=== PATIENT | female | born 1950 | race Caucasian/White ===

== ENCOUNTER → 2022-09-18 09:25 | Outpatient (BNVA) | payer MEDICARE, SELFPAY | PROVIDERS: PCP Family Medicine; Visit Provider Student in an Organized Health Care Education/Training Program | DX: M17.0 Bilateral primary osteoarthritis of knee (principal); M45.9 Ankylosing spondylitis of unspecified sites in spine; M70.61 Trochanteric bursitis, right hip; M70.62 Trochanteric bursitis, left hip; Z79.899 Other long term (current) drug therapy | CPT/HCPCS: 20610; 99202 ==

== ENCOUNTER 2022-09-18 10:48 | Outpatient (REF) | payer MEDICARE, SELFPAY ==
[2022-09-18 13:35] LABS: MANUAL DIFF FLAG NO
[2022-09-18 13:44] LABS: Basophils Absolute Auto 0.1 X10*3/uL (0.0-0.2); Basophils Percent Auto 1.7 % (0-2); Eosinophils Absolute Auto 0.1 X10*3/uL (0.0-0.4); Hematocrit 37.9 % (37.0-47.0); Hemoglobin 12.6 g/dl (12.0-16.0); Lymphocytes Absolute Auto 1.8 X10*3/uL (1.2-4.9); Lymphocytes Percent Auto 49.6 % (20-40); Mean Corpuscular HGB Conc 33.2 g/dl (31.0-35.0); Mean Corpuscular Hemoglobin 31.5 pg (27.0-33.0); Mean Corpuscular Volume 94.8 fL (80.0-98.0); Mean Platelet Volume 11.5 fL (9.4-12.3); Monocytes Absolute Auto 0.3 X10*3/uL (0.1-1.2); Monocytes Percent Auto 8.2 % (2-11); Neutrophils Absolute Auto 1.4 x10*3/uL (2.0-8.3); Neutrophils Percent Auto 38.5 % (45-73); Platelet Count 246 X10*3/uL (160-400); Red Cell Distribution Width 13.4 % (11.0-16.0); White Blood Count 3.6 X10*3/uL (4.8-10.8)
[2022-09-18 14:25] LABS: Erythrocyte Sedimentation Rate 5 MM/HR (0-20)
[2022-09-18 14:44] LABS: Alanine Aminotransferase 17 U/L (0-31); Albumin Level 4.3 g/dL (3.5-5.0); Alkaline Phosphatase 74 U/L (39-117); Anion Gap 11 (12-20); Aspartate Amino Transferase 19 U/L (5-31); Bilirubin Total 0.7 mg/dL (0.0-1.0); Blood Urea Nitrogen 16 mg/dL (9-16); C Reactive Protein < 0.10 mg/dL (< or = 0.50); Calcium 9.5 mg/dL (8.4-10.2); Carbon Dioxide 30 mmol/L (22-29); Chloride 105 mmol/L (96-108); Estimated Glomerular Filt Rate > 60; Glucose Random 94 mg/dL (60-115); Potassium 3.8 mmol/L (3.3-5.1); Sodium 142 mmol/L (135-145); Total Protein 6.8 g/dL (6.5-8.0)
[2022-09-19 10:20] LABS: HBS Num1 48.93 mIU/mL (0-7.99); HBc Num1 0.06 S/CO (0.00-0.79); HBsAGNum1 0.43 S/CO (0.00-0.99); Hepatitis A Antibody IgM 0.14 Index (0-0.79); Hepatitis B Core Antibody Nonreactive (Nonreactive); Hepatitis B Surface Antigen Negative (Negative); ~HepC Num1 0.09 S/CO (0.00-0.79); ~Hepatitis A Antibody IgM Nonreactive (Nonreactive); ~Hepatitis B Surface Antibody REACTIVE (Nonreactive); ~Hepatitis C Antibody Nonreactive (Nonreactive)
[2022-09-20 15:49] LABS: TS Negative Control Passed; TS Panel A 5; TS Panel B 12; TS Positive Control Passed; TSpotTB Positive (Negative)
== END 2022-09-18 10:49 | disposition home or self-care (01) ==
LOC: HO.10HDL 10:48
PROVIDERS: Visit Provider Student in an Organized Health Care Education/Training Program
DX: Z11.1 Encounter for screening for respiratory tuberculosis (principal); M45.9 Ankylosing spondylitis of unspecified sites in spine; M17.0 Bilateral primary osteoarthritis of knee; M70.61 Trochanteric bursitis, right hip; M70.62 Trochanteric bursitis, left hip; Z79.899 Other long term (current) drug therapy; Z11.59 Encounter for screening for other viral diseases; Z72.89 Other problems related to lifestyle
CPT/HCPCS: 20610; 36415; 80053; 85025; 85652; 86140; 86481; 86704; 86706; 86709; 86803; 87340; 99202

== ENCOUNTER 2022-10-10 11:27 | Outpatient (REF) | payer MEDICARE, SELFPAY ==
--- NOTE | ~2022-10-10 | XR_ITS ---
EXAMINATION: XR KNEE, RIGHT XR KNEE, LEFT XR KNEE AP STANDING CLINICAL INFORMATION: Bilateral primary osteoarthritis. COMPARISON: None TECHNIQUE: Four views of the right knee. Four views of the left knee. AP bilateral standing view of the knees was obtained. FINDINGS: RIGHT KNEE: There is marked asymmetric narrowing of the lateral joint space compartment. The medial and patellofemoral compartments are well-maintained. There is tricompartment peripheral osteophyte formation. No fracture or dislocation is seen. There is a small joint effusion. There is no foreign body. LEFT KNEE: Bony mineralization is normal. There is symmetric mild narrowing of the lateral and medial joint space compartments. The patellofemoral compartment shows mild narrowing and articular surface irregularity. No fracture, dislocation or joint effusion is seen. There is no foreign body. XR/XR knee standing BI IMPRESSION: 1. There is tricompartment osteoarthritic change of the right knee, most pronounced of the lateral joint space compartment, where it is severe. 2. There is a small right knee joint effusion. 3. There is mild tricompartment osteoarthritic change of the left knee.
--- NOTE | ~2022-10-10 | XR_ITS ---
EXAMINATION: XR KNEE, RIGHT XR KNEE, LEFT XR KNEE AP STANDING CLINICAL INFORMATION: Bilateral primary osteoarthritis. COMPARISON: None TECHNIQUE: Four views of the right knee. Four views of the left knee. AP bilateral standing view of the knees was obtained. FINDINGS: RIGHT KNEE: There is marked asymmetric narrowing of the lateral joint space compartment. The medial and patellofemoral compartments are well-maintained. There is tricompartment peripheral osteophyte formation. No fracture or dislocation is seen. There is a small joint effusion. There is no foreign body. LEFT KNEE: Bony mineralization is normal. There is symmetric mild narrowing of the lateral and medial joint space compartments. The patellofemoral compartment shows mild narrowing and articular surface irregularity. No fracture, dislocation or joint effusion is seen. There is no foreign body. XR/XR knee RT 3V IMPRESSION: 1. There is tricompartment osteoarthritic change of the right knee, most pronounced of the lateral joint space compartment, where it is severe. 2. There is a small right knee joint effusion. 3. There is mild tricompartment osteoarthritic change of the left knee.
--- NOTE | ~2022-10-10 | XR_ITS ---
EXAMINATION: XR KNEE, RIGHT XR KNEE, LEFT XR KNEE AP STANDING CLINICAL INFORMATION: Bilateral primary osteoarthritis. COMPARISON: None TECHNIQUE: Four views of the right knee. Four views of the left knee. AP bilateral standing view of the knees was obtained. FINDINGS: RIGHT KNEE: There is marked asymmetric narrowing of the lateral joint space compartment. The medial and patellofemoral compartments are well-maintained. There is tricompartment peripheral osteophyte formation. No fracture or dislocation is seen. There is a small joint effusion. There is no foreign body. LEFT KNEE: Bony mineralization is normal. There is symmetric mild narrowing of the lateral and medial joint space compartments. The patellofemoral compartment shows mild narrowing and articular surface irregularity. No fracture, dislocation or joint effusion is seen. There is no foreign body. XR/XR knee LT 3V IMPRESSION: 1. There is tricompartment osteoarthritic change of the right knee, most pronounced of the lateral joint space compartment, where it is severe. 2. There is a small right knee joint effusion. 3. There is mild tricompartment osteoarthritic change of the left knee.
== END 2022-10-10 11:28 | disposition home or self-care (01) ==
LOC: HO.XRAY 11:27
PROVIDERS: PCP Family Medicine; Visit Provider Student in an Organized Health Care Education/Training Program
DX: M17.0 Bilateral primary osteoarthritis of knee (principal)
CPT/HCPCS: 73562; 73564; 73565

== ENCOUNTER → 2022-12-10 10:11 | Outpatient (BNVA) | payer MEDICARE, SELFPAY | PROVIDERS: PCP Family Medicine; Visit Provider Student in an Organized Health Care Education/Training Program | DX: M45.9 Ankylosing spondylitis of unspecified sites in spine (principal); M17.11 Unilateral primary osteoarthritis, right knee; M70.62 Trochanteric bursitis, left hip; M70.61 Trochanteric bursitis, right hip; M19.042 Primary osteoarthritis, left hand; M19.041 Primary osteoarthritis, right hand; Z22.7 Latent tuberculosis; Z79.631 Long term (current) use of antimetabolite agent; Z79.899 Other long term (current) drug therapy | CPT/HCPCS: 20610; 99212 ==

== ENCOUNTER 2023-03-13 08:56 | Outpatient (REF) | payer MEDICARE, SELFPAY ==
[2023-03-13 11:04] LABS: MANUAL DIFF FLAG NO
[2023-03-13 11:43] LABS: Basophils Absolute Auto 0.1 X10*3/uL (0.0-0.2); Basophils Percent Auto 1.3 % (0-2); Eosinophils Absolute Auto 0.2 X10*3/uL (0.0-0.4); Eosinophils Percent Auto 3.6 % (0-4); Hematocrit 38.1 % (37.0-47.0); Hemoglobin 12.4 g/dl (12.0-16.0); Imm Gran Abs Auto 0.01 X10*3/uL (0.00-0.03); Imm Gran Pct Auto 0.2 % (0.0-0.4); Lymphocytes Absolute Auto 2.3 X10*3/uL (1.2-4.9); Lymphocytes Percent Auto 43.6 % (20-40); Mean Corpuscular HGB Conc 32.5 g/dl (31.0-35.0); Mean Corpuscular Volume 95.3 fL (80.0-98.0); Mean Platelet Volume 11.3 fL (9.4-12.3); Monocytes Absolute Auto 0.5 X10*3/uL (0.1-1.2); Monocytes Percent Auto 10.1 % (2-11); Neutrophils Absolute Auto 2.2 x10*3/uL (2.0-8.3); Neutrophils Percent Auto 41.2 % (45-73); Platelet Count 275 X10*3/uL (160-400); Red Cell Distribution Width 13.5 % (11.0-16.0); White Blood Count 5.2 X10*3/uL (4.8-10.8)
[2023-03-13 11:54] LABS: Alanine Aminotransferase 17 U/L (0-31); Albumin Level 4.1 g/dL (3.5-5.0); Alkaline Phosphatase 80 U/L (39-117); Anion Gap 10 (12-20); Aspartate Amino Transferase 20 U/L (5-31); Bilirubin Total 0.8 mg/dL (0.0-1.0); Blood Urea Nitrogen 15 mg/dL (9-16); C Reactive Protein 0.12 mg/dL (< or = 0.50); Calcium 9.6 mg/dL (8.4-10.2); Carbon Dioxide 31 mmol/L (22-29); Chloride 105 mmol/L (96-108); Estimated Glomerular Filt Rate > 60; Glucose Random 67 mg/dL (60-115); Potassium 3.9 mmol/L (3.3-5.1); Sodium 142 mmol/L (135-145); Total Protein 7.1 g/dL (6.5-8.0)
[2023-03-13 12:24] LABS: Erythrocyte Sedimentation Rate 8 MM/HR (0-20)
== END 2023-03-13 08:57 | disposition home or self-care (01) ==
LOC: HO.10HDL 08:56
PROVIDERS: Visit Provider Student in an Organized Health Care Education/Training Program
DX: Z79.899 Other long term (current) drug therapy (principal)
CPT/HCPCS: 36415; 80053; 85025; 85652; 86140

== ENCOUNTER 2023-03-18 08:53 | Outpatient (AMB) | payer MEDICARE, SELFPAY ==
[2023-03-18 09:01] VITALS: BP 114/62; PULSE 68; O2SAT 99; BMI 21.8
--- NOTE | 2023-03-18 09:01 | MHC.OFFVIS ---
Intake Vital Signs 03/18/23 09:01 Height 5 ft 7 in Weight 139 lb 1.787 oz BMI 21.8 BP 114/62 Blood Pressure Location Rt brachial Position Sitting Pulse 68 Pulse Source Pulse Oximeter Pulse Oximetry (%) 99 Intake Visit Reasons: Intake Note: Pt seen today fir follow up. C/o right knee pain. 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 Required: No Accompanied by: Self / Same As Patient Allergies codeine Allergy (Intermediate, Verified 03/18/23 09:04) NAUSEA/VOMITING isoniazid Allergy (Intermediate, Verified 03/18/23 09:04) LFT ABNORMALITY Medication List - Last Reconciled 03/18/23 by Shirley New MD ascorbate calcium (vitamin C) 500 mg PO DAILY calcium citrate-vitamin D2 250 mg-2.5 mcg (100 unit) (Jourdan-Citrate) tabs PO BID cholecalciferol (vitamin D3) 125 mcg PO DAILY etanercept (Enbrel SureClick) 50 mg subcut QWEEK folic acid 0.8 mg PO DAILY magnesium 500 mg PO DAILY methotrexate sodium 12.5 mg (5 x 2.5 mg) PO QWEEK omega 1-com-qrp-fish oil 1,000 mg (120 mg-180 mg) (Fish Oil) 1 cap PO BID vitamins A,C,A-msuo-zzplsf 2,148 mcg-113 mg-45 mg-17.4mg (PreserVision AREDS) 2 tabs PO BID HPI HPI Comments History of Present Illness Details 72-year-old female returns for evaluation of HLA B27 positive ankylosing spondylitis. Doing well overall. The right knee intra-articular steroid injection done last visit provided significant relief for about 6 weeks. Patient stated that she is quite active. No other complaint compliant with methotrexate 12.5 mg weekly and Enbrel weekly Initial history: This is a 72-year-old female presents for evaluation of HLA B27 positive spondylitis as a new patient. 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 The condition started in 2006 and was initially diagnosed as PMR, symptoms appropriately responded to prednisone however once prednisone was tapered patient developed peripheral arthritis. In 2009 she was diagnosed as HLA B27 positive spondylitis. She was started on Enbrel with good response however she developed recurrent right knee effusion and methotrexate was added. She has been on Enbrel and methotrexate since 2010 with relatively good control of her symptoms. No history suggestive of uveitis or inflammatory bowel disease. Patient's main complaint today is right knee pain. Patient has had chronic right knee pain. She has had about 7 intra-articular cortisone injections in the past which provided some relief. Last injection was in June which gave her relief for 6-8 weeks. She has been going to physical therapy for her knee for 3 months during the fall without improvement. She has difficulty walking. She also was diagnosed with bilateral hip trochanteric bursitis and received steroid injections in the past which do provide some relief. [facility] Medical History Allergic rhinitis Ankylosing spondylitis Constipation DJD (degenerative joint disease) GERD (gastroesophageal reflux disease) IBS (irritable bowel syndrome) On usp drug therapy Sleep disorder Urge incontinence Surgical History No history of previous surgery Family History Mother Diabetes CVA (cerebral vascular accident) Arthritis Father Dementia Rheumatoid arthritis Maternal Grandmother Colon cancer Paternal Grandfather Heart disease Paternal Grandmother No problems noted. 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 Systems [facility] [place] Reports arthralgias Physical Exam Vital Signs: Last Vital Signs Pulse 68 03/18/23 09:01 BP 114/62 03/18/23 09:01 Pulse Ox 99 03/18/23 09:01 BMI result Body Mass Index 21.8 Const General: cooperative, healthy appearing, comfortable and no acute distress Nutritional Appearance: average body habitus Orientation/consciousness: patient oriented x3 Limitations: no limitations HEENT Head: Yes normocephalic and Yes atraumatic Mouth: moist mucous membranes Resp Effort & Inspection: normal respiratory effort and able to speak in complete sentences Auscultation: clear to auscultation bilaterally Cardio Rate: regular rate Rhythm: regular rhythm Heart sounds: S1 normal heart sound present and S2 normal heart sound present GI Inspection: No distended Palpation (GI): Soft to palpation and nontender Skin General skin exam: no rashes or lesions noted Neuro General: patient oriented x3 Extrem Other: Osteoarthritic changes of both hands with Heberden's and Priya's nodes with no active synovitis. Normal nailfold capillaroscopy Bilateral knee crepitus worse on the right Right knee pain with full extension and flexion Office Procedures Joint Injection/Drain Joint Injection/Drain Primary Site: right knee Prep: site was prepped using sterile technique and ethochloride spray was applied Injected: 40 mg of, Kenalog and other (2 mL of 1% lidocaine) Approach Used: medial parapatellar Procedure: The patient tolerated the procedure well Coding Details: With the patient's consent the right knee was prepped with ChloraPrep and alcohol. The skin was anesthetized with 2 cc of 1% lidocaine. The knee was then injected with 40 mg of triamcinolone and 2 cc of I % lidocaine. The patient tolerated the procedure with no immediate adverse effects. 29209 - Large joint Procedure code (CPT) selection complete Assessment & Plan Assessment & Plan (1) Ankylosing spondylitis: Comment: HLA B27 positive, diagnosed 2009 Enbrel started 2009 Methotrexate added 2010 Code(s): M45.9 - Ankylosing spondylitis of unspecified sites in spine Qualifiers: Ankylosing spondylitis location: unspecified site of spine Qualified Code(s): M45.9 - Ankylosing spondylitis of unspecified sites in spine Plan: This is a 72-year-old female who presents for evaluation of HLA B27 positive ankylosing spondylitis. She was initially diagnosed with PMR in 2006 and symptoms appropriately responded to steroids however she developed peripheral arthritis, she was then diagnosed as HLA B B27 positive ankylosing spondylitis and started on Enbrel, soon after methotrexate was added due to recurrent right knee effusion. Symptoms are stable. The majority of her complaints today are due to knee osteoarthritis Continue Enbrel once weekly and methotrexate 12.5 mg weekly plus folic acid Patient is on the patient assistance program from [employer] (2) Bilateral primary osteoarthritis of knee: Code(s): M17.0 - Bilateral primary osteoarthritis of knee Plan: Seems to be the most problematic symptom today. Right knee is worse. Reviewed right knee x-rays which showed severe OA changes in the lateral compartment. Most recent cortisone injection lasted about 6 weeks. Patient received numerous cortisone injections in the past. Initially they lasted more than 3 months, most recent injection only lasted 6 weeks. Cortisone injection seems to be less efficacious. Patient is interested in gel injections. With patient's consent right knee was injected with Kenalog today. Patient is not interested in right knee replacement at this time. 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 She has not had any major side effects. Safety labs every 4-6 months (4) Latent tuberculosis by blood test: Code(s): Z22.7 - Latent tuberculosis Plan: Completed INH treatment back in 2009 Plan I spent 30 minutes reviewing patient's chart, evaluating patient, ordering diagnostic workup, counseling patient and documenting in the chart Orders: Orders AMB Joint Injection/Aspiration Today M17.11 - Unilateral primary osteoarthritis, right knee Medications: Refilled methotrexate sodium 12.5 mg (5 x 2.5 mg) PO QWEEK 60 tabs 1RF Coding Level of Care Code Est Pt Level 4 (58617) Diagnoses Ankylosing spondylitis M45.9 Ankylosing spondylitis location: unspecified site of spine Bilateral primary osteoarthritis of knee M17.0 On usp drug therapy Z79.899 Latent tuberculosis by blood test Z22.7 CPT Codes Coding - 95342 Large joint: 84098 - Large joint ([id number])
== END 2023-03-18 09:34 | disposition home or self-care (01) ==
PROVIDERS: PCP Family Medicine; Visit Provider Student in an Organized Health Care Education/Training Program
DX: M45.9 Ankylosing spondylitis of unspecified sites in spine (principal); M17.0 Bilateral primary osteoarthritis of knee; Z79.899 Other long term (current) drug therapy; Z22.7 Latent tuberculosis
CPT/HCPCS: 20610; 99214

== ENCOUNTER → 2023-03-18 08:53 | Outpatient (BNVA) | payer MEDICARE, SELFPAY | PROVIDERS: PCP Family Medicine; Visit Provider Student in an Organized Health Care Education/Training Program | DX: M45.9 Ankylosing spondylitis of unspecified sites in spine (principal); M17.11 Unilateral primary osteoarthritis, right knee; Z22.7 Latent tuberculosis; Z79.52 Long term (current) use of systemic steroids; Z79.631 Long term (current) use of antimetabolite agent | CPT/HCPCS: 20610; 99212 ==

== ENCOUNTER 2023-06-12 15:43 | Outpatient (AMB) | payer MEDICARE, SELFPAY ==
--- NOTE | 2023-06-12 15:54 | MHC.OFFVIS ---
Intake Vital Signs 06/12/23 15:56 Height 5 ft 7 in Weight 126 lb 1.671 oz BMI 19.7 BP 116/64 Blood Pressure Location Rt brachial Position Sitting Pulse 78 Pulse Source Pulse Oximeter Pulse Oximetry (%) 96 Intake Visit Reasons: /Euflexxa inj Intake Note: Pt seen today for follow up and euflexxa injection #1 Director Of Residential Services Required: No Accompanied by: Self / Same As Patient Allergies codeine Allergy (Intermediate, Verified 03/18/23 09:04) NAUSEA/VOMITING isoniazid Allergy (Intermediate, Verified 03/18/23 09:04) LFT ABNORMALITY Medication List - Last Reconciled 06/12/23 by Shirley New MD ascorbate calcium (vitamin C) 500 mg PO DAILY calcium citrate-vitamin D2 250 mg-2.5 mcg (100 unit) (Jourdan-Citrate) tabs PO BID cholecalciferol (vitamin D3) 125 mcg PO DAILY etanercept (Enbrel SureClick) 50 mg subcut QWEEK folic acid 0.8 mg PO DAILY magnesium 500 mg PO DAILY methotrexate sodium 12.5 mg (5 x 2.5 mg) PO QWEEK omega 8-cdx-mvo-fish oil 1,000 mg (120 mg-180 mg) (Fish Oil) 1 cap PO BID sodium hyaluronate (viscosup) (Euflexxa) 20 mg (2 mL) intra-articular QWEEK 3 doses vitamins A,C,U-knjb-hauexm 2,148 mcg-113 mg-45 mg-17.4mg (PreserVision AREDS) 2 tabs PO BID HPI HPI Comments History of Present Illness Details 72-year-old female with HLA B27 positive ankylosing spondylitis returns for follow-up. She is here for her 1st Euflexxa injection for her right knee. Initial history: This is a 72-year-old female presents for evaluation of HLA B27 positive spondylitis as a new patient. 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 The condition started in 2006 and was initially diagnosed as PMR, symptoms appropriately responded to prednisone however once prednisone was tapered patient developed peripheral arthritis. In 2009 she was diagnosed as HLA B27 positive spondylitis. She was started on Enbrel with good response however she developed recurrent right knee effusion and methotrexate was added. She has been on Enbrel and methotrexate since 2010 with relatively good control of her symptoms. No history suggestive of uveitis or inflammatory bowel disease. Patient's main complaint today is right knee pain. Patient has had chronic right knee pain. She has had about 7 intra-articular cortisone injections in the past which provided some relief. Last injection was in June which gave her relief for 6-8 weeks. She has been going to physical therapy for her knee for 3 months during the fall without improvement. She has difficulty walking. She also was diagnosed with bilateral hip trochanteric bursitis and received steroid injections in the past which do provide some relief. 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 Systems [facility] [place] Reports arthralgias Physical Exam Vital Signs: Last Vital Signs Pulse 78 06/12/23 15:56 BP 116/64 06/12/23 15:56 Pulse Ox 96 06/12/23 15:56 BMI result Body Mass Index 19.7 Const General: cooperative, healthy appearing, comfortable and no acute distress Nutritional Appearance: average body habitus Orientation/consciousness: patient oriented x3 Limitations: no limitations HEENT Head: Yes normocephalic and Yes atraumatic Resp Effort & Inspection: normal respiratory effort and able to speak in complete sentences Neuro General: patient oriented x3 Extrem Other: Bilateral knee crepitus worse on the right Right knee pain with full extension and flexion Office Procedures Joint Injection/Drain Joint Injection/Drain Primary Site: right knee Prep: site was prepped using sterile technique and ethochloride spray was applied Approach Used: medial parapatellar Procedure: The patient tolerated the procedure well Coding Details: With the patient's consent the right knee was prepped with ChloraPrep and alcohol. The skin was anesthetized with 2 cc of 1% lidocaine. The knee was then injected with 20 mg of Euflexxa. The patient tolerated the procedure with no immediate adverse effects. - Large joint Procedure code (CPT) selection complete Assessment & Plan Assessment & Plan (1) Bilateral primary osteoarthritis of knee: Code(s): M17.0 - Bilateral primary osteoarthritis of knee Plan: Seems to be the most persistent problem. Right knee is worse. Reviewed right knee x-rays which showed severe OA changes in the lateral compartment. Most recent cortisone injection lasted about 6 weeks. Patient received numerous cortisone injections in the past. Initially they lasted more than 3 months, most recent injection only lasted 6 weeks. Cortisone injection seems to be less efficacious. We had discussed gel injections and patient agreed to proceed. With patient's consent the right knee was injected with 20 mg of Euflexxa today. Follow-up next week for 2nd dose Orders: Orders Complete Blood Count Auto Diff 1 Week M45.9 - Ankylosing spondylitis of unspecified sites in spine C Reactive Protein 1 Week M45.9 - Ankylosing spondylitis of unspecified sites in spine Erythrocyte Sedimentation Rate 1 Week M45.9 - Ankylosing spondylitis of unspecified sites in spine AMB Joint Injection/Aspiration Today M17.11 - Unilateral primary osteoarthritis, right knee Comprehensive Met. Panel 1 Week M45.9 - Ankylosing spondylitis of unspecified sites in spine Coding Level of Care Code Est Pt Level 3 (91934) Diagnoses Bilateral primary osteoarthritis of knee M17.0 CPT Codes Coding - Large joint: 65317 - Large joint ([id number])
[2023-06-12 15:56] VITALS: BP 116/64; PULSE 78; O2SAT 96; BMI 19.7
== END 2023-06-12 16:17 | disposition home or self-care (01) ==
PROVIDERS: PCP Family Medicine; Visit Provider Student in an Organized Health Care Education/Training Program
DX: M17.0 Bilateral primary osteoarthritis of knee (principal)
CPT/HCPCS: 20610; 99213

== ENCOUNTER → 2023-06-12 15:43 | Outpatient (BNVA) | payer MEDICARE, SELFPAY | PROVIDERS: PCP Family Medicine; Visit Provider Student in an Organized Health Care Education/Training Program | DX: M17.0 Bilateral primary osteoarthritis of knee (principal); M45.9 Ankylosing spondylitis of unspecified sites in spine | CPT/HCPCS: 20610; 99212; J7323 ==

== ENCOUNTER 2023-06-19 15:40 | Outpatient (AMB) | payer MEDICARE, SELFPAY ==
--- NOTE | 2023-06-19 15:39 | A.OFFVIS_ITS ---
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 Accompanied by: Self / Same As Patient Allergies codeine Allergy (Intermediate, Verified 03/18/23 09:04) NAUSEA/VOMITING isoniazid Allergy (Intermediate, Verified 03/18/23 09:04) LFT ABNORMALITY Medication List - Last Reconciled 06/19/23 by Shirley Nwe MD ascorbate calcium (vitamin C) 500 mg PO DAILY calcium citrate-vitamin D2 250 mg-2.5 mcg (100 unit) (Jourdan-Citrate) tabs PO BID cholecalciferol (vitamin D3) 125 mcg PO DAILY etanercept (Enbrel SureClick) 50 mg subcut QWEEK folic acid 0.8 mg PO DAILY magnesium 500 mg PO DAILY methotrexate sodium 12.5 mg (5 x 2.5 mg) PO QWEEK omega 6-aoz-ydu-fish oil 1,000 mg (120 mg-180 mg) (Fish Oil) 1 cap PO BID sodium hyaluronate (viscosup) (Euflexxa) 20 mg (2 mL) intra-articular QWEEK 3 doses vitamins A,C,O-zehr-grshvi 2,148 mcg-113 mg-45 mg-17.4mg (PreserVision AREDS) 2 tabs PO BID HPI HPI Comments History of Present Illness Details 72-year-old female with HLA B27 positive ankylosing spondylitis returns for follow-up. She is here for her 2nd Euflexxa injection for her right knee. States that her right knee was doing well over the last week, was quite active. She noticed while walking that her right knee is angled outside and clicks. She states that she has an ahdw-qka-bpemkau knee brace that helps. She denies any knee buckling or giving out. Initial history: This is a 72-year-old female presents for evaluation of HLA B27 positive spondylitis as a new patient. Her previous case management assistant left the practice. The condition started in 2006 and was initially diagnosed as PMR, symptoms appropriately responded to prednisone however once prednisone was tapered patient developed peripheral arthritis. In 2009 she was diagnosed as HLA B27 positive spondylitis. She was started on Enbrel with good response however she developed recurrent right knee effusion and methotrexate was added. She has been on Enbrel and methotrexate since 2010 with relatively good control of her symptoms. No history suggestive of uveitis or inflammatory bowel disease. Patient's main complaint today is right knee pain. Patient has had chronic right knee pain. She has had about 7 intra-articular cortisone injections in the past which provided some relief. Last injection was in June which gave her relief for 6-8 weeks. She has been going to physical therapy for her knee for 3 months during the fall without improvement. She has difficulty walking. She also was diagnosed with bilateral hip trochanteric bursitis and received steroid injections in the past which do provide some relief. 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 Systems [facility] [place] Reports arthralgias Physical Exam Vital Signs: Last Vital Signs Temp 97.3 F 06/19/23 15:41 Pulse 64 06/19/23 15:41 BP 108/62 06/19/23 15:41 Pulse Ox 97 06/19/23 15:41 BMI result Body Mass Index 19.7 Const General: cooperative, healthy appearing, comfortable and no acute distress Nutritional Appearance: average body habitus Orientation/consciousness: patient oriented x3 Limitations: no limitations HEENT Head: Yes normocephalic and Yes atraumatic Resp Effort & Inspection: normal respiratory effort and able to speak in complete sentences Neuro General: patient oriented x3 Extrem Other: Right knee valgus, more prominent with walking Equivocal Aaron's test on the right Bilateral knee crepitus worse on the right Right knee pain with full extension and flexion Office Procedures Joint Injection/Drain Joint Injection/Drain Primary Site: right knee Prep: site was prepped using sterile technique and ethochloride spray was applied Approach Used: medial parapatellar Procedure: The patient tolerated the procedure well Coding Details: With the patient's consent the right knee was prepped with ChloraPrep and alcohol. The skin was anesthetized with 2 cc of 1% lidocaine. The knee was then injected with 20 mg of Euflexxa. The patient tolerated the procedure with no immediate adverse effects. 13189 - Large joint Procedure code (CPT) selection complete Assessment & Plan Assessment & Plan (1) Bilateral primary osteoarthritis of knee: Code(s): M17.0 - Bilateral primary osteoarthritis of knee Plan: Seems to be the most persistent problem. Right knee is worse. Reviewed right knee x-rays which showed severe OA changes in the lateral compartment. Most recent cortisone injection lasted about 6 weeks. Patient received numerous cortisone injections in the past. Initially they lasted more than 3 months, most recent injection only lasted 6 weeks. Cortisone injection seems to be less efficacious. We had discussed gel injections and patient agreed to proceed. Today patient received her 2nd Euflexxa injection, follow-up next week for 3rd dose Orders: Orders AMB Joint Injection/Aspiration Today M17.11 - Unilateral primary osteoarthritis, right knee Coding Level of Care Code Est Pt Level 3 (62940) Diagnoses Bilateral primary osteoarthritis of knee M17.0 CPT Codes Coding - 67454 Large joint: 94467 - Large joint ([id number])
[2023-06-19 15:41] VITALS: BP 108/62; PULSE 64; TEMP 36.3; O2SAT 97; BMI 19.7
== END 2023-06-19 16:09 | disposition home or self-care (01) ==
PROVIDERS: PCP Family Medicine; Visit Provider Student in an Organized Health Care Education/Training Program
DX: M17.0 Bilateral primary osteoarthritis of knee (principal)
CPT/HCPCS: 20610; 99213

== ENCOUNTER → 2023-06-19 15:40 | Outpatient (BNVA) | payer MEDICARE, SELFPAY | PROVIDERS: PCP Family Medicine; Visit Provider Student in an Organized Health Care Education/Training Program | DX: M17.0 Bilateral primary osteoarthritis of knee (principal) | CPT/HCPCS: 20610; 99212 ==

== ENCOUNTER 2023-06-26 15:21 | Outpatient (AMB) | payer MEDICARE, SELFPAY ==
--- NOTE | 2023-06-26 15:33 | MHC.OFFVIS ---
Intake Vital Signs 06/26/23 15:35 Height 5 ft 7 in Weight 125 lb 0.034 oz BMI 19.6 BP 138/66 Blood Pressure Location Rt brachial Position Sitting Pulse 70 Pulse Source Pulse Oximeter Temp 97.5 F Temp Source Skin Pulse Oximetry (%) 98 Intake Visit Reasons: /euflexxa inj Intake Note: Pt presents today for follow up and euflexxa injection #3. 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 Required: Yes Accompanied by: Self / Same As Patient Allergies codeine Allergy (Intermediate, Verified 06/26/23 15:39) NAUSEA/VOMITING isoniazid Allergy (Intermediate, Verified 06/26/23 15:39) LFT ABNORMALITY Medication List - Last Reconciled 06/26/23 by Shirley New MD ascorbate calcium (vitamin C) 500 mg PO DAILY calcium citrate-vitamin D2 250 mg-2.5 mcg (100 unit) (Jourdan-Citrate) tabs PO BID cholecalciferol (vitamin D3) 125 mcg PO DAILY etanercept (Enbrel SureClick) 50 mg subcut Q8D folic acid 0.8 mg PO DAILY magnesium 500 mg PO DAILY methotrexate sodium 12.5 mg (5 x 2.5 mg) PO QWEEK omega 3-crs-zqw-fish oil 1,000 mg (120 mg-180 mg) (Fish Oil) 1 cap PO BID sodium hyaluronate (viscosup) (Euflexxa) 20 mg (2 mL) intra-articular QWEEK 3 doses vitamins A,C,F-gvfx-kfimpq 2,148 mcg-113 mg-45 mg-17.4mg (PreserVision AREDS) 2 tabs PO BID HPI HPI Comments History of Present Illness Details 72-year-old female with HLA B27 positive ankylosing spondylitis returns for follow-up. She is here for her 3rd Euflexxa injection for her right knee. States that her right knee was doing well over the last 2 weeks, was quite active. She has some stiffness Of her fingers. She has been doing plenty of walking, strength training and stretching exercises. Initial history: This is a 72-year-old female presents for evaluation of HLA B27 positive spondylitis as a new patient. Her previous occupational therapist left the practice. The condition started in 2006 and was initially diagnosed as PMR, symptoms appropriately responded to prednisone however once prednisone was tapered patient developed peripheral arthritis. In 2009 she was diagnosed as HLA B27 positive spondylitis. She was started on Enbrel with good response however she developed recurrent right knee effusion and methotrexate was added. She has been on Enbrel and methotrexate since 2010 with relatively good control of her symptoms. No history suggestive of uveitis or inflammatory bowel disease. Patient's main complaint today is right knee pain. Patient has had chronic right knee pain. She has had about 7 intra-articular cortisone injections in the past which provided some relief. Last injection was in June which gave her relief for 6-8 weeks. She has been going to physical therapy for her knee for 3 months during the fall without improvement. She has difficulty walking. She also was diagnosed with bilateral hip trochanteric bursitis and received steroid injections in the past which do provide some relief. 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 Systems [facility] [place] Reports arthralgias Physical Exam Vital Signs: Last Vital Signs Temp 97.5 F 06/26/23 15:35 Pulse 70 06/26/23 15:35 BP 138/66 06/26/23 15:35 Pulse Ox 98 06/26/23 15:35 BMI result Body Mass Index 19.6 Const General: cooperative, healthy appearing, comfortable and no acute distress Nutritional Appearance: average body habitus Orientation/consciousness: patient oriented x3 Limitations: no limitations HEENT Head: Yes normocephalic and Yes atraumatic Resp Effort & Inspection: normal respiratory effort and able to speak in complete sentences Neuro General: patient oriented x3 Extrem Other: Osteoarthritic changes of both hands with prominent Priya's and Heberden's nodes Minimally stiff shoulders with full abduction Negative rotator cuff provocative maneuvers bilaterally Right knee valgus, more prominent with walking Equivocal Aaron's test on the right Bilateral knee crepitus worse on the right Office Procedures Joint Injection/Drain Joint Injection/Drain Primary Site: right knee Approach Used: medial parapatellar Procedure: The patient tolerated the procedure well Coding Details: With the patient's consent the right knee was prepped with ChloraPrep and alcohol. The skin was anesthetized with 2 cc of 1% lidocaine. The knee was then injected with 20 mg of Euflexxa. The patient tolerated the procedure with no immediate adverse effects. 97903 - Large joint Procedure code (CPT) selection complete Assessment & Plan Assessment & Plan (1) Ankylosing spondylitis: Comment: HLA B27 positive, diagnosed 2009 Enbrel started 2009 Methotrexate added 2010 Code(s): M45.9 - Ankylosing spondylitis of unspecified sites in spine Qualifiers: Ankylosing spondylitis location: unspecified site of spine Qualified Code(s): M45.9 - Ankylosing spondylitis of unspecified sites in spine Plan: This is a 72-year-old female who presents for evaluation of HLA B27 positive ankylosing spondylitis. She was initially diagnosed with PMR in 2006 and symptoms appropriately responded to steroids however she developed peripheral arthritis, she was then diagnosed as HLA B B27 positive ankylosing spondylitis and started on Enbrel, soon after methotrexate was added due to recurrent right knee effusion. Patient is in remission on methotrexate 12.5 mg weekly and Enbrel 50 mg every 8 days. Reduce methotrexate to 10 mg weekly, continue with Enbrel 50 mg every 8 days Advised patient to get blood work soon and before next visit in 3 months (2) Bilateral primary osteoarthritis of knee: Code(s): M17.0 - Bilateral primary osteoarthritis of knee Plan: Especially the right knee. Steroid injections became much less helpful. She completed Euflexxa injection series today. 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 She has not had any major side effects. Safety labs every 3-4 months (4) Latent tuberculosis by blood test: Code(s): Z22.7 - Latent tuberculosis Plan: Completed INH treatment back in 2009 (5) Immunization counseling: Code(s): Z71.85 - Encounter for immunization safety counseling Plan: Patient is up-to-date on her vaccinations. She received the new COVID booster (how she received a total of 4 COVID vaccination), received flu vaccine for this season, RSV and varicella zoster vaccine Plan I spent 35 minutes reviewing patient's chart, evaluating patient, ordering diagnostic workup, counseling patient and documenting in the chart Orders: Orders Complete Blood Count Auto Diff 3 Months Z79.899 - Other senior living (current) drug therapy C Reactive Protein 3 Months Z79.899 - Other senior living (current) drug therapy AMB Joint Injection/Aspiration Today M17.11 - Unilateral primary osteoarthritis, right knee Comprehensive Met. 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
[2023-06-26 15:35] VITALS: BP 138/66; PULSE 70; TEMP 36.4; O2SAT 98; BMI 19.6
== END 2023-06-26 16:08 | disposition home or self-care (01) ==
PROVIDERS: PCP Family Medicine; Visit Provider Student in an Organized Health Care Education/Training Program
DX: M45.9 Ankylosing spondylitis of unspecified sites in spine (principal); M17.0 Bilateral primary osteoarthritis of knee; Z79.899 Other long term (current) drug therapy; Z22.7 Latent tuberculosis; Z71.85 Encounter for immunization safety counseling
CPT/HCPCS: 20610; 99214

== ENCOUNTER → 2023-06-26 15:21 | Outpatient (BNVA) | payer MEDICARE, SELFPAY | PROVIDERS: PCP Family Medicine; Visit Provider Student in an Organized Health Care Education/Training Program | DX: M17.0 Bilateral primary osteoarthritis of knee (principal); M45.9 Ankylosing spondylitis of unspecified sites in spine; Z71.85 Encounter for immunization safety counseling; Z22.7 Latent tuberculosis; Z79.899 Other long term (current) drug therapy | CPT/HCPCS: 20610; 99212 ==

== ENCOUNTER 2023-06-30 12:26 | Outpatient (REF) | payer MEDICARE, SELFPAY ==
[2023-06-30 13:41] LABS: MANUAL DIFF FLAG NO
[2023-06-30 13:45] LABS: Basophils Percent Auto 0.7 % (0-2); Eosinophils Absolute Auto 0.1 X10*3/uL (0.0-0.4); Eosinophils Percent Auto 2.2 % (0-4); Hematocrit 36.8 % (37.0-47.0); Hemoglobin 12.1 g/dl (12.0-16.0); Lymphocytes Percent Auto 48.7 % (20-40); Mean Corpuscular HGB Conc 32.9 g/dl (31.0-35.0); Mean Corpuscular Hemoglobin 30.5 pg (27.0-33.0); Mean Corpuscular Volume 92.7 fL (80.0-98.0); Mean Platelet Volume 11.1 fL (9.4-12.3); Monocytes Absolute Auto 0.3 X10*3/uL (0.1-1.2); Monocytes Percent Auto 7.3 % (2-11); Neutrophils Absolute Auto 1.7 x10*3/uL (2.0-8.3); Neutrophils Percent Auto 41.1 % (45-73); Platelet Count 236 X10*3/uL (160-400); Red Blood Count 3.97 X10*6/uL (4.20-5.50); Red Cell Distribution Width 13.8 % (11.0-16.0); White Blood Count 4.1 X10*3/uL (4.8-10.8)
[2023-06-30 13:55] LABS: Alanine Aminotransferase 19 U/L (0-31); Albumin Level 4.2 g/dL (3.5-5.0); Alkaline Phosphatase 59 U/L (39-117); Anion Gap 14 (12-20); Aspartate Amino Transferase 21 U/L (5-31); Bilirubin Total 0.8 mg/dL (0.0-1.0); Blood Urea Nitrogen 14 mg/dL (9-16); C Reactive Protein < 0.10 mg/dL (< or = 0.50); Calcium 9.4 mg/dL (8.4-10.2); Carbon Dioxide 28 mmol/L (22-29); Chloride 104 mmol/L (96-108); Estimated Glomerular Filt Rate > 60; Glucose Random 89 mg/dL (60-115); Potassium 3.9 mmol/L (3.3-5.1); Sodium 142 mmol/L (135-145); Total Protein 6.8 g/dL (6.5-8.0)
[2023-06-30 14:23] LABS: Erythrocyte Sedimentation Rate 2 MM/HR (0-20)
== END 2023-06-30 12:27 | disposition home or self-care (01) ==
LOC: HO.10HDL 12:26
PROVIDERS: Visit Provider Student in an Organized Health Care Education/Training Program
DX: M45.9 Ankylosing spondylitis of unspecified sites in spine (principal)
CPT/HCPCS: 36415; 80053; 85025; 85652; 86140

== ENCOUNTER 2023-07-10 14:18 | Outpatient (REF) | payer MEDICARE, SELFPAY ==
--- NOTE | ~2023-07-10 | MM_ITS ---
EXAMINATION: BONE DENSITOMETRY CLINICAL INDICATION: Osteopenia. COMPARISON: This is the patient's baseline examination. TECHNIQUE: Using a [employer] DXA System (software version: 13.1) manufactured by [employer], dual-energy x-ray absorptiometry was performed of the lumbar spine and left hip. The images are of good technical quality. Summary results are attached. FINDINGS: LEFT FEMUR, NECK: BMD 0.723 g/cm2, Z-score -0.3, T-score -2.3, osteopenia. LEFT FEMUR, TOTAL: BMD 0.808 g/cm2, Z-score 0.2, T-score -1.6, osteopenia. AP SPINE L1-L4: BMD 1.107 g/cm2, Z-score 1.4, T-score -0.6, normal. IDENTIFIED RISK FACTORS: Menopause, height loss, rheumatoid arthritis. HISTORY OF FRACTURE: None listed. MEDICATIONS: Calcium, vitamin D. MM/XR DEXA axial skeleton IMPRESSION: 1. DIAGNOSIS: Osteopenia based on the lowest T-score value of -2.3 in the femoral neck applying World Health Organization criteria. 2. 10-YEAR FRACTURE RISK PREDICTION, FRAX: Major osteoporotic fracture (clinical spine, forearm, hip or shoulder) 15.4%. Hip fracture 4.5%. 3. Treatment Recommendations: NOF guidelines recommend consideration for treatment in postmenopausal women and men age 50 and older presenting with the following: -A hip or vertebral (clinical or morphometric) fracture. -T-score less than or equal to -2.5 at the femoral neck or spine after appropriate evaluation to exclude secondary causes. -Low bone mass at the hip or spine and a 10-year fracture probability by FRAX of greater than or equal to 3% for hip fracture or greater than or equal to 20% for major osteoporotic fracture based on the [place] adapted WHO algorithm. 4. Other Recommendations: All treatment decisions require clinical judgment and consideration of individual patient factors, including patient preferences, comorbidities, previous drug use, risk factors not captured in the FRAX model (e.g. frailty, falls, vitamin D deficiency, increased bone turnover, interval significant decline in bone density) and possible under or overestimation of fracture risk by FRAX. Additional medical evaluation for secondary cause of low bone mineral density may be appropriate. FUTURE SCAN RECOMMENDATION: People with diagnosed cases of osteoporosis or at high risk for fracture should have regular bone mineral density tests. For patients eligible for Medicare, routine testing is allowed once every 2 years. The testing frequency can be increased to one year for patients who have rapidly progressing disease, those who are receiving or discontinuing medical therapy to restore bone mass, or have additional risk factors.
== END 2023-07-10 14:19 | disposition home or self-care (01) ==
LOC: HO.MAMMO 14:18
PROVIDERS: Absent Provider Student in an Organized Health Care Education/Training Program; PCP Family Medicine; Visit Provider Nurse Practitioner Family
DX: Z13.820 Encounter for screening for osteoporosis (principal); M85.80 Other specified disorders of bone density and structure, unspecified site; Z78.0 Asymptomatic menopausal state
CPT/HCPCS: 77080

== ENCOUNTER 2023-09-25 12:40 | Outpatient (REF) | payer MEDICARE, SELFPAY ==
[2023-09-25 13:52] LABS: MANUAL DIFF FLAG NO
[2023-09-25 13:56] LABS: Basophils Absolute Auto 0.1 X10*3/uL (0.0-0.2); Basophils Percent Auto 1.6 % (0-2); Eosinophils Absolute Auto 0.1 X10*3/uL (0.0-0.4); Eosinophils Percent Auto 2.4 % (0-4); Hematocrit 37.8 % (37.0-47.0); Hemoglobin 12.3 g/dl (12.0-16.0); Imm Gran Abs Auto 0.01 X10*3/uL (0.00-0.03); Imm Gran Pct Auto 0.3 % (0.0-0.4); Lymphocytes Absolute Auto 1.8 X10*3/uL (1.2-4.9); Lymphocytes Percent Auto 46.8 % (20-40); Mean Corpuscular HGB Conc 32.5 g/dl (31.0-35.0); Mean Corpuscular Hemoglobin 31.4 pg (27.0-33.0); Mean Corpuscular Volume 96.4 fL (80.0-98.0); Mean Platelet Volume 11.4 fL (9.4-12.3); Monocytes Absolute Auto 0.3 X10*3/uL (0.1-1.2); Monocytes Percent Auto 8.9 % (2-11); Neutrophils Absolute Auto 1.5 x10*3/uL (2.0-8.3); Platelet Count 249 X10*3/uL (160-400); Red Blood Count 3.92 X10*6/uL (4.20-5.50); Red Cell Distribution Width 13.7 % (11.0-16.0); White Blood Count 3.8 X10*3/uL (4.8-10.8)
[2023-09-25 14:16] LABS: Alanine Aminotransferase 17 U/L (0-31); Albumin Level 4.2 g/dL (3.5-5.0); Alkaline Phosphatase 64 U/L (39-117); Anion Gap 11 (12-20); Aspartate Amino Transferase 20 U/L (5-31); Bilirubin Total 0.7 mg/dL (0.0-1.0); Blood Urea Nitrogen 14 mg/dL (9-16); C Reactive Protein < 0.04 mg/dL (< or = 0.50); Calcium 9.4 mg/dL (8.4-10.2); Carbon Dioxide 30 mmol/L (22-29); Chloride 104 mmol/L (96-108); Estimated Glomerular Filt Rate > 60; Glucose Random 105 mg/dL (60-115); Potassium 3.7 mmol/L (3.3-5.1); Sodium 141 mmol/L (135-145); Total Protein 6.8 g/dL (6.5-8.0)
[2023-09-25 14:44] LABS: Erythrocyte Sedimentation Rate 3 MM/HR (0-20)
== END 2023-09-25 12:41 | disposition home or self-care (01) ==
LOC: HO.10HDL 12:40
PROVIDERS: PCP Family Medicine; Visit Provider Student in an Organized Health Care Education/Training Program
DX: Z79.899 Other long term (current) drug therapy (principal)
CPT/HCPCS: 36415; 80053; 85025; 85652; 86140

== ENCOUNTER 2023-09-30 09:52 | Outpatient (AMB) | payer MEDICARE, SELFPAY ==
[2023-09-30 09:58] VITALS: BP 122/64; TEMP 35.9; BMI 18.0
--- NOTE | 2023-09-30 09:58 | MHC.OFFVIS ---
Intake Vital Signs 09/30/23 09:58 Height 5 ft 7 in Weight 114 lb 13.773 oz BMI 18.0 BP 122/64 Blood Pressure Location Rt brachial Position Sitting Temp 96.7 F L Temp Source Skin Intake Visit Reasons: Intake Note: Patient last seen 06/26/23 presents today for follow up and test results. States her knee pain has improved after Euflexxa series. Reports feeling extremely depressed, not eating or sleeping well. Senior Attorney Required: No Accompanied by: Self / Same As Patient Allergies codeine Allergy (Intermediate, Verified 09/30/23 10:02) NAUSEA/VOMITING isoniazid Allergy (Intermediate, Verified 09/30/23 10:02) LFT ABNORMALITY Medication List - Last Reconciled 09/30/23 by Shirley New MD alendronate 70 mg PO QWEEK ascorbate calcium (vitamin C) 500 mg PO DAILY calcium citrate-vitamin D2 250 mg-2.5 mcg (100 unit) (Jourdan-Citrate) tabs PO BID cholecalciferol (vitamin D3) 125 mcg PO DAILY etanercept (Enbrel SureClick) 50 mg subcut QWEEK folic acid 0.8 mg PO DAILY magnesium 500 mg PO DAILY methotrexate sodium 10 mg PO QWEEK omega 4-iuj-oid-fish oil 1,000 mg (120 mg-180 mg) (Fish Oil) 1 cap PO BID sodium hyaluronate (viscosup) (Euflexxa) 20 mg (2 mL) intra-articular QWEEK 3 doses vitamins A,C,F-vqlf-loninl 2,148 mcg-113 mg-45 mg-17.4mg (PreserVision AREDS) 2 tabs PO BID HPI HPI Comments History of Present Illness Details 73-year-old female with HLA B27 positive ankylosing spondylitis returns for follow-up. She states that the right knee Euflexxa series was quite helpful. She feels improved mobility and reduced stiffness and pain. Her joints are otherwise doing well. Lowering methotrexate to 4 tabs weekly did not make a difference. She remains on Enbrel 50 mg every 8 days. Today patient is depressed. She just found out a few months ago that her has been cheating on her for the last 25 years. She has a personal therapist and she is going through marriage counseling and she is not doing well overall. She is devastated. She has not eating and has lost at least 10 lb. Initial history: This is a 72-year-old female presents for evaluation of HLA B27 positive spondylitis as a new patient. 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 The condition started in 2006 and was initially diagnosed as PMR, symptoms appropriately responded to prednisone however once prednisone was tapered patient developed peripheral arthritis. In 2009 she was diagnosed as HLA B27 positive spondylitis. She was started on Enbrel with good response however she developed recurrent right knee effusion and methotrexate was added. She has been on Enbrel and methotrexate since 2010 with relatively good control of her symptoms. No history suggestive of uveitis or inflammatory bowel disease. Patient's main complaint today is right knee pain. Patient has had chronic right knee pain. She has had about 7 intra-articular cortisone injections in the past which provided some relief. Last injection was in June which gave her relief for 6-8 weeks. She has been going to physical therapy for her knee for 3 months during the fall without improvement. She has difficulty walking. She also was diagnosed with bilateral hip trochanteric bursitis and received steroid injections in the past which do provide some relief. 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 Systems Psych Reports depression Physical Exam Vital Signs: Last Vital Signs Temp 96.7 F L 09/30/23 09:58 BP 122/64 09/30/23 09:58 BMI result Body Mass Index 18.0 Const General: cooperative, healthy appearing, comfortable and no acute distress Nutritional Appearance: average body habitus Orientation/consciousness: patient oriented x3 Limitations: no limitations HEENT Head: Yes normocephalic and Yes atraumatic Resp Effort & Inspection: normal respiratory effort and able to speak in complete sentences Cardio Rate: regular rate Rhythm: regular rhythm Neuro General: patient oriented x3 Extrem Other: Osteoarthritic changes of both hands with prominent Priya's and Heberden's nodes Minimally stiff shoulders with full abduction Negative rotator cuff provocative maneuvers bilaterally Right knee valgus, more prominent with walking Equivocal Aaron's test on the right Bilateral knee crepitus worse on the right, right knee pain with full flexion No active synovitis Assessment & Plan Assessment & Plan (1) Ankylosing spondylitis: Comment: HLA B27 positive, diagnosed 2009 Enbrel started 2009 Methotrexate added 2010 Code(s): M45.9 - Ankylosing spondylitis of unspecified sites in spine Qualifiers: Ankylosing spondylitis location: unspecified site of spine Qualified Code(s): M45.9 - Ankylosing spondylitis of unspecified sites in spine Plan: This is a 73-year-old female who presents for evaluation of HLA B27 positive ankylosing spondylitis. She was initially diagnosed with PMR in 2006 and symptoms appropriately responded to steroids however she developed peripheral arthritis, she was then diagnosed as HLA B B27 positive ankylosing spondylitis and started on Enbrel, soon after methotrexate was added due to recurrent right knee effusion. Patient is in remission on methotrexate 10 mg weekly and Enbrel 50 mg every 8 days. Continue with methotrexate to 10 mg weekly, continue with Enbrel 50 mg every 8 days Safety labs in 3-4 months (2) Bilateral primary osteoarthritis of knee: Code(s): M17.0 - Bilateral primary osteoarthritis of knee Plan: Especially the right knee. Steroid injections became much less helpful. She completed Euflexxa series 06/23. Was quite helpful according to patient. Patient has a hiking trip in early November and she is worried about her right knee acting up. Patient will be coming back to clinic in about 6 weeks for right knee cortisone injection (3) On nursing home drug therapy: Code(s): Z79.899 - Other nursing home (current) drug therapy Plan: Patient is on methotrexate and Enbrel since 2010. She has not had any major side effects. Safety labs every 3-4 months (4) Latent tuberculosis by blood test: Code(s): Z22.7 - Latent tuberculosis Plan: Completed INH treatment back in 2009 (5) Stress and adjustment reaction: Code(s): F43.29 - Adjustment disorder with other symptoms Plan: Recently discovered 's infidelity. Patient is quite stressed, depressed, has lost appetite and lost 10 lb of weight. Has a grief counselor and is going to marriage counseling. Follow-up with PCP (6) Osteopenia with high risk of fracture: Code(s): M85.80 - Other specified disorders of bone density and structure, unspecified site Plan: DEXA 07/2023 showed osteopenia with high FRAX score. Patient needs antiresorptive therapy. Discussed nature of osteoporosis and different management strategies. Discussed risks and benefits of alendronate. Patient agreed to proceed. Start alendronate 70 mg once weekly Discussed avoiding falls, discussed vitamin D and calcium supplementation. Discussed weight-bearing exercise Check vitamin-D level today. Plan I spent 45 minutes reviewing patient's chart, evaluating patient, ordering diagnostic workup, counseling patient and documenting in the chart Orders: Orders Vitamin D 25-OH (D2 and D3) Today Z13.21 - Encounter for screening for nutritional disorder Complete Blood Count Auto Diff 4 Months Z79.899 - Other nursing home (current) drug therapy Erythrocyte Sedimentation Rate 4 Months Z79.899 - Other nursing home (current) drug therapy Comprehensive Met. Panel 4 Months Z79.899 - Other nursing home (current) drug therapy C Reactive Protein 4 Months Z79.899 - Other remote computer terminal operator (current) drug therapy Medications: New alendronate Take 1 tab once weekly, 1st thing in the morning, on an empty stomach, with a large glass of water (at least 6 oz) and stay upright for 30 minutes 70 mg PO QWEEK 12 tabs 1RF Changed From methotrexate sodium 12.5 mg (5 x 2.5 mg) PO QWEEK 60 tabs 1RF To methotrexate sodium 10 mg PO QWEEK Coding Level of Care Code Est Pt Level 5 (85587) Diagnoses Ankylosing spondylitis, unspecified site of spine M45.9 Ankylosing spondylitis location: unspecified site of spine Bilateral primary osteoarthritis of knee M17.0 On nursing home drug therapy Z79.899 Latent tuberculosis by blood test Z22.7 Stress and adjustment reaction F43.29 Osteopenia with high risk of fracture M85.80
== END 2023-09-30 10:31 | disposition home or self-care (01) ==
PROVIDERS: PCP Family Medicine; Visit Provider Student in an Organized Health Care Education/Training Program
DX: M45.9 Ankylosing spondylitis of unspecified sites in spine (principal); M17.0 Bilateral primary osteoarthritis of knee; Z79.899 Other long term (current) drug therapy; Z22.7 Latent tuberculosis; F43.29 Adjustment disorder with other symptoms; M85.80 Other specified disorders of bone density and structure, unspecified site
CPT/HCPCS: 99215

== ENCOUNTER 2023-09-30 09:52 | Outpatient (REF) | payer MEDICARE, SELFPAY ==
[2023-10-04 13:24] LABS: Vitamin D 25-OH, D2 <4 ng/mL; Vitamin D 25-OH, D3 50 ng/mL; Vitamin D 25-OH, Total 50 ng/mL (30-100)
== END 2023-09-30 09:53 | disposition home or self-care (01) ==
LOC: HO.LAB 09:52
PROVIDERS: PCP Family Medicine; Visit Provider Student in an Organized Health Care Education/Training Program
DX: M45.9 Ankylosing spondylitis of unspecified sites in spine (principal); M17.0 Bilateral primary osteoarthritis of knee; M85.80 Other specified disorders of bone density and structure, unspecified site; Z13.21 Encounter for screening for nutritional disorder; Z22.7 Latent tuberculosis; Z79.899 Other long term (current) drug therapy
CPT/HCPCS: 36415; 82306; 99212

== ENCOUNTER 2023-11-20 13:54 | Outpatient (AMB) | payer MEDICARE, SELFPAY ==
--- NOTE | 2023-11-20 13:59 | A.OFFVIS_ITS ---
Intake Vital Signs 11/20/23 14:00 Height 5 ft 7 in Weight 113 lb 5.082 oz BMI 17.7 BP 118/62 Blood Pressure Location Rt brachial Position Sitting Pulse 75 Pulse Source Pulse Oximeter Pulse Oximetry (%) 97 Oxygen Delivery Method Room Air Intake Visit Reasons: /CONFIRMED Intake Note: Patient last seen 09/30/23 presents today for follow up and test results. R knee pain, requesting cortisone injection. Dual Rate Dealer Required: No Accompanied by: Self / Same As Patient Allergies codeine Allergy (Intermediate, Verified 11/20/23 14:14) NAUSEA/VOMITING isoniazid Allergy (Intermediate, Verified 11/20/23 14:14) LFT ABNORMALITY Medication List - Last Reconciled 11/20/23 by Shirley New MD alendronate 70 mg PO QWEEK ascorbate calcium (vitamin C) 500 mg PO DAILY cholecalciferol (vitamin D3) 25 mcg PO BID etanercept (Enbrel SureClick) 50 mg subcut QWEEK folic acid 0.8 mg PO DAILY magnesium 500 mg PO DAILY methotrexate sodium 10 mg (4 x 2.5 mg) PO QWEEK omega 2-pbh-ihj-fish oil 1,000 mg (120 mg-180 mg) (Fish Oil) 1 cap PO BID sodium hyaluronate (viscosup) (Euflexxa) 20 mg (2 mL) intra-articular QWEEK 3 doses vitamins A,C,I-yeku-evdcwb 2,148 mcg-113 mg-45 mg-17.4mg (PreserVision AREDS) 2 tabs PO BID HPI HPI Comments History of Present Illness Details 73-year-old female with HLA B27 positive ankylosing spondylitis presents for right knee cortisone injection. She is going on a hiking trip to [place] in 2 weeks. She states that her right knee has been hurting recently. She has been working with couples therapy and individual therapy and feels that she is slowly improving. Initial history: This is a 72-year-old female presents for evaluation of HLA B27 positive spondylitis as a new patient. 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 The condition started in 2006 and was initially diagnosed as PMR, symptoms appropriately responded to prednisone however once prednisone was tapered patient developed peripheral arthritis. In 2009 she was diagnosed as HLA B27 positive spondylitis. She was started on Enbrel with good response however she developed recurrent right knee effusion and methotrexate was added. She has been on Enbrel and methotrexate since 2010 with relatively good control of her symptoms. No history suggestive of uveitis or inflammatory bowel disease. Patient's main complaint today is right knee pain. Patient has had chronic right knee pain. She has had about 7 intra-articular cortisone injections in the past which provided some relief. Last injection was in June which gave her relief for 6-8 weeks. She has been going to physical therapy for her knee for 3 months during the fall without improvement. She has difficulty walking. She also was diagnosed with bilateral hip trochanteric bursitis and received steroid injections in the past which do provide some relief. 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 [place] [facility] [place]ralgias Physical Exam Vital Signs: Last Vital Signs Pulse 75 11/20/23 14:00 BP 118/62 11/20/23 14:00 Pulse Ox 97 11/20/23 14:00 Oxygen Delivery Method Room Air 11/20/23 14:00 BMI result Body Mass Index 17.7 Const General: cooperative, healthy appearing, comfortable and no acute distress Nutritional Appearance: average body habitus Orientation/consciousness: patient oriented x3 Limitations: no limitations HEENT Head: Yes normocephalic and Yes atraumatic Resp Effort & Inspection: normal respiratory effort and able to speak in complete sentences Neuro General: patient oriented x3 Extrem Other: Osteoarthritic changes of both hands with prominent Priya's and Heberden's nodes Right knee valgus, more prominent with walking Bilateral knee crepitus worse on the right, right knee pain with full flexion No active synovitis Office Procedures Joint Injection/Drain Joint Injection/Drain Primary Site: right knee Prep: site was prepped using sterile technique and ethochloride spray was applied Injected: 40 mg of, Kenalog and other (2 mL of 1% lidocaine) Approach Used: medial parapatellar Procedure: The patient tolerated the procedure well Coding Details: With the patient's consent the right knee was prepped with ChloraPrep and alcohol. The skin was anesthetized with 2 cc of 1% lidocaine. The knee was then injected with 40 mg of triamcinolone and 2 cc of I % lidocaine. The patient tolerated the procedure with no immediate adverse effects. 30798 - Large joint Procedure code (CPT) selection complete Assessment & Plan Assessment & Plan (1) Bilateral primary osteoarthritis of knee: Code(s): M17.0 - Bilateral primary osteoarthritis of knee Plan: 73-year-old female with ankylosing spondylitis presents for right knee cortisone injection. Especially the right knee. Steroid injections became much less helpful. She completed Euflexxa series 06/23. Was quite helpful according to patient. She is now starting to have more knee pain on the right. She is going on a hiking trip to [place] in 2 weeks. Requesting an injection. With patient's consent, right knee was injected with Kenalog today. Follow-up in 2 months Plan I spent 15 minutes reviewing patient's chart, evaluating patient, ordering diagnostic workup, counseling patient and documenting in the chart Orders: Orders AMB Joint Injection/Aspiration Today M17.11 - Unilateral primary osteoarthritis, right knee Medications: New methotrexate sodium 10 mg (4 x 2.5 mg) PO QWEEK 44 tabs 0RF Coding Level of Care Code Est Pt Level 3 (04856) Diagnoses Bilateral primary osteoarthritis of knee M17.0 CPT Codes Coding - 44691 Large joint: 54426 - Large joint ([id number])
[2023-11-20 14:00] VITALS: BP 118/62; PULSE 75; O2SAT 97; BMI 17.7
== END 2023-11-20 14:38 | disposition home or self-care (01) ==
PROVIDERS: PCP Family Medicine; Visit Provider Student in an Organized Health Care Education/Training Program
DX: M17.0 Bilateral primary osteoarthritis of knee (principal)
CPT/HCPCS: 20610; 99213

== ENCOUNTER → 2023-11-20 13:54 | Outpatient (BNVA) | payer MEDICARE, SELFPAY | PROVIDERS: PCP Family Medicine; Visit Provider Student in an Organized Health Care Education/Training Program | DX: M17.0 Bilateral primary osteoarthritis of knee (principal) | CPT/HCPCS: 20610; 99212 ==

== ENCOUNTER 2024-01-19 10:30 | Outpatient (REF) | payer MEDICARE, SELFPAY ==
[2024-01-19 11:12] LABS: MANUAL DIFF FLAG NO
[2024-01-19 11:19] LABS: Basophils Absolute Auto 0.1 X10*3/uL (0.0-0.2); Basophils Percent Auto 1.4 % (0-2); Eosinophils Absolute Auto 0.1 X10*3/uL (0.0-0.4); Eosinophils Percent Auto 2.2 % (0-4); Hematocrit 36.6 % (37.0-47.0); Hemoglobin 12.2 g/dl (12.0-16.0); Lymphocytes Absolute Auto 1.6 X10*3/uL (1.2-4.9); Lymphocytes Percent Auto 45.2 % (20-40); Mean Corpuscular HGB Conc 33.3 g/dl (31.0-35.0); Mean Corpuscular Hemoglobin 32.4 pg (27.0-33.0); Mean Corpuscular Volume 97.1 fL (80.0-98.0); Mean Platelet Volume 10.8 fL (9.4-12.3); Monocytes Absolute Auto 0.4 X10*3/uL (0.1-1.2); Monocytes Percent Auto 10.2 % (2-11); Neutrophils Absolute Auto 1.5 x10*3/uL (2.0-8.3); Platelet Count 239 X10*3/uL (160-400); Red Blood Count 3.77 X10*6/uL (4.20-5.50); Red Cell Distribution Width 13.9 % (11.0-16.0); White Blood Count 3.6 X10*3/uL (4.8-10.8)
[2024-01-19 11:37] LABS: Alanine Aminotransferase 15 U/L (0-31); Albumin Level 4.2 g/dL (3.5-5.0); Alkaline Phosphatase 56 U/L (39-117); Anion Gap 13 (12-20); Aspartate Amino Transferase 19 U/L (5-31); Bilirubin Total 0.5 mg/dL (0.0-1.0); Blood Urea Nitrogen 18 mg/dL (9-16); C Reactive Protein 0.33 mg/dL (< or = 0.50); Calcium 9.3 mg/dL (8.4-10.2); Carbon Dioxide 28 mmol/L (22-29); Chloride 104 mmol/L (96-108); Estimated Glomerular Filt Rate > 60; Glucose Random 81 mg/dL (60-115); Sodium 141 mmol/L (135-145); Total Protein 6.9 g/dL (6.5-8.0)
[2024-01-19 11:55] LABS: Erythrocyte Sedimentation Rate 5 MM/HR (0-20)
== END 2024-01-19 10:31 | disposition home or self-care (01) ==
LOC: HO.10HDL 10:30
PROVIDERS: Visit Provider Student in an Organized Health Care Education/Training Program
DX: Z79.899 Other long term (current) drug therapy (principal)
CPT/HCPCS: 36415; 80053; 85025; 85652; 86140

== ENCOUNTER 2024-01-22 14:54 | Outpatient (AMB) | payer MEDICARE, SELFPAY ==
--- NOTE | 2024-01-22 14:58 | MHC.OFFVIS ---
Vital Signs 01/22/24 15:05 Height 5 ft 7 in Weight 116 lb 6.465 oz BMI 18.2 BP 110/70 Blood Pressure Location Rt brachial Position Sitting Pulse 77 Pulse Oximetry (%) 97 Intake Visit Reasons: Intake Note: Patient last seen 11/20/23 presents today for follow up and test results. Allergies codeine Allergy (Intermediate, Verified 01/22/24 15:00) NAUSEA/VOMITING isoniazid Allergy (Intermediate, Verified 01/22/24 15:00) LFT ABNORMALITY Medication List - Last Reconciled 01/22/24 by Shirley New MD alendronate 70 mg PO QWEEK ascorbate calcium (vitamin C) 500 mg PO DAILY cholecalciferol (vitamin D3) 25 mcg PO BID etanercept (Enbrel SureClick) 50 mg subcut QWEEK folic acid 0.8 mg PO DAILY magnesium 500 mg PO DAILY methotrexate sodium 10 mg (4 x 2.5 mg) PO QWEEK omega 0-drn-bug-fish oil 1,000 mg (120 mg-180 mg) (Fish Oil) 1 cap PO BID sertraline 100 mg PO DAILY sodium hyaluronate (viscosup) (Euflexxa) 20 mg (2 mL) intra-articular QWEEK 3 doses vitamins A,C,L-xdyf-vrudta 2,148 mcg-113 mg-45 mg-17.4mg (PreserVision AREDS) 2 tabs PO BID HPI Comments Details: 73-year-old female with HLA B27 positive ankylosing spondylitis presents for follow-up. She is on methotrexate 4 tabs weekly, Enbrel 50 mg Q 8 days. She is doing quite well overall. She recently went on a trip to [place] and enjoyed it. She was able to hike and bike without any knee problems. Believes the knee injection done last visit was helpful. She was recently started on sertraline for [place] and believes it is quite helpful. She received another COVID booster recently. She has no complaints today. Initial history: This is a 72-year-old female presents for evaluation of HLA B27 positive spondylitis as a new patient. 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 The condition started in 2006 and was initially diagnosed as PMR, symptoms appropriately responded to prednisone however once prednisone was tapered patient developed peripheral arthritis. In 2009 she was diagnosed as HLA B27 positive spondylitis. She was started on Enbrel with good response however she developed recurrent right knee effusion and methotrexate was added. She has been on Enbrel and methotrexate since 2010 with relatively good control of her symptoms. No history suggestive of uveitis or inflammatory bowel disease. Patient's main complaint today is right knee pain. Patient has had chronic right knee pain. She has had about 7 intra-articular cortisone injections in the past which provided some relief. Last injection was in June which gave her relief for 6-8 weeks. She has been going to physical therapy for her knee for 3 months during the fall without improvement. She has difficulty walking. She also was diagnosed with bilateral hip trochanteric bursitis and received steroid injections in the past which do provide some relief. 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 Female Reproductive History Menstrual Total pregnancies: 3 Number of Living Children: 2 Ab induced: 1 Review of Systems Musc Details: Limited range of motion of right knee Denies arthralgias, Denies joint swelling and Reports limited range of motion Physical Exam Vital Signs: Last Vital Signs Pulse 77 01/22/24 15:05 BP 110/70 01/22/24 15:05 Pulse Ox 97 01/22/24 15:05 BMI result Body Mass Index 18.2 Const General: cooperative, healthy appearing, comfortable and no acute distress Nutritional Appearance: average body habitus Orientation/consciousness: patient oriented x3 Limitations: no limitations HEENT Head: Yes normocephalic and Yes atraumatic Resp Effort & Inspection: normal respiratory effort and able to speak in complete sentences Neuro General: patient oriented x3 Extrem Other: Osteoarthritic changes of both hands with prominent Priya's and Heberden's nodes Right knee valgus, more prominent with walking Bilateral knee crepitus worse on the right, right knee pain with full flexion Patient can not fully extend her right knee. No active synovitis Assessment & Plan Assessment & Plan (1) Ankylosing spondylitis: Comment: HLA B27 positive, diagnosed 2009 Enbrel started 2009 Methotrexate added 2010 Code(s): M45.9 - Ankylosing spondylitis of unspecified sites in spine Category: Medical Qualifiers: Ankylosing spondylitis location: unspecified site of spine Qualified Code(s): M45.9 - Ankylosing spondylitis of unspecified sites in spine Plan: This is a 73-year-old female who presents for follow-up of HLA B27 positive ankylosing spondylitis. She was initially diagnosed with PMR in 2006 and symptoms appropriately responded to steroids however she developed peripheral arthritis, she was then diagnosed as HLA B B27 positive ankylosing spondylitis and started on Enbrel, soon after methotrexate was added due to recurrent right knee effusion. Patient is in remission on methotrexate 10 mg weekly and Enbrel 50 mg every 8 days. Continue with methotrexate to 10 mg weekly, continue with Enbrel 50 mg every 8 days Safety labs in 4 months (2) Bilateral primary osteoarthritis of knee: Code(s): M17.0 - Bilateral primary osteoarthritis of knee Category: Medical Plan: Especially the right knee. Steroid injections became much less helpful. She completed Euflexxa series 06/23. Was quite helpful according to patient. She received a steroid injection 10/2023 in preparation for a hiking trip in [place]. Her knee is doing quite well currently. Euflexxa series can be repeated in the future p.r.n. 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 She has not had any major side effects. Safety labs every 3-4 months (4) Latent tuberculosis by blood test: Code(s): Z22.7 - Latent tuberculosis Category: Medical Plan: Completed INH treatment back in 2009 (5) Stress and adjustment reaction: Code(s): F43.29 - Adjustment disorder with other symptoms Category: Medical Plan: Improved with sertraline prescribed by PCP (6) Osteopenia with high risk of fracture: Code(s): M85.80 - Other specified disorders of bone density and structure, unspecified site Category: Medical Plan: DEXA 07/2023 showed osteopenia with high FRAX score. On alendronate 70 mg weekly. Well-tolerated. Also on calcium and vitamin-D. Vitamin-D level at target. Continue current dose of vitamin-D (7) Trochanteric bursitis of both hips: Code(s): M70.61 - Trochanteric bursitis, right hip; M70.62 - Trochanteric bursitis, left hip Category: Medical Plan: Not significantly symptomatic today. She has received steroid injections in the past with some relief. I provided patient with a printout of home exercises Plan I spent 45 minutes reviewing patient's chart, evaluating patient, ordering diagnostic workup, counseling patient and documenting in the chart Orders: Orders Erythrocyte Sedimentation Rate 4 Months M45.9 - Ankylosing spondylitis of unspecified sites in spine Complete Blood Count Auto Diff 4 Months M45.9 - Ankylosing spondylitis of unspecified sites in spine Comprehensive Met. Panel 4 Months M45.9 - Ankylosing spondylitis of unspecified sites in spine C Reactive Protein 4 Months M45.9 - Ankylosing spondylitis of unspecified sites in spine Coding Level of Care Code Est Pt Level 5 (02916) Complex EM visit Add On G2211 Diagnoses Ankylosing spondylitis, unspecified site of spine M45.9 Ankylosing spondylitis location: unspecified site of spine Bilateral primary osteoarthritis of knee M17.0 On nursing home drug therapy Z79.899 Latent tuberculosis by blood test Z22.7 Stress and adjustment reaction F43.29 Osteopenia with high risk of fracture M85.80 Trochanteric bursitis of both hips M70.61; M70.62
[2024-01-22 15:05] VITALS: BP 110/70; PULSE 77; O2SAT 97; BMI 18.2
== END 2024-01-22 15:36 | disposition home or self-care (01) ==
PROVIDERS: PCP Family Medicine; Visit Provider Student in an Organized Health Care Education/Training Program
DX: M45.9 Ankylosing spondylitis of unspecified sites in spine (principal); M17.0 Bilateral primary osteoarthritis of knee; Z79.899 Other long term (current) drug therapy; Z22.7 Latent tuberculosis; F43.29 Adjustment disorder with other symptoms; M85.80 Other specified disorders of bone density and structure, unspecified site; M70.61 Trochanteric bursitis, right hip; M70.62 Trochanteric bursitis, left hip
CPT/HCPCS: 99214; G2211

== ENCOUNTER → 2024-01-22 14:54 | Outpatient (BNVA) | payer MEDICARE, SELFPAY | PROVIDERS: PCP Family Medicine; Visit Provider Student in an Organized Health Care Education/Training Program | DX: M45.9 Ankylosing spondylitis of unspecified sites in spine (principal); M17.0 Bilateral primary osteoarthritis of knee; M70.62 Trochanteric bursitis, left hip; M70.61 Trochanteric bursitis, right hip; M85.80 Other specified disorders of bone density and structure, unspecified site; F43.29 Adjustment disorder with other symptoms; Z22.7 Latent tuberculosis; Z79.631 Long term (current) use of antimetabolite agent | CPT/HCPCS: 99212 ==

== ENCOUNTER 2024-05-17 10:16 | Outpatient (REF) | payer MEDICARE, SELFPAY ==
[2024-05-17 13:18] LABS: MANUAL DIFF FLAG NO
[2024-05-17 13:27] LABS: Basophils Absolute Auto 0.1 X10*3/uL (0.0-0.2); Basophils Percent Auto 1.5 % (0-2); Eosinophils Absolute Auto 0.1 X10*3/uL (0.0-0.4); Eosinophils Percent Auto 3.2 % (0-4); Hematocrit 37.9 % (37.0-47.0); Hemoglobin 12.6 g/dl (12.0-16.0); Lymphocytes Absolute Auto 1.7 X10*3/uL (1.2-4.9); Lymphocytes Percent Auto 42.8 % (20-40); Mean Corpuscular HGB Conc 33.2 g/dl (31.0-35.0); Mean Corpuscular Volume 93.3 fL (80.0-98.0); Mean Platelet Volume 10.9 fL (9.4-12.3); Monocytes Absolute Auto 0.4 X10*3/uL (0.1-1.2); Monocytes Percent Auto 9.5 % (2-11); Neutrophils Absolute Auto 1.7 x10*3/uL (2.0-8.3); Platelet Count 238 X10*3/uL (160-400); Red Blood Count 4.06 X10*6/uL (4.20-5.50); Red Cell Distribution Width 14.2 % (11.0-16.0)
[2024-05-17 13:39] LABS: Alanine Aminotransferase 18 U/L (0-31); Albumin Level 4.2 g/dL (3.5-5.0); Alkaline Phosphatase 63 U/L (39-117); Anion Gap 13 (12-20); Aspartate Amino Transferase 21 U/L (5-31); Bilirubin Total 0.6 mg/dL (0.0-1.0); Blood Urea Nitrogen 18 mg/dL (9-16); C Reactive Protein < 0.10 mg/dL (< or = 0.50); Calcium 9.4 mg/dL (8.4-10.2); Carbon Dioxide 31 mmol/L (22-29); Chloride 104 mmol/L (96-108); Estimated Glomerular Filt Rate > 60; Glucose Random 93 mg/dL (60-115); Potassium 3.9 mmol/L (3.3-5.1); Sodium 144 mmol/L (135-145); Total Protein 7.1 g/dL (6.5-8.0)
[2024-05-17 14:08] LABS: Erythrocyte Sedimentation Rate 4 MM/HR (0-20)
== END 2024-05-17 10:17 | disposition home or self-care (01) ==
LOC: HO.10HDL 10:16
PROVIDERS: PCP Family Medicine; Visit Provider Student in an Organized Health Care Education/Training Program
DX: M45.9 Ankylosing spondylitis of unspecified sites in spine (principal)
CPT/HCPCS: 36415; 80053; 85025; 85652; 86140

== ENCOUNTER 2024-05-24 09:50 | Outpatient (AMB) | payer MEDICARE, SELFPAY ==
[2024-05-24 10:09] VITALS: BP 108/58; PULSE 65; O2SAT 98; BMI 19.0
--- NOTE | 2024-05-24 10:09 | A.OFFVIS_ITS ---
Vital Signs 05/24/24 10:09 Height 5 ft 7 in Weight 121 lb 0.54 oz BMI 19.0 BP 108/58 L Blood Pressure Location Lt brachial Position Sitting Pulse 65 Pulse Source Pulse Oximeter Pulse Oximetry (%) 98 Oxygen Delivery Method Room Air Intake Visit Reasons: Intake Note: Patient last seen by Doctor Shirley New on 01/22/24. Patient presents today for follow up and test results.?Patient also c/o left foot pain and skin condition associated with it for 2 months. Patient would like refill of Methotrexate today. Allergies codeine Allergy (Intermediate, Verified 01/22/24 15:00) NAUSEA/VOMITING isoniazid Allergy (Intermediate, Verified 01/22/24 15:00) LFT ABNORMALITY cephalexin Allergy (Mild, Verified 05/24/24 10:12) Hives Medication List - Last Reconciled 05/24/24 by Shirley New MD alendronate 70 mg PO QWEEK ascorbate calcium (vitamin C) 500 mg PO DAILY cholecalciferol (vitamin D3) 25 mcg PO BID etanercept (Enbrel SureClick) 50 mg subcut QWEEK folic acid 0.8 mg PO DAILY magnesium 500 mg PO DAILY methotrexate sodium 10 mg (4 x 2.5 mg) PO QWEEK omega 5-wqb-zcf-fish oil 1,000 mg (120 mg-180 mg) (Fish Oil) 1 cap PO BID sertraline 150 mg PO DAILY sodium hyaluronate (viscosup) (Euflexxa) 20 mg (2 mL) intra-articular QWEEK 3 doses vitamins A,C,N-kpft-rswsax 2,148 mcg-113 mg-45 mg-17.4mg (PreserVision AREDS) 2 tabs PO BID HPI Comments Details: 73-year-old female with HLA B27 positive ankylosing spondylitis presents for follow-up. She is on methotrexate 4 tabs weekly, Enbrel 50 mg Q 8 days. She is doing quite well overall except for her right knee osteoarthritis. She states that her right knee has become worse. She walks with her right knee semi-flexed. She has noticed some hardening and thickened skin in the bottom of the left foot. She is scheduled to see an orthopedist in 2 weeks. She has not had any major illnesses recently. Initial history: This is a 72-year-old female presents for evaluation of HLA B27 positive spondylitis as a new patient. 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 The condition started in 2006 and was initially diagnosed as PMR, symptoms appropriately responded to prednisone however once prednisone was tapered patient developed peripheral arthritis. In 2009 she was diagnosed as HLA B27 positive spondylitis. She was started on Enbrel with good response however she developed recurrent right knee effusion and methotrexate was added. She has been on Enbrel and methotrexate since 2010 with relatively good control of her symptoms. No history suggestive of uveitis or inflammatory bowel disease. Patient's main complaint today is right knee pain. Patient has had chronic right knee pain. She has had about 7 intra-articular cortisone injections in the past which provided some relief. Last injection was in June which gave her relief for 6-8 weeks. She has been going to physical therapy for her knee for 3 months during the fall without improvement. She has difficulty walking. She also was diagnosed with bilateral hip trochanteric bursitis and received steroid injections in the past which do provide some relief. [facility] Medical History On [facility] drug therapy Urge incontinence Sleep disorder Ankylosing spondylitis DJD (degenerative joint disease) Constipation GERD (gastroesophageal reflux disease) Allergic rhinitis IBS (irritable bowel syndrome) Surgical History No history of previous surgery Family History Mother Diabetes CVA (cerebral vascular accident) Arthritis Father Dementia Rheumatoid arthritis Maternal Grandmother Colon cancer Paternal Grandfather Heart disease Paternal Grandmother No problems noted. 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 Female Reproductive History Menstrual Total pregnancies: 3 Number of Living Children: 2 Ab induced: 1 Review of Systems Musc Details: Limited range of motion of right knee Reports arthralgias, Denies joint swelling, Reports limited range of motion and Reports stiffness Physical Exam Vital Signs: Last Vital Signs Pulse 65 05/24/24 10:09 BP 108/58 L 05/24/24 10:09 Pulse Ox 98 05/24/24 10:09 Oxygen Delivery Method Room Air 05/24/24 10:09 BMI result Body Mass Index 19.0 Const General: cooperative, healthy appearing, comfortable and no acute distress Nutritional Appearance: average body habitus Orientation/consciousness: patient oriented x3 Limitations: no limitations HEENT Head: Yes normocephalic and Yes atraumatic Resp Effort & Inspection: normal respiratory effort and able to speak in complete sentences Neuro General: patient oriented x3 Extrem Other: Osteoarthritic changes of both hands with prominent Priya's and Heberden's nodes Right knee valgus, more prominent with walking Bilateral knee crepitus worse on the right, right knee pain with full flexion Patient can not fully extend her right knee. No active synovitis Assessment & Plan Assessment & Plan (1) Ankylosing spondylitis: Comment: HLA B27 positive, diagnosed 2009 Enbrel started 2009 Methotrexate added 2010 Code(s): M45.9 - Ankylosing spondylitis of unspecified sites in spine Category: Medical Qualifiers: Ankylosing spondylitis location: unspecified site of spine Qualified Code(s): M45.9 - Ankylosing spondylitis of unspecified sites in spine Plan: This is a 73-year-old female who presents for follow-up of HLA B27 positive ankylosing spondylitis. She was initially diagnosed with PMR in 2006 and symptoms appropriately responded to steroids however she developed peripheral arthritis, she was then diagnosed as HLA B B27 positive ankylosing spondylitis and started on Enbrel, soon after methotrexate was added due to recurrent right knee effusion. Patient is in remission on methotrexate 10 mg weekly and Enbrel 50 mg every 8 days. Advised patient to try lowering her methotrexate to 7.5 mg weekly. continue with Enbrel 50 mg every 8 days Safety labs in 4 months (2) Bilateral primary osteoarthritis of knee: Code(s): M17.0 - Bilateral primary osteoarthritis of knee Category: Medical Plan: Especially the right knee. Steroid injections became much less helpful. She completed Euflexxa series 06/23. Was quite helpful according to patient. She received a steroid injection 10/2023 in preparation for a hiking trip in [place]. Her right knee has become progressively worse and she was referred to see an orthopedist to discuss knee replacement (3) [facility]: Code(s): Z79.899 - Other [facility] drug [facility] Category: Medical Plan: Patient is on methotrexate and Enbrel since 2010. She has not had any major side effects. Safety labs every 3-4 months (4) Latent tuberculosis by blood test: Code(s): Z22.7 - Latent tuberculosis Category: Medical Plan: Completed INH treatment back in 2009 (5) Stress and adjustment reaction: Code(s): F43.29 - Adjustment disorder with other symptoms Category: Medical Plan: Improved with sertraline prescribed by PCP (6) Osteopenia with high risk of fracture: Code(s): M85.80 - Other specified disorders of bone density and structure, unspecified site Category: Medical Plan: DEXA 07/2023 showed osteopenia with high FRAX score. On alendronate 70 mg weekly. Well-tolerated. Also on calcium and vitamin-D. Continue current dose of vitamin-D (7) Trochanteric bursitis of both hips: Code(s): M70.61 - Trochanteric bursitis, right hip; M70.62 - Trochanteric bursitis, left hip Category: Medical Plan: Improved with home exercises Plan I spent 35 minutes reviewing patient's chart, evaluating patient, ordering diagnostic workup, counseling patient and documenting in the chart Orders: Orders Complete Blood Count Auto Diff 4 Months M45.9 - Ankylosing spondylitis of unspecified sites in spine, Z79.899 - Other [facility] (current) drug therapy Comprehensive Met. Panel 4 Months M45.9 - Ankylosing spondylitis of unspecified sites in spine, Z79.899 - Other [facility] (current) drug therapy C Reactive Protein 4 Months M45.9 - Ankylosing spondylitis of unspecified sites in spine, Z79.899 - Other [facility] (current) drug therapy Erythrocyte Sedimentation Rate 4 Months M45.9 - Ankylosing spondylitis of unspecified sites in spine, Z79.899 - Other [facility] (current) drug therapy Medications: Refilled methotrexate sodium 10 mg (4 x 2.5 mg) PO QWEEK 64 tabs 1RF Coding Level of Care Code Est Pt Level 5 (18247) Diagnoses Ankylosing spondylitis, unspecified site of spine M45.9 Ankylosing spondylitis location: unspecified site of spine Bilateral primary osteoarthritis of knee M17.0 [facility] Z79.899 Latent tuberculosis by blood test Z22.7 Stress and adjustment reaction F43.29 Osteopenia with high risk of fracture M85.80 Trochanteric bursitis of both hips M70.61; M70.62
== END 2024-05-24 10:42 | disposition home or self-care (01) ==
PROVIDERS: PCP Family Medicine; Visit Provider Student in an Organized Health Care Education/Training Program
DX: M45.9 Ankylosing spondylitis of unspecified sites in spine (principal); M17.0 Bilateral primary osteoarthritis of knee; Z79.899 Other long term (current) drug therapy; Z22.7 Latent tuberculosis; F43.29 Adjustment disorder with other symptoms; M85.80 Other specified disorders of bone density and structure, unspecified site; M70.61 Trochanteric bursitis, right hip; M70.62 Trochanteric bursitis, left hip
CPT/HCPCS: 99214

== ENCOUNTER → 2024-05-24 09:50 | Outpatient (BNVA) | payer MEDICARE, SELFPAY | PROVIDERS: PCP Family Medicine; Visit Provider Student in an Organized Health Care Education/Training Program | DX: M45.9 Ankylosing spondylitis of unspecified sites in spine (principal); M17.0 Bilateral primary osteoarthritis of knee; F43.29 Adjustment disorder with other symptoms; M85.80 Other specified disorders of bone density and structure, unspecified site; M70.61 Trochanteric bursitis, right hip; M70.62 Trochanteric bursitis, left hip; Z22.7 Latent tuberculosis; Z79.899 Other long term (current) drug therapy | CPT/HCPCS: 99212 ==

== ENCOUNTER 2024-09-21 11:28 | Outpatient (REF) | payer MEDICARE, SELFPAY ==
[2024-09-21 13:04] LABS: MANUAL DIFF FLAG NO
[2024-09-21 13:08] LABS: Basophils Absolute Auto 0.1 X10*3/uL (0.0-0.2); Eosinophils Absolute Auto 0.1 X10*3/uL (0.0-0.4); Eosinophils Percent Auto 1.7 % (0-4); Hematocrit 37.3 % (37.0-47.0); Hemoglobin 12.3 g/dl (12.0-16.0); Imm Gran Abs Auto 0.01 X10*3/uL (0.00-0.03); Imm Gran Pct Auto 0.2 % (0.0-0.4); Lymphocytes Absolute Auto 2.2 X10*3/uL (1.2-4.9); Lymphocytes Percent Auto 43.1 % (20-40); Mean Corpuscular Hemoglobin 31.4 pg (27.0-33.0); Mean Corpuscular Volume 95.2 fL (80.0-98.0); Mean Platelet Volume 10.5 fL (9.4-12.3); Monocytes Absolute Auto 0.4 X10*3/uL (0.1-1.2); Monocytes Percent Auto 8.3 % (2-11); Neutrophils Absolute Auto 2.4 x10*3/uL (2.0-8.3); Neutrophils Percent Auto 45.7 % (45-73); Platelet Count 232 X10*3/uL (160-400); Red Blood Count 3.92 X10*6/uL (4.20-5.50); White Blood Count 5.2 X10*3/uL (4.8-10.8)
--- OUTSIDE RECORDS SUMMARY | 2024-09-21 13:15 | XMS_ITS | Data Portability ---
Author Organization [facility], [facility] Address [address] [place] [address] Care Team Providers Care Assistant Signal Maintainer Name Role Phone JACQUELINE CONNOLLY Landscape Management Technician MUMTAZ ESPINO Sensitizer [phone] MIKI BURGOS Medicaid Plan Compliance Director MARY VIRAMONTES Body Art Technician [facility] Landscape Management Technician OKSANA ADORNO Landscape Management Technician MANUEL BENSON Primary Care Provider Assessment Encounter Date Assessment Date Assessment LastModified by Organization Details LastModified Time 06/07/2024 06/07/2024 We completed you r Medicare Wellness exam today. This was an opportunity to assess your overall well being including your ability to care for yourself, your mobility, memory, mental health, as well as your safety. With advancing age, it is important to assign someone in your life as your Health Care Proxy (HCP). This person should know what is important to you and what your wishes are for medical procedures if you cannot communicate your wishes yourself (severe illness, unconsciousness). We discussed having a completed Health Care Proxy form today. In addition, today we started a conversation about your End of Life wishes. These conversations will continue over the years. Please consider reading the book, Being Mortal by Shaun Urbano to help frame future conversations. We discussed the purpose of a MOLST form (Medical Orders for Life Sustaining Treatment) and completed this form if appropriate per your wishes. Vision and Hearing are senses that are critically important as we age. When impaired, they can contribute to memory loss, falls, and make it harder to drive, talk to family and friends, and engage in the world. Please get your vision checked yearly and your hearing checked when you start to notice hearing loss. We discussed approaches to lowering your risk of heart disease and stroke . Your blood pressure is at goal. Your cholesterol is at goal. We discussed cancer screening you may need as well as vaccines to prevent infections. Colon Cancer : Your risk of colon cancer is higher than average due to family history. Due for colorectal screenin. If you are not planning to have a colonoscopy please screen with stool cards yearly. Breast Cancer : Breast Cancer Screening (mammography). Next mammogram due: 2024. Cervical Cancer Screening (pap test). Next pap due: . Prostate Cancer : PSA testing for ages 55-69 risks and benefits discussed . Influenza Vaccine : Flu shot yearly. Tetanus Vaccine : Every 10 years. Due: 2031. The following vaccines are available from your pharmacy: Pneumonia Vaccine : PCV20: once after age 65. Shingles Vaccine : 2 shots after age 50. Covid Vaccine : Make sure you have received the most up to date covid vaccine. Your personal health goal for the year is: [email or web address] Not available 06/07/2024 11:25:05 06/15/2024 06/15/2024 The patient presents with a tick bite noticed this morning after a hike yesterday. She describes the tick as 'very firmly attached' and located under her hair. Despite attempts at home removal with a tick extractor and tweezers, the tick remains attached. She denies fevers and headaches. The patient has a history of ankylosing spondylitis and is on immunosuppressive medication. She has previously used prophylactic doxycycline for tick bites but currently does not have any at home. [email or web address] Not available 06/16/2024 07:57:32 Plan of Treatment Reminders Order Date Submit Date Provider Last Modified By Organization Details Last Modified Time Details Appointments Wellness Visit 30 2024 02:30P CAMILA Joshua Not available Not available Not available Lab rapid strep group A, throat 2023 024 [email or web address] 2 [facility], [address] [facility], [place], [address], 02/07/2024 08:01:33 lipid panel, serum 10/07/ 2024 10/07/2 024 [facility], [address] [facility], [place], [address], 06/08/2024 14:45:07 Referral None recorded. Procedures None recorded. Surgeries None recorded. Imaging None recorded. Medication Orders sertralin e 100 mg tablet 2023 RONEN Maral [address] ([facility]), [address] [place], [place], [id number], 01/01/2024 09:58:14 cephalexi n 500 mg capsule 2023 [place] [address] ([place] [address]), [address] [place], [place], [id number], 06/07/2024 10:04:43 polymyxin B sulfate 10,000 unit-trim ethoprim 1 mg/mL [facility] [address] ([facility] [address] [place], [place], [id number], 06/07/2024 10:05:31 doxycycli ne hyclate 100 mg tablet 2023 CAMERON MILLS [facility] [address] ([facility]), [address] [place], [place], [id number], 06/15/2024 09:41:43 Patient TargetsNo targets recorded. Patient Instructions Encounter Date Encounter Id Patient Instructions Last Modified By Organization Details Last Modified Time 06/15/2024 [id number] Discussed cain martínez knowledge of tick-related illness. Given no symptoms of systemic illness, we will treat with doxycycline 200mg prophylactically. Patient instructed to monitor for any new rash, fevers, headaches, or body aches for the next 6 weeks. Contact [facility] with any concerns. Discussed sensitivity to sun with doxycycline. [email or web address] Not available 06/15/2024 09:20:13 Reason for Referral None Reported. Results Created Date Observation Date Name Description Value Unit Range Abnormal Flag Note LastModifiedBy Organization Detail LastModifiedTime 02/06/20 24 02/06/2024 POCST REP strep A POC POSITI VE positive Not Available [facility] [address] [place] [address], [address], 02/06/2024 14:20:09 06/07/20 24 06/07/2024 CBC WBC 5.69 K/? ? ?L 3.98-1 0.04 Not Available [address], [address], 06/07/2024 12:25:36 06/07/20 24 06/07/2024 CBC RBC 4.27 M/? ? ?L 3.93-5 .22 Not Available [address], [address], 06/07/2024 12:25:36 06/07/20 24 06/07/2024 CBC HGB 12.9 g/dL 11.2-1 5.7 Not Available [address], [address], 06/07/2024 12:25:36 06/07/20 24 06/07/2024 CBC HCT 40.0 % 34.1-4 4.9 Not Available [address], [address], 06/07/2024 12:25:36 06/07/20 24 06/07/2024 CBC MCV 93.7 fL 79.4-9 4.8 Not Available [address], [address], 06/07/2024 12:25:36 06/07/20 24 06/07/2024 CBC MCH 30.2 pg 25.6-3 2.2 Not Available [address], [address], 06/07/2024 12:25:36 06/07/20 24 06/07/2024 CBC MCHC 32.3 g/dL 32.2-3 5.5 Not Available [address] [place], [address], 06/07/2024 12:25:36 06/07/2006/07/2024 CBC plt 258 K/? ? ?L 182-36 9 Not Available [address], [address], 06/07/2024 12:25:36 06/07/2006/07/2024 CBC MPV 11.1 fL 9.4-12 .3 Not Available [address], [address], 06/07/2024 12:25:36 06/07/2006/07/2024 CBC neut% 56.9 % 34.0-7 1.1 Not Available [address], [address], 06/07/2024 12:25:36 06/07/2006/07/2024 CBC neut# 3.24 1.56-6 .13 Not Available [address], [address], 06/07/2024 12:25:36 06/07/2006/07/2024 CBC lymph % 32.0 % 19.3-5 1.7 Not Available [address], [address], 06/07/2024 12:25:36 06/07/2006/07/2024 CBC lymph # 1.82 K/? ? ?L 1.18-3 .74 Not Available [address], [address], 06/07/2024 12:25:36 06/07/2006/07/2024 CBC mono% 8.4 % 4.7-12 .5 Not Available [address], [address], 06/07/2024 12:25:36 06/07/2006/07/2024 CBC mono# 0.48 0.24-0 .56 Not Available [address], [address], 06/07/2024 12:25:36 06/07/20 24 06/07/2024 CBC eo% 1.6 % 0.7-5. 8 Not Available [address], [address], 06/07/2024 12:25:36 06/07/20 24 06/07/2024 CBC eo# 0.09 0.04-0 .36 Not Available [address], [address], 06/07/2024 12:25:36 06/07/20 24 06/07/2024 CBC baso% 0.7 % 0.1-1. 2 Not Available [address], [address], 06/07/2024 12:25:36 06/07/20 24 06/07/2024 CBC baso# 0.04 0.00-0 .08 Not Available [address], [address], 06/07/2024 12:25:36 06/07/20 24 06/07/2024 CBC RDW-CV 14.1 % 11.7-1 4.4 Not Available [address], [address], 06/07/2024 12:25:36 06/07/20 24 06/07/2024 CBC Ig% 0.400 % 0.000- 1.500 Ig % >0.5 Indic ates possi ble Left Shift Not Available [address], [address], 06/07/2024 12:25:36 06/07/20 24 06/07/2024 CBC Ig# 0.020 0.000- 0.093 Not Available [address], [address], 06/07/2024 12:25:36 06/07/20 24 06/07/2024 CBC NRBC% 0.0 % 0.0-0. 2 Not Available [address], [address], 06/07/2024 12:25:36 06/07/20 24 06/07/2024 CBC NRBC# 0.000 0.000- 0.012 Not Available [address], [address], 06/07/2024 12:25:36 06/07/20 24 06/08/2024 COMP. METAB OLIC PANEL glucose 90 mg/dL 70-100 Not Available [address], [address], 06/08/2024 14:45:06 06/07/20 24 06/08/2024 COMP. METAB OLIC PANEL BUN 15 mg/dL 7-18 Not Available [address], [address], 06/08/2024 14:45:06 06/07/20 24 06/08/2024 COMP. METAB OLIC PANEL creatinine 0.6 mg/dL 0.8-1. 3 low Not Available [address], [address], 06/08/2024 14:45:06 06/07/20 24 06/08/2024 COMP. METAB OLIC PANEL B/C 25.0 ratio Not Available [address], [address], 06/08/2024 14:45:06 06/07/20 24 06/08/2024 COMP. METAB OLIC PANEL GFR >=60ML /MIN mL/mi n normal >=60m L/min - Lisa l or midly reduc ed <60mL /min- Decre ased kidne y funct ion <15mL /min - Kidne y failu re [facility] calcu lates estim ated Glome rular Filtr ation Rate (eGFR ) using the Chron ic Kidne y Disea se Epide miolo gy Colla borat ion (CKD- EPI) Equat ion (Dusty r et. al 2020) as recom keya d by the Simranio sterling Kidne y Found ation . eGFR is based on age, serum creat inine , and sex. CKD-E PI does not calcu late eGFR by race, does not apply to child rosi (age <18 years ), and shoul d not be used in pregn lanette. Not Available [address], [address], 06/08/2024 14:45:06 06/07/20 24 06/08/2024 COMP. METAB OLIC PANEL sodium 144 mmol/ L 136-14 5 Not Available [address], [address], 06/08/2024 14:45:06 06/07/20 24 06/08/2024 COMP. METAB OLIC PANEL potassium 4.6 mmol/ L 3.5-5. 1 Not Available [address], [address], 06/08/2024 14:45:06 06/07/20 24 06/08/2024 COMP. METAB OLIC PANEL chloride 104 mmol/ L 96-107 Not Available [address], [address], 06/08/2024 14:45:06 06/07/20 24 06/08/2024 COMP. METAB OLIC PANEL anion gap 9.4 5.0-15 .0 Not Available [address], [address], 06/08/2024 14:45:06 06/07/20 24 06/08/2024 COMP. METAB OLIC PANEL CO2 31 mmol/ L 21-32 Not Available [address], [address], 06/08/2024 14:45:06 06/07/20 24 06/08/2024 COMP. METAB OLIC PANEL calcium 9.6 mg/dL 8.5-10 .3 Not Available [address], [address], 06/08/2024 14:45:06 06/07/20 24 06/08/2024 COMP. METAB OLIC PANEL total protein 7.8 g/dL 6.4-8. 2 Not Available [address], [address], 06/08/2024 14:45:06 06/07/20 24 06/08/2024 COMP. METAB OLIC PANEL albumin 4.2 g/dL 3.4-5. 0 Not Available [address], [address], 06/08/2024 14:45:06 06/07/20 24 06/08/2024 COMP. METAB OLIC PANEL globulin 3.6 g/dL Not Available [address], [address], 06/08/2024 14:45:06 06/07/20 24 06/08/2024 COMP. METAB OLIC PANEL A/G 1.2 ratio 0.8-2. 0 Not Available [address], [address], 06/08/2024 14:45:06 06/07/20 24 06/08/2024 COMP. METAB OLIC PANEL total bilirubin 0.60 mg/dL 0.00-1 .00 Not Available [address], [address], 06/08/2024 14:45:06 06/07/20 24 06/08/2024 COMP. METAB OLIC PANEL AST 15 U/L 0-37 Not Available [address], [address], 06/08/2024 14:45:06 06/07/20 24 06/08/2024 COMP. METAB OLIC PANEL ALT 29 U/L 6-63 Not Available [address], [address], 06/08/2024 14:45:06 06/07/2006/08/2024 COMP. METAB OLIC PANEL alk. phos. 63 U/L 50-136 Not Available [address], [address], 06/08/2024 14:45:06 06/07/20 24 06/08/2024 LIPID PANEL cholesterol 231 mg/dL <200 mg/dl Morgan able 200-2 39 mg/dl Borde rline High >240 mg/dl High Not Available [address], [address], 06/08/2024 14:45:07 06/07/20 24 06/08/2024 LIPID PANEL triglyceride s 169 mg/dL <150 mg/dL Lisa l 150-1 99 mg/dL Borde rline High 200-4 99 mg/dL High >500 mg/dL Very High Not Available [address], [address], 06/08/2024 14:45:07 06/07/20 24 06/08/2024 LIPID PANEL direct HDL 68 mg/dL <40 mg/dl - Major Risk for CHD >60 mg/dl - Negat whitney Risk for CHD Not Available [address], [address], 06/08/2024 14:45:07 06/07/20 24 06/08/2024 DIREC T LDL direct LDL 129 mg/dL RISK CATEG ORY LDL GOAL _ CHD or CHD Risk Equiv alent s <100 mg/dl (10-y ear risk >20%) 2+ Risk Facto rs <130 mg/dl (10-y ear risk <= 20%) 0-1 Risk Facto r? <160 mg/dl ? Almos t all peopl e with 0-1 risk facto r have a 10 year risk <10%, thus 10 year risk asses ment in peopl e with 0-1 risk facto r is not perla talavera. Not Available [address], [address], 06/08/2024 14:45:07 Result Notes None recorded. Problems Name Problem SNOMED Code Status Onset Date Resolution Date Notes Provider Name and Address Organization Details Recorded Time Greater trochant mandy pain syndrome 9687649 Completed 02/05/2016 Sendy Spivey MD [address] [place], [place] [address] [place], [address], [facility] 6 10:04:23 Long-ter m drug therapy Active 2016 Deborah Kurtz NP [address] [place], [place] [address] [place], [address], 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 3 09:12:01 Major depressi ve disorder 168857288 Active 2023 Maureen Mahajan MD [address] [place], [place] [address] [place], [address], [facility] 4 09:14:18 Osteopen ia 797540183 Active 2023 CAMILA Ortiz [address] [place], [place] [address] [place], [address], 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 6 10:04:23 Gastroes ophageal reflux disease 913409815 Active Deborah Kurtz NP [address] [place], [place] [address] [place], [address], [facility] 2 09:23:39 Osteoart hritis of knee 736176729 Completed 02/05/2016 Sendy Spivey MD [facility] [place], [address], [facility] 6 10:04:23 Multiple joint pain 44117975 Completed 200712/26/2008 duplicate Sendy Spivey MD [facility] [place], [address], [facility] 6 10:04:23 Allergic rhinitis 26474502 Active 2005 Deborah Kurtz NP [facility] [place], [place], [address], [facility] 2 09:23:40 Ankylosi ng spondyli tis 4065722 Active Deborah Kurtz NP [address] [place], [place], [address], [facility] 2 09:23:40 Localize d, primary osteoart hritis 776906469 Completed 11/02/2013 Sendy Spivey MD [facility] [place], [address], [facility] 6 10:04:23 Disorder of skeletal system 57741333 Completed 200707/21/2013 Sendy Spivey MD [facility] [place], [address], [facility] 6 10:04:23 Neoplasm of uncertai n behavior of skin 33913082 Completed 07/21/2013 [place], [address], [facility] 6 10:04:23 Joint pain 38152585 Completed 200712/26/2008 duplicate [place], [address], [facility] 6 10:04:23 Inflamma tory spondylo james Completed 02/05/2016 [place], [address], [facility] 6 10:04:23 Anemia 674683327 Completed 200611/02/2013 Sendy Spivey MD [address] [place], [address], [facility] 6 10:04:23 Acute maxillar y sinusiti s 46424832 Completed 200712/26/2008 Sendy Spivey MD [facility] [place], [address], [facility] 6 10:04:23 Acute conjunct ivitis 03489763 Completed 200612/26/2008 Sendy Spivey MD [facility] [place], [address], [facility] 6 10:04:23 Knee joint effusion 375687813 Completed 07/21/2013 [place], [address], [facility] 6 10:04:23 Knee joint effusion 901689074 Completed 200712/26/2008 duplicate Sendy Spivey MD [address] [place], [address], [facility] 6 10:04:23 Knee stiff 637012494 Completed 200712/26/2008 duplicate Sendy Spivey MD [address] [place], [address], [facility] 6 10:04:23 Malaise and fatigue 116330358 Completed 200707/21/2013 [place], [address], [facility] 6 10:04:23 Polymyal sissy rheumati ca 66132440 Completed 200702/03/2015 Sendy Spivey MD [address] [place], [address], [facility] 6 10:04:23 Hip stiff 308667499 Completed 200712/26/2008 duplicate Sendy Spivey MD [address] [place], [address], [facility] 6 10:04:23 Disorder of tendon of shoulder region 75256461 Completed 200712/26/2008 duplicate Sendy Spivey MD [address] [place], [address], [facility] 6 10:04:23 Urge incontin ence of urine 87590501 Active 2006 did do biofeedba ck at [facility] Deborah Kurtz NP [address] [place], [address], [facility] 2 09:23:40 Constipa tion by outlet obstruct ion 90328276 Active Deborah Kurtz NP [address] [place], [address], [facility] 2 09:23:40 Localize d, secondar y osteoart hritis 381435203 Completed 11/02/2013 Sendy Spivey MD [address] [place], [address], [facility] 6 10:04:23 Elevated level of transami nase and lactic acid dehydrog enase 992559601 Completed 02/05/2016 Sendy Spivey MD [address] [place], [address], [facility] 6 10:04:23 Shoulder pain 37246668 Completed 200612/26/2008 Sendy Spivey MD [address] [place], [place] [address], [address], [facility] 6 10:04:23 Sleep disorder 76011645 Active r/t pain and nocturia Deborah Kurtz NP [address] [place], [address], 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 6 10:04:23 Enthesop athy of hip region 40229945 Completed 07/21/2013 [place], [address], [facility] 6 10:04:23 Hip pain 59511114 Completed 07/21/2013 [place], [address], [facility] 6 10:04:23 Menstrua tion finding Completed 200512/26/2008 [place], [address], [facility] 6 10:04:23 Common cold 29537513 Completed 200712/26/2008 [place], [address], [facility] 6 10:04:23 Menopaus al symptom 07714344 Completed 200507/21/2013 [place], [address], [facility] 6 10:04:23 Low back pain 239764266 Completed 02/05/2016 [place], [address], [facility] 6 10:04:23 Menopaus al and postmeno pausal disorder s 936784685 Completed 200612/26/2008 duplicate [place], [address], 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 09:23:39 Problem Notes None recorded. Procedures Surgical History Date Name Laterality Status Provider Name and Address Organization Details Recorded Time 06/07/20 Medicare Wellness Visit completed Fabiola Neumann [facility] 06/02/2024 13:13:57 06/07/20 24 Medicare Annual Wellness Visit completed Fabiola Neumann [facility] 06/07/2024 10:15:29 06/07/20 24 Advanced Care Planning completed Fabiola Neumann [facility] 06/07/2024 10:14:25 06/06/20 23 Medicare Wellness Visit completed Araceli Herrera MA [facility] 06/06/2023 13:57:09 07/04/20 [address]: Therapeutic Exercise completed Ainsley Sanchez, PT [address] [place], [address], [facility] 07/04/2022 10:07:42 07/04/20 22 Treatment and Advice completed Ainsley Sanchez, PT [address] [place], [address], [facility] 07/04/2022 10:07:37 05/31/20 22 Medicare Wellness Visit completed Araceli Herrera MA [facility] 05/31/2022 09:04:32 05/31/20 22 Alcohol use screening completed Araceli Herrera MA [facility] 05/31/2022 09:04:32 05/31/20 22 Cardiovascular disease risk reduction counseling completed Araceli Herrera MA [facility] 05/31/2022 09:04:32 05/30/20 22 [address]: Therapeutic Exercise completed Ainsley Sanchez, PT [address] [place], [address], [facility] 05/30/2022 10:38:44 05/30/20 22 Treatment and Advice completed Ainsley Sanchez, PT [address] [place], [address], [facility] 05/30/2022 10:58:45 05/16/20 22 [address]: Therapeutic Exercise completed Ainsley Sanchez, PT [address] [place], [address], [facility] 05/16/2022 13:04:45 05/16/20 22 Treatment and Advice completed Ainsley Sanchez, PT [address] [place], [address], [facility] 05/16/2022 13:28:20 05/02/20 22 [address]: Therapeutic Exercise completed Ainsley Sanchez, PT [address] [place], [address], [facility] 05/02/2022 13:36:08 05/02/20 22 Treatment and Advice completed Ainsley Sanchez, PT [address] [place], [address], [facility] 05/02/2022 13:34:54 04/25/20 22 Physical Activity Counselling completed Ainsley Sanchez, PT [address] [place], [address], [facility] 04/25/2022 14:41:24 04/25/20 22 [address]: PT Eval Low Complexity completed Ainsley Sanchez, PT [address] [place], [address], [facility] 04/25/2022 14:41:21 04/25/20 22 Treatment and Advice completed Ainsley Sanchez, PT [address] [place], [address], [facility] 04/25/2022 14:41:18 03/26/20 22 Trochanteric Bursa Injection completed Charlie Lemos MD [address] [place] [address], [address], [facility] 03/26/2022 10:35:44 02/22/20 22 Knee Injection MCM completed Elliott Francisco MD [address] [place] [address], [address], [facility] 02/21/2022 10:38:17 02/01/20 21 Trochanteric Bursae Injection MCM completed Elliott Francisco MD [address] [place] [address], [address], [facility] 01/31/2021 11:25:40 05/17/20 20 Medicare Wellness Visit completed [facility] 05/16/2020 16:40:56 05/17/20 20 prevention-cardiov ascular risk reduction counseling completed [facility] 05/16/2020 16:40:56 05/17/20 20 prevention-annual alcohol misuse screening completed [facility] 05/16/2020 16:40:56 07/19/20 19 IV Therapy completed Karolina ndiaye RN [facility] 07/19/2019 14:08:42 07/18/20 19 POC Flu Testing completed Ada Barroso [facility] 07/18/2019 11:04:50 03/31/20 19 Medicare Wellness Visit completed Chelo Yan CMA [facility] 03/31/2019 10:44:44 02/26/20 18 Medicare Wellness Visit completed Rosana Lambert [facility] 02/25/2018 13:26:02 11/08/19 18 POC Strep Testing completed Stephani Adhikari [facility] 11/07/2017 11:43:50 05/23/20 17 Colonoscopy completed Sendy Spivey MD [address] [place] [address], [address], [facility] 06/15/2017 12:00:06 02/12/20 17 Medicare Wellness Visit completed Rosana Lambert [facility] 02/11/2017 08:45:52 02/12/20 17 Medicare Annual Wellness Visit completed Sendy Spivey MD [address] [place] [address], [phone], [facility] 02/16/2017 11:27:38 10/01/19 12 Greater Trochanteric Bursa Steroid Injection completed Jacqueline Connolly MD [address] [place] [address], [phone], [facility] 10/01/2011 14:13:14 04/22/20 11 Supartz Injection completed Jacqueline Connolly MD [address] [place] [address], [phone], [facility] 04/22/2011 09:02:27 04/15/20 11 Supartz Injection completed Jacqueline Connolly MD [address] [place] [address], [phone], [facility] 04/15/2011 10:59:00 04/08/20 11 Supartz Injection completed Jacqueline Connolly MD [address] [place] [address], [phone], [facility] 04/08/2011 19:08:17 10/22/19 11 Knee (Right) Injection completed Jacqueline Connolly MD [address] [place] [address], [phone], [facility] 10/22/2010 09:50:48 02/24/20 10 Knee (Left) Injection completed Jacqueline Connolly MD [address] [place] [address], [phone], [facility] 02/24/2010 07:54:50 09/01/18 91 Other (specify) completed Sara Arnold NP [address] [place] [address], [phone], [facility] 01/07/2014 15:34:42 Imaging Results None recorded. Procedure Notes None recorded. Medical Equipment None Reported. Allergies Allergen ID Allergen Name Allergen Category Reaction Reaction Severity Criticality Documentation Date Start Date Code Code System Note Provider Name and Address Organization Details Recorded Time 689051 cephalexi n medicatio n rash Not available Not available 06/07/2024 2231 RxNorm MAURA Suresh, [facility] 4 10:04:43 50655 isoniazid medicatio n Not available Not available Not available 03/11/2011 6038 RxNorm LFT abnor malit y Not Available [facility] 1 06:05:41 9162 codeine medicatio n nausea vomiting Not available Not available Not available 12/19/2008 2670 RxNorm Not Available [facility] 1 06:05:20 Medications Name Sig Start Date Stop Date Status Note LastModified by Organization Details LastModified Time compounde d medicatio n Ketoprof er gel 10% use tid as directed 2010 active Not Available Not Available Not Avai lable Prescript ion - Prior Authoriza tion Request 12/17 completed Not Available Not Available Not Available multivita min tablet Take 1 tablet every day by oral route. 02/16 completed w/Minera ls Not Available Not Available Not Available methocarb roseann 500 mg tablet 1 or 2 po q hs as dorected . 2011 active Not Available Not Available Not Avai lable prednison e 10 mg tablet TAKE 4 TABS PO QD FOR 14 DAYS, THEN 3.5 TABS QD FOR 14 DAYS, THEN 3 TABS PO QD. active Not Available Not Available No t Available doxycycli ne hyclate 100 mg capsule TAKE 2 CAPSULES BY MOUTH A SINGLE DOSE 05/31 completed finsihed 03/26/22 Not Available Not Available Not Available Vitamin C 500 mg tablet Take 1 tablet every day by oral route. 03/31 completed Not Available Not Available Not Available oxybutyni n chloride ER 10 mg tablet,ex tended release 24 hr Take 1 tablet every day by oral route. 2009 active Not Available Not Available Not Avai lable tizanidin e 4 mg tablet 1 or 2 po qhs as directed 01/08 completed Not Available Not Available Not Available alendrona te 70 mg tablet TAKE 1 TABLET BY MOUTH EVERY WEEK FIRST THING IN THE MORNING ON AN EMPTY STOMACH WITH A LARGE GLASS OF WATER. STAY UPRIGHT FOR 30 MINS active Not Available Not Available No t Available sertralin e 100 mg tablet TAKE 1 TABLET BY MOUTH DAILY ALONG WITH 50MG active Not Available Not Available No t Available prednison e 5 mg tablet 2007 active Take 4.00 tabs daily Not Available Not Available Not Available sulfasala zine 500 mg tablet,de layed release 2 po bid 07/22 completed Not Available Not Available Not Available fexofenad ine 180 mg tablet Take 1 tablet every day by oral route for 90 days. 2010 active Not Available Not Available Not Avai lable ciproflox acin 500 mg tablet TK 1 T PO Q 12 H 09/13 completed 09/13/19: see 09/02/[address] visit [email or web address] Not Available Not Available Not Available peg-elect rolyte solution 420 gram oral solution 10/03 completed Not Available Not Available Not Available Tessalon Perles 100 mg capsule Take 1 capsule 3 times a day by oral route for 10 days. 07/17 completed Not Available Not Available Not Available isoniazid 300 mg tablet Take 1 tablet every day by oral route. 02/08 completed Not Available Not Available Not Available famotidin e 20 mg tablet TK 1 T PO QD 05/31 completed Not taking Not Available Not Available Not Available Supartz 10 mg/mL intra-art icular syringe INJECT 2 MILLILIT ERS (20 MG) INTO THE AFFECTED KNEE BY INTRA-AR TICULAR ROUTE EVERY 7 DAYS FOR 3 WEEKS 2010 active Not Available Not Available Not Avai lable methotrex ate sodium 2.5 mg tablet TAKE 4 TABLETS EVERY WEEK active Not Available Not Available No t Available prednison e 1 mg tablet Take 4 tablets (4 mg) by oral route once daily, taper as directed 2008 active Not Available Not Available Not Avai lable cephalexi n 500 mg capsule TAKE 1 CAPSULE BY MOUTH TWICE DAILY FOR 10 DAYS 06/07 completed Not Available Not Available Not Available erythromy shanta 5 mg/gram (0.5 %) eye ointment APPLY A THIN FILM TO EYE LID WOUNDS 3 TIMES DAILY 03/31 completed Not Available Not Available Not Available naproxen sodium 220 mg tablet Take 2 tablets every day by oral route in the evening. 05/17 completed Not taking Not Available Not Available Not Available polymyxin B sulfate 10,000 unit-trim ethoprim 1 mg/mL eye drops 06/07 completed Not Available Not Available Not Available pyridoxin e (vitamin B6) 50 mg tablet Take 1 tablet every day by oral route. 2009 active Not Available Not Available Not Avai lable omeprazol e 20 mg capsule,d elayed release TAKE ONE CAPSULE BY MOUTH EVERY DAY 08/26 completed Not taking 03/21/17 Not Available Not Available Not Available folic acid 1 mg tablet Take 1 tablet every day by oral route. 2010 active Not Available Not Available Not Avai lable Nasonex 50 mcg/actua tion [place] 2 sprays every day by intranas al route for 90 days. 2008 active doesnt like to use Not Available Not Available Not Available estradiol 0.01% (0.1 mg/gram) vaginal cream INSERT 1 GRAM IN THE VAGINA AT BEDTIME DIRECTED 05/31 completed Not Available Not Available Not Available ipratropi um bromide 42 mcg (0.06 %) nasal spray [place] 2 sprays 3 times a day by intranas al route for 7 days. 2011 active Not Available Not Available Not Avai lable indometha shanta ER 75 mg capsule,e xtended release Take 1 capsule twice a day by oral route. 2009 active Not Available Not Available Not Avai lable ondansetr on 4 mg disintegr ating tablet DIS 1 T ON THE TONGUE Q 6 TO 8 H PRN 04/11 completed Pt not taking Not Available Not Available Not Available piroxicam 20 mg capsule Take 1 capsule every day by oral route. 2009 active Not Available Not Available Not Avai lable sertralin e 50 mg tablet TAKE 1 TABLET BY MOUTH DAILY ALONG WITH 100MG TABLET active Not Available Not Available No t Available doxycycli ne hyclate 100 mg tablet TAKE 2 TABLETS BY MOUTH AT ONCE active Not Available Not Available No t Available etodolac ER 600 mg tablet,ex tended release 24 hr Take 1 tablet every day by oral route. 02/03 completed Not Available Not Available Not Available folic acid 800 mcg tablet Take 1 tablet twice a day by oral route. 2013 active Not Available Not Available Not Avai lable tobramyci n 0.3 %-dexamet hasone 0.1 % eye drops,miguel pension INSTILL 1 DROP INTO AFFECTED EYE(S) BY OPHTHALM IC ROUTE EVERY 6 HOURS FOR 7 DAYS 06/07 completed Not Available Not Available Not Available Fish Oil Concentra te 1,000 mg capsule Take 1 capsule twice a day by oral route. 2013 active Not Available Not Available Not Avai lable Enbrel 50 mg/mL (1 mL) subcutane ous syringe Inject 1 mL every week by subcutan eous route. 2014 active Not Available Not Available Not Avai lable Fish Oil 1,200 mg-144 mg-216 mg capsule 2010 active take 1 cap daily (? Strength ) Not Available Not Available Not Available Calcium Citrate + D with Mag 250 mg-40 mg-5 mg-125 unit tablet Take 1 tablet twice a day by oral route. 2017 active 630mg calcium BID Not Available Not Available Not Available cholecalc iferol (vitamin D3) 25 mcg (1,000 unit) tablet Take 1 tablet twice a day by oral route. 03/31 completed Not Available Not Available Not Available Enbrel SureClick 50 mg/mL (1 mL) subcutane ous pen injector Inject 50 mg under the skin every week 2021 active Not Available Not Available Not Avai lable Calcium 600 + D(3) 600 mg-10 mcg (400 unit) tablet 2008 active Not Available Not Available Not Avai lable omeprazol e 20 mg tablet,de layed release Take 1 tablet every other day by oral route. 02/11 completed Not Available Not Available Not Available Probiotic see 09/02/[address] visit note rec probioti c 1-2 times a day 04/11 completed per [facility]. Not Available Not Available Not Available Multi For Her 50 Plus 04/11 completed Not Available Not Available Not Available methotrex ate 2.5 mg tablet Take 5 tablets every week by oral route. 12/17 completed Not Available Not Available Not Available cefixime 400 mg capsule Take 1 capsule every day by oral route for 10 days. 09/13 completed 09/13/19: see 09/02/[address] visit [email or web address] Not Available Not Available Not Available Shingrix (PF) 50 mcg/0.5 mL intramusc ular suspensio n, kit 05/31 completed Not Available Not Available Not Available BinaxNOW COVID-19 Ag Self Test kit TEST DIRECTED TODAY 06/06 completed Not Available Not Available Not Available sertralin e 150 mg capsule TAKE 1 CAPSULE BY MOUTH EVERY DAY active Not Available Not Available No t Available Vitals Date Recorded Body height Provider Name an d Address Organization Details Last Updated DateTime 01/01/2024 170.18 cm [facility] 01/01/2024 09:49:54 Date Recorded Body mass index (BMI) Body weight Provider Name and Address Organization Details Last Updated DateTime 01/01/2024 17.7 kg/m2 43260.94 g Sangita [facility] 01/01/2024 09:50:07 Date Recorded Heart rate Provider Name an d Address Organization Details Last Updated DateTime 01/01/2024 60 /min Sangita Preston [place] Faisal [facility] 01/01/2024 09:51:41 Date Recorded Body height Provider Name an d Address Organization Details Last Updated DateTime 01/15/2024 170.18 cm Sangita Malone [facility] 01/15/2024 08:31:35 Date Recorded Body mass index (BMI) Body weight Provider Name and Address Organization Details Last Updated DateTime 01/15/2024 17.7 kg/m2 35594.69 g Sangita Preston ME Faisal machado [facility] 01/15/2024 08:31:41 Date Recorded Heart rate Provider Name an d Address Organization Details Last Updated DateTime 01/15/2024 60 /min Sangita Preston ME Faisal [facility] 01/15/2024 08:33:19 Date Recorded Body height Provider Name an d Address Organization Details Last Updated DateTime 02/06/2024 170.18 cm MIRANDA Mckeon MA [facility] 02/06/2024 13:58:36 Date Recorded Body mass index (BMI) Body weight Provider Name and Address Organization Details Last Updated DateTime 02/06/2024 17.7 kg/m2 79488.[address] MA [facility] 02/06/2024 13:58:45 Date Recorded Body temperature Provider Name a nd Address Organization Details Last Updated DateTime 02/06/2024 98 [degF] MIRANDA Mckeon MA [facility] 02/06/2024 14:00:10 Date Recorded Heart rate Provider Name an d Address Organization Details Last Updated DateTime 02/06/2024 50 /min MIRANDA Mckeon MA [facility] 02/06/2024 14:00:35 Date Recorded Oxygen saturation Oxygen saturation in Arterial blood by Pulse oximetry Provider Name and Address Organization Details Last Updated DateTime 02/06/2024 98 % 98 % Salena Trejo MA [facility] 02/06/2024 14:00:38 Date Recorded Body height Provider Name an d Address Organization Details Last Updated DateTime 06/07/2024 170.18 cm Fabiola Nel, [facility] 06/07/2024 10:09:02 Date Recorded Oxygen saturation Oxygen saturation in Arterial blood by Pulse oximetry Provider Name and Address Organization Details Last Updated DateTime 06/07/2024 99 % 99 % Fabiola Neumann [facility] 06/07/2024 10:11:04 Date Recorded Heart rate Provider Name an d Address Organization Details Last Updated DateTime 06/07/2024 64 /min Fabiola Neumann [facility] 06/07/2024 10:11:10 Date Recorded Body mass index (BMI) Body weight Provider Name and Address Organization Details Last Updated DateTime 06/07/2024 18.5 kg/m2 42168.9 g Fabiola Neumann [facility] 06/07/2024 10:11:53 Date Recorded Body height Provider Name an d Address Organization Details Last Updated DateTime 06/15/2024 170.18 cm Nicole Quigley [facility] 06/15/2024 09:22:41 Date Recorded Body mass index (BMI) Body weight Provider Name and Address Organization Details Last Updated DateTime 06/15/2024 18.5 kg/m2 95909.9 g Nicole Quigley [facility] 06/15/2024 09:22:46 Date Recorded Heart rate Provider Name an d Address Organization Details Last Updated DateTime 06/15/2024 76 /min Nicole Quigley [facility] 06/15/2024 09:25:41 Date Recorded Systolic blood pressure Diastolic blood pressure Provider Name and Address Organization Details Last Updated DateTime 01/01/2024 120 mm[Hg] 63 mm[Hg] [facility] 09:51:38 Date Recorded Systolic blood pressure Diastolic blood pressure Provider Name and Address Organization Details Last Updated DateTime 01/15/2024 111 mm[Hg] 50 mm[Hg] [facility]/15/2024 08:33:05 Date Recorded Systolic blood pressure Diastolic blood pressure Provider Name and Address Organization Details Last Updated DateTime 02/06/2024 110 mm[Hg] 50 mm[Hg] Salena Trejo [facility] 02/06/2024 14:01:32 Date Recorded Systolic blood pressure Diastolic blood pressure Provider Name and Address Organization Details Last Updated DateTime 06/07/2024 128 mm[Hg] 62 mm[Hg] Fabiola Nel [facility] 06/07/2024 10:10:05 Date Recorded Systolic blood pressure Diastolic blood pressure Provider Name and Address Organization Details Last Updated DateTime 06/15/2024 114 mm[Hg] 54 mm[Hg] Nicole Dann [facility] 06/15/2024 09:25:37 Social History Question Answer Notes LastModified by Organizat ion Details LastModified Time Tobacco Smoking Status Former Smoker 01/07/14 Quit age 20. Not Available [facility] 01/24/2011 02:08:47 Do You Have An Advance Directive? Yes [email or web address] Information not available 07/18/2011 What Is Your Level Of Alcohol Consumption? Occasional Wine Or Beer W/ Meal A Few Time Per Week Information not available 06/07/2024 Do You Wear A Helmet When Biking? Yes Information not available 05/31/2022 Are You Blind Or Do You Have Difficulty Seeing? No Information not available 01/07/2014 What Is Your Level Of Caffeine Consumption? Moderate Less Than 8oz Cup Of Coffee Daily And Chocolate Information not available 06/07/2024 How Much Tobacco Do You Chew? None [email or web address] Information not available 07/18/2011 Are You Deaf Or Do You Have Serious Difficulty Hearing? No 01/07/14 Information not available 01/07/2014 What Type Of Diet Are You Following? REGULAR Organic, Vegetables Information not available 01/07/2014 Which Illicit Or Recreational Drugs Have You Used? None Information not available 09/29/2012 Do You Or Have You Ever Used E-cigarettes Or Vape? Never Used Electronic Cigarettes Information not available 07/18/2019 Education Post Graduate [email or web address] [id number] Information not available 07/18/2011 What Is The Highest Grade Or Level Of School You Have Completed Or The Highest Degree You Have Received? 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 No Information not available 06/07/2024 When Did You Quit Smoking? 16+yearssince romelia Information not available 02/05/2016 How Many Days In The Past Year Have You Had A Heavy Drinking Consumption (4+ Female, 5+ Male)? 0 Information not available 01/07/2014 Are There Any Guns Present In Your Home? No [email or web address] Information not available 07/18/2011 Do You Use Insect Repellent Routinely? Yes Information not available 05/31/2022 Live Alone Or With Others? With Others W/ Information not available 04/15/2011 Does The Patient Have Difficulty Speaking Romanian? No [email or web address] Information not available 07/18/2011 Does The Patient Have Difficulty Reading Romanian? No Wears Rx Glasses/no Contacts [email or web address] Information not available 07/18/2011 Patient Has Health Care Proxy Signed And In Chart Yes =Ashvin Strong [email or web address] Information not available 07/18/2011 CCM Consent Discussion 02/25/2018 [email or web address] Information not available 02/27/2018 Marital Status Ashvin [place] Informatio n not available 12/27/2009 Mosquito Repellent Used Routinely Yes [email or web address] Information not available 07/18/2011 What Was The Date Of Your Most Recent Tobacco Screening? 06/15/2024 [email or web address] Information not available 06/15/2024 How Many Children Do You Have? 2 Sandie 78 Katey 81 Information not available 09/29/2012 What Is Your Current Pack Years? 10packyears Information not available 02/05/2016 What Is Your Relationship Status? 06/06/23=going Through [employer] Information not available 06/06/2023 Do You Use Your Seat Belt Or Car Seat Routinely? Yes Information not available 05/31/2022 Seat Belts Used Routinely Yes [email or web address] Information not available 07/18/2011 Are You Sexually Active? Yes [email or web address] Information not available 07/18/2011 Smoke Alarm In Home Yes [email or web address] Information not available 07/18/2011 Do You Have Smoke And Carbon Monoxide Detectors In Your Home? Yes Information not available 05/31/2022 At What Age Did You Start Smoking Tobacco? 18 Information not available 01/07/2014 Are You Passively Exposed To Smoke? No Information not available 05/31/2022 Do You Or Have You Ever Used Smokeless Tobacco? Never Used Smokeless Tobacco Information not available 07/18/2019 How Much Tobacco Do You Smoke? No Information not available 07/18/2019 General Stress Level Medium [email or web address] Information not available 05/17/2020 Do You Use Any Illicit Or Recreational Drugs? No Information not available 05/31/2022 Do You Use Sunscreen Routinely? Yes [email or web address] Information not available 07/18/2011 How Many Years Have You Smoked Tobacco? 2 Information not available 01/07/2014 Do You Or Have You Ever Used Any Other Forms Of Tobacco Or Nicotine? No Information not available 06/07/2024 How Many Days In The Past Year Have You Consumed 4 Or More Drinks? 0 Information not available 05/31/2022 Sex: Female Functional Status Question Answer Note LastModified by Organizat ion Details LastModified Time Do you have difficulty walking or climbing stairs? No Information not available 01/07/2014 Do you have difficulty doing errands alone? No Information not available 01/07/2014 Do you have difficulty dressing or bathing? No Information not available 01/07/2014 What is your exercise level? Occasional Walking as she can, yoga strength training Information not available 06/07/2024 Mental Status Question Answer Note LastModified by Organizat ion Details LastModified Time Do you have difficulty concentrating, remembering or making decisions? No anxious/depres sed tends to be scaterred not make good decisions Information not available 01/07/2014 Family History Relationship Description Onset Age of this Age Resolved Age Notes LastModified by Organization Details LastModified Time Maternal Grandmother Malignant tumor of colon 83 [email or web address] Not available 2015 10:05:40 Paternal Grandfather Heart disease 70 [email or web address] Not available 2015 10:05:40 Father Dementia 89 [email or web address] Not available 02/05/2016 10:05:40 Mother Diabetes mellitus [email or web address] Not available 2015 10:05:40 Mother Cerebrovascu lar accident 79 piverson Not available 01/2016 10:05:40 Mother Alzheimer's disease [email or web address] Not available 2023 10:38:55 Paternal Grandmother Heart disease 70 piverson Not available 2015 10:05:40 Maternal Grandfather Cerebrovascu lar accident 65 piverson Not available 01/2016 10:05:40 Sister Hyperlipidem ia piverson Not available 2015 10:05:40 Sister Impaired cognition 77 [email or web address] Not available 2023 10:39:12 Medical History Condition Response Incontinence Y Osteoarthritis Y MUSCULOSKELETAL Y GERD Y RHEUMATOLOGIC Y Tuberculosis Y Allergic Rhinitis Y Osteopenia Y Irritable Bowel Syndrome Y Allergies Y Gynecological History Statement/Question Response HPV N History of Abnormal Pap N LMP Approximate Obstetrics History GPAL:G 0 P 0 0 0 0 Immunizations Vaccine Type Date Status Note Provider Nam e and Address Organization Details Recorded Time Influenza, split virus, trivalent, preservative 1 completed Not Available [facility] 09/18/2019 02:34:20 influenza, unspecified formulation 7 completed Not Available [facility] 04/24/2022 18:22:33 pneumococcal polysaccharide PPV23 8 completed Not Available [facility] 04/24/2022 18:22:33 Tdap 2 completed Not Available [facility] 09/18/2019 02:28:10 Influenza, split virus, trivalent, preservative 2 completed Not Available [facility] 09/18/2019 02:18:35 Influenza, split virus, quadrivalent, PF 3 completed Not Available [facility] 09/18/2019 02:18:55 Td(adult) unspecified formulation 4 completed Not Available [facility] 04/24/2022 18:22:33 Influenza, high-dose, trivalent, PF 4 completed Not Available [facility] 09/18/2019 02:19:02 Influenza, split virus, quadrivalent, PF 5 completed Not Available [facility] 09/18/2019 02:19:47 Influenza, split virus, quadrivalent, PF 6 completed Not Available [facility] 09/18/2019 02:21:05 Pneumococcal conjugate PCV 13 7 completed Not Available [facility] 09/18/2019 02:21:36 Influenza, high-dose, trivalent, PF 7 completed Not Available [facility] 09/18/2019 02:22:04 Influenza, high-dose, trivalent, PF 8 completed Not Available [facility] 09/18/2019 02:37:59 Influenza, high-dose, trivalent, PF 9 completed Not Available [facility] 09/18/2019 02:36:22 pneumococcal polysaccharide PPV23 8 completed Not Available [facility] 04/24/2022 18:22:33 Influenza, high-dose, quadrivalent, PF 0 completed MIRANDA Hilton, [facility] 05/20/2020 11:00:31 Influenza, high-dose, quadrivalent, PF 1 completed DON Alcantara, [facility] 06/14/2021 15:24:32 zoster recombinant 0 completed Not Available [facility] 04/24/2022 18:22:33 Td (adult), 2 Lf tetanus toxoid, preservative free, adsorbed 2 completed Deborah Kurtz, [facility] [address] [place] [address], [phone], [facility] 06/27/2022 16:53:37 COVID-19, mRNA, LNP-S, PF, 100 mcg/0.5mL dose or 50 mcg/0.25mL dose [address] [facility] 06/07/2024 09:53:48 COVID-19, mRNA, LNP-S, PF, 100 mcg/0.5mL dose or 50 mcg/0.25mL dose [address] [facility] 06/07/2024 09:53:48 COVID-19, mRNA, LNP-S, PF, 100 mcg/0.5mL dose or 50 mcg/0.25mL dose [facility] 09:53:48 COVID-19, mRNA, LNP-S, PF, 100 mcg/0.5mL dose or 50 mcg/0.25mL dose [facility] 09:53:48 [facility] recombinant [facility] 13:16:12 zoster, unspecified formulation 0 [facility]07[facility] 09:53:48 Influenza, high-dose, quadrivalent, PF 2 [facility] 09:53:48 Influenza, high-dose, quadrivalent, PF 3 [facility] 09:53:48 COVID-19, mRNA, LNP-S, bivalent, PF, 50 mcg/0.5 mL or 25mcg/0.25 mL dose 2 [facility] 09:53:48 RSV, bivalent, protein subunit RSVpreF, diluent reconstituted, 0.5 mL, PF 3 completed [facility] 06/07/2024 09:53:48 COVID-19, mRNA, LNP-S, PF, 50 mcg/0.5 mL 3 completed [facility] 06/07/2024 09:53:48 Influenza, high-dose, trivalent, PF 4 completed [facility] 10:13:30 Past Encounters Encounter ID Performer Location Encounter Start Date Encounter Closed Date Diagnosis/Indication Diagnosis SNOMED-CT Code Diagnosis ICD10 Code Diagnosis Note [id number] [facility] Juaquin [facility] [place] [address] 01/11/2005 16:51:14 01/11/2005 16:55:01 [id number] [facility], [place] [address] 11/08/2005 10:05:01 11/08/2005 16:08:11 [id number] [facility], OFFICE Formerly [facility], [facility] [place] [address] 01/23/2006 15:41:06 01/23/2006 16:51:40 [id number] [facility] - [facility] [place] [address] 1 01/24/2006 08:14:34 01/24/2006 08:14:55 [id number] [facility], [place] [address] 1 08/01/2006 16:09:52 08/02/2006 13:09:32 [id number] [facility], [place] [address] 1 11/24/2006 15:02:24 11/24/2006 17:19:46 [id number] [facility] [place] [address] 1 11/24/2006 15:51:50 11/24/2006 16:16:00 [id number] [facility] [place] [address] 1 11/28/2006 09:40:40 11/28/2006 09:40:43 [id number] [facility], [place] [address] 1 07/07/2007 07:58:20 09/21/2008 02:02:29 [id number] [facility], [place] [address] 1 2007 08:40:45 07/22/2007 11:06:06 [id number] [facility] [place] [address] 1 09/10/2007 13:28:51 09/10/2007 13:28:59 [id number] [facility], OFFICE [address] [place], [place] [address] 09/10/2007 12:44:36 09/21/2008 02:02:29 [id number] [facility], OFFICE [address] [place], [place] [id number] 1 09/18/2007 13:31:15 09/21/2008 02:02:29 [id number] LAB - [facility] [address] [place] [address] 1 09/18/2007 15:13:33 09/18/2007 15:13:40 [id number] [facility], OFFICE [address] [place], [place] [address] 1 09/23/2007 14:03:25 09/21/2008 02:02:29 [id number] LAB - [facility] [place] [address] 1 10/22/2007 10:24:21 10/22/2007 10:45:29 [id number] [facility], OFFICE [address] [place], [place] [address] 1 10/22/2007 09:15:51 09/21/2008 02:02:29 [id number] [facility] [place] [address] 1 11/04/2007 11:47:28 11/04/2007 11:47:40 [id number] Rheumatol carolecarter [facility] [place] [address] 1 11/04/2007 10:34:53 09/21/2008 02:02:29 [id number] Radiology , [facility] [address] [place] [address] 1 11/06/2007 10:49:53 11/06/2007 18:02:46 [id number] Rheumatol ogcarter [facility] [place] [address] 1 12/07/2007 15:05:59 09/21/2008 02:02:29 [id number] LAB - [facility] [place] [address] 1 12/07/2007 16:21:16 12/07/2007 16:21:24 [id number] [facility], OFFICE [address] [place] [address] 1 12/18/2007 08:14:29 09/21/2008 02:02:29 [id number] Rheumatol ogcarter [facility] [place] [address] 1 01/04/2008 15:06:33 09/21/2008 02:02:29 [id number] Physical Therapy, [facility] [place] [address] 1 01/18/2008 14:54:53 09/21/2008 02:02:29 [id number] Physical Therapy, [facility] [place] [address] 1 02/02/2008 14:52:03 02/02/2008 16:23:47 [id number] Rheumatol rhonda [facility] [place] [address] 1 02/23/2008 15:22:45 09/21/2008 02:02:29 [id number] LAB - [place] [id number] [place] [address] 1 05/06/2008 12:16:02 05/06/2008 12:20:30 [id number] Rheumatol carolecarter [facility] [place] [address] 1 05/06/2008 11:34:46 09/21/2008 02:02:29 [id number] Tyrellol rhonda [facility] [place] [address] 1 06/21/2008 15:09:35 09/21/2008 02:02:29 [id number] Rheumatol rhonda [facility] [place] [address] 1 09/27/2008 14:29:30 09/29/2008 11:52:40 [id number] , [facility], [place] [address] 1 12/19/2008 15:04:22 12/20/2008 08:39:27 [id number] LAB - [facility] [place] [address] 1 12/26/2008 07:37:56 12/26/2008 07:38:07 [id number] Rheumatol carolecarter [facility] [place] [address] 1 07/03/2009 08:12:59 07/04/2009 10:06:52 [id number] Radiology , [facility] [address] [place], [place] [address] 07/03/2009 08:46:44 07/03/2009 08:58:54 [id number] Radiology , [facility] [address] [place], [place] [address] 1 11/30/2009 09:15:50 12/01/2009 09:52:32 [id number] Radiology , [address], [place] [address] 11/30/2009 09:16:06 11/30/2009 09:57:34 [id number] FP, [facility], OFFICE [address] [place], [place] [address] 1 12/27/2009 09:00:01 12/28/2009 08:22:53 [id number] Rheumatol carolecarter, [place] [address] [place], [place] [address] 1 02/23/2010 10:51:21 02/28/2010 10:03:49 [id number] Rheumatol carolecarter, [place] [address] [place], [place] [address] 1 04/17/2010 12:52:57 04/23/2010 09:21:09 [id number] Rheumatol carolecarter, [facility] [place], [place] [address] 1 05/25/2010 09:34:07 05/30/2010 08:39:52 [id number] Rheumatol carolecarter [place] [address] [place], [place] [address] 1 07/13/2010 10:56:24 07/13/2010 15:41:02 [id number] Rheumatol carolecarter, [facility] [place], [place] [id number] 1 08/13/2010 15:48:57 08/14/2010 09:20:05 [id number] Rheumatol ogcarter [facility] [place], [place] [address] 1 08/22/2010 08:51:33 08/28/2010 08:08:13 [id number] Rheumatol rhonda [place] [address] [place], [place] [address] 1 09/10/2010 08:37:29 09/11/2010 09:08:03 [id number] Radiology , [facility] [place], [place] [address] 1 09/10/2010 09:09:00 09/10/2010 09:19:43 [id number] Rheumatol ogcarter, [facility] Steven [place], [place] [address] 1 09/20/2010 10:02:00 09/20/2010 15:33:25 [id number] Rheumatol ogcaretr, [facility] [address] [place], [place] [address] 1 10/22/2010 08:05:51 10/22/2010 11:46:56 [id number] Rheumatol ogy, [facility] [place], [place] [address] 1 12/24/2010 07:49:29 12/24/2010 13:47:47 [id number] Radiology , [address], [place] [address] 1 12/24/2010 10:25:06 12/24/2010 10:46:16 [id number] Radiology , [address], [place] [address] 1 01/17/2011 07:56:18 01/18/2011 07:52:23 [id number] Rheumatol ogcarter, [facility] Steven [place], [place] [address] 1 03/11/2011 08:02:49 03/11/2011 08:44:43 [id number] Rheumatol ogcarter [place] [address] [place], [place] [address] 1 04/08/2011 14:50:51 04/09/2011 08:52:12 [id number] Rheumatol ogcarter, [address], [place] [address] 1 04/15/2011 10:25:40 04/16/2011 09:19:19 [id number] FP, [facility], [place] [address] [place], [place] [address] 1 04/15/2011 13:06:23 04/15/2011 14:37:29 [id number] Rheumatol ogcarter, [place] [address] [place], [place] [address] 1 04/22/2011 08:25:11 04/23/2011 09:02:40 [id number] Rheumatol ogy, [facility] Steven [place], [place] [address] 1 05/23/2011 08:30:55 05/24/2011 09:19:36 [id number] Rheumatol ogcarter [facility] Steven [place], [place] [id number] 1 07/22/2011 14:24:19 07/23/2011 08:26:47 [id number] MAURA Morris Rheumatol ogcarter [facility] [place], [place] [address] 1 08/20/2011 14:32:00 08/21/2011 09:07:19 [id number] Rheumatol ogcarter [facility] [place], [place] [address] 1 10/01/2011 12:49:42 10/02/2011 09:08:19 [id number] Rheumatol ogcarter, [facility] Steven [place], [place] [address] 1 11/29/2011 14:41:56 12/02/2011 08:37:06 [id number] Radiology , [facility] [place], [place] [address] 1 02/13/2012 15:17:03 02/14/2012 10:45:00 [id number] Rheumatol ogcarter [facility] Steven [place], [place] [address] 1 02/27/2012 10:30:46 02/28/2012 07:37:47 [id number] [facility], [place] [address] 1 03/10/2012 09:23:17 03/10/2012 10:02:09 [id number] Charlene Nicole LPN Rheumatol ogcarter [facility] [place] [address] 1 05/26/2012 12:59:36 05/27/2012 07:33:50 [id number] Babita Kenyon MD , [facility], OFFICE Formerly [facility], [facility] [address] 1 07/07/2012 12:46:31 07/07/2012 13:46:43 [id number] GENE Dhillon, [facility], OFFICE [address] [place] [address] 1 09/29/2012 13:03:31 11/09/2012 07:42:37 [id number] Jayda Dupont MD Radiology , [address] [place] [address] 09/29/2012 14:02:06 09/29/2012 16:21:07 [id number] Jacqueline Connolly MD Rheumatol [address] [place] [address] 1 02/09/2013 08:06:50 02/10/2013 08:26:37 [id number] Kaila Cardona LPN [facility], OFFICE [address] [facility] [place] [address] 1 07/02/2013 06:39:05 07/02/2013 11:52:21 Influenza vaccine needed [id number] Rheumatol [address] [place] [address] 1 08/17/2013 12:59:11 08/18/2013 08:40:27 Ankylosing spondylitis 3711330 B27+ SpArth: Spondyliti s and periph arthropath y, systemic features. Started Enbrel September,. History of positive PPD, treated with 7 months INH but then developed LFT abnormalit ies. Now on Enbrel + MTX 15 mg/week and doing very well. Knee inflammati on has come under complete control. Will try to further reduce dose of MTX to 7.5 mg.. Continue monitoring labs on MTX. Return 6mo. up to date on flu vaccine. Previous Pneumovax. Discussed that if she were to get shingles vaccine she needs to hold on methotrexa te. She should discuss this with me. [id number] , [facility], OFFICE [address] [facility] [place] [address] 1 01/07/2014 14:35:48 01/10/2014 07:47:59 Adult health examination [id number] see Risk Assessment and Lifestyle Change Counseling section above Screening mammography [id number] Urinary incontinence [id number] Ankylosing spondylitis 7039294 Stable on medication s. Moderate r ecurrent major depression [id number] Toña Ibarra Rheumatol [address] [place] [address] 1 01/27/2014 08:41:05 01/28/2014 09:17:20 Ankylosing spondylitis 2558752 B27+ SpArth: Spondyliti s and periph arthropath y, systemic features. Started Enbrel September,. History of positive PPD, treated with 7 months INH but then developed LFT abnormalit ies. Now on Enbrel + MTX 7.5 mg/week and doing very well. Knee inflammati on has come under complete control. Can try hs dose of Etodolac instead of the Naproxen to see if it helps with AM stiffnes. If not superior, should go back to Aleve. Continue monitoring labs on MTX. Return 6mo. [id number] DON Morataya, [facility], OFFICE [address] [facility] [place] [address] 06/14/2014 08:23:03 06/14/2014 08:38:24 Influenza vaccine needed [id number] Rheumatol rhonda, [facility] [address] [facility] [place] [address] 1 07/19/2014 08:43:30 07/21/2014 09:29:29 Ankylosing spondylitis 1698176 B27+ SpArth: Spondyliti s and periph arthropath y, systemic features. Started Enbrel September,. History of positive PPD, treated with 7 months INH but then developed LFT abnormalit ies. Now on Enbrel + MTX 7.5 mg/week and doing very well. Knee inflammati on has come under complete control. Can try hs dose of Etodolac instead of the Naproxen to see if it helps with AM stiffnes. If not superior, should go back to Aleve. Continue monitoring labs on MTX. Return 6mo. Osteoarthr itis of knee [id number] I suspect there is a little bit of post inflammato ry degenerati ve arthritis involving the knees. She is requesting physical therapy. I wrote out a physical therapy prescripti on and she will decide where she wants to get this done. If she needs a referral she may call here. [id number] Toña PAR[place], [facility], OFFICE [address] [facility] [place] [address] 1 02/03/2015 09:41:27 02/03/2015 10:43:49 Adult health examination [id number] see Risk Assessment and Lifestyle Change Counseling section above Ankylosing spondylitis [id number] feels it has flared since she has started doing more physical activity she is wondering if she could increase her methotrexa te has upcoming apt w/Dr. Connolly she would like to be referred to physical therapist for craniosacr al therapy but cannot remember the name she is to get back to me with name and a referral will be made Skin - german ign mole and nevus [id number] on left upper lip she recently was seen by dermatolog ist and cyrotherap y was performed she is to go back shortly and if area does not fall off she is to have the area shaved Urge incon tinence of urine [id number] she has been to [facility] for biofeedbac k [id number] Rheumatol [address] [place] [address] 1 02/20/2015 08:06:55 02/22/2015 13:55:38 Ankylosing spondylitis 7730914 B27+ SpArth: Spondyliti s and periph arthropath y, systemic features. Started Enbrel September,. History of positive PPD, treated with 7 months INH but then developed LFT abnormalit ies. Recent flare in peripheral arthritis, doing better past week. Now on Enbrel every 8 days and recently increased+ MTX 12.5 mg/week. Lately takeing more Aleve: up to 6 per day. Plan no change in meds for now. Has only been on higher dose of MTX about 2 weeks. We shall see how she does over next couple of months. Follow labs on MTX. Discussed Aleve and GI toxicity: strongly suggest that she take omeprazole at least every other day. Long-term drug therapy [id number] on MTX. follow labs. On NSAID: discussed GI and CV risks. Add back omeprazole . [id number] DON Bautista, [facility], OFFICE [address] [facility] [place] [address] 1 05/26/2015 12:46:43 05/26/2015 12:48:18 Influenza vaccine needed [id number] Jacqueline Connolly MD Rheumatol rhonda [address] [place] [address] 1 09/05/2015 15:52:39 09/07/2015 12:44:08 Ankylosing spondylitis 8494533 M45.0 B27+ SpArth: Spondyliti s and periph arthropath y, systemic features. Started Enbrel September,. Now also on MTX and peripheral synovitis well supressed. Very little current back pain on meds. Check labs on MTX. Return for labs 3 mo, RV 6 mo. Osteoarthr itis of knee 826316127 M17.9 I suspect there is a little bit of post inflammato ry degenerati ve arthritis involving the R knee. Has mild flexion contractur e on the R. Refer (again ) for PT. Greater tr ochanteric pain syndrome 0382251 M70.62 Mild to moderate sx's. Offered local injection. She wants to wait and will call if inj needed. Long-term drug therapy 871521233 Z79.899 Z79.1 on MTX. follow labs. On NSAID: discussed GI and CV risks. omeprazole . [id number] Sendy Spivey MD , [facility], OFFICE [address] [facility] [place] [address] 02/05/2016 09:06:41 02/05/2016 10:39:07 Screening for malignant neoplasm of cervix 357470856 Z12.4 Adult heal th examination 303924647 Z00.00 see Risk Assessment and Lifestyle Change Counseling section above. Pap performed today.5-yr colonoscop y due . Last mammogram 03/2015 and will do qyr vs qoyr at pt's discretion . Plan to update BDX at age 66. Allergic rhinitis 555343 04 J30.2 Active now with cough, itchy eyes and throat. Takes OTC Claritin prn. Ankylosing spondylitis 1925908 M45.0 Now on Embrel, rheum visits q6mos, prn steroid injections , labs q4mos. Down to two naproxen qhs. Primary pain sites R knee and R hip - positional , varies with amount of activity. No longer runs but walks, hikes. Rec PT for strengthen ing/balanc ing as already recommende d by Dr. Connolly. Constipati on by outlet obstruction 12376414 K59.02 No change in symptoms, bowel function. Has done pelvic rehab. Gastroesop hageal reflux disease 581209180 K21.9 In setting of po steroids and alendronat e use. Will not wean PPI at this time, but consider at each visit. [id number] Jacqueline Connolly MD Rheumatol [address] [address] 03/26/2016 13:22:53 04/08/2016 07:48:01 Ankylosing spondylitis 8389036 M45.0 B27+ SpArth: Spondyliti s and periph arthropath y, systemic features. Started Enbrel September,. Now also on MTX and peripheral synovitis well supressed. Very little current back pain on meds. Check labs on MTX. Return for labs 3 mo, RV 6 mo. Greater tr ochanteric pain syndrome 4505377 M70.62 Mild to moderate sx's. Offered local injection. She wants to wait and will call if inj needed.Try topical NSAID: samples of Pennsaid. If seems helpful can try to prescribe it or Voltaren gel. Long-term drug therapy 743903052 Z79.899 Z79.1 on MTX. follow labs. On NSAID: discussed GI and CV risks. omeprazole . [id number] Geoff Jang MD , [facility], OFFICE [address] [place] [address] 06/26/2016 09:52:34 06/27/2016 12:15:12 Active or passive immunization 616555284 Z23 [id number] Jacqueline Connolly MD Rheumatol [facility], [address] [address] 09/13/2016 08:14:37 09/16/2016 07:20:43 Ankylosing spondylitis 8507794 M45.0 B27+ SpArth: Spondyliti s and periph arthropath y, systemic features. Started Enbrel September,. Now also on MTX and peripheral synovitis well supressed. Very little current MSK pain on meds (aside from DJD knee).Anti cipates problem affording Enbrel starting when her retires in a few months.Dis cussed options. Will try to lengthen interval. Provided drug company literature . I do no see alternativ e to TNF agent. Check labs on MTX. Return for labs 3 mo, RV 6 mo. Secondary osteoarthritis 883337234 M17.5 Post imflammato ry degenerati ve arthritis especially R knee.Getti ng PT and it is helping.No effusion today, but if swelling could come for steroid injection. Ultimately will probably come to knee replacemen t. discussed. Long-term drug therapy 364066432 Z79.899 Z79.1 on MTX. follow labs. On NSAID: discussed GI and CV risks. omeprazole . [id number] Sendy Spivey MD , [facility], OFFICE [address] [facility] [place] [address] 02/11/2017 08:09:08 02/11/2017 10:27:29 Adult health examination 897374681 Z00.00 see Risk Assessment and Lifestyle Change Counseling section above Counseling 611147968 Z71 .9 Screening mammography 24 067665 Z12.31 Ankylosing spondylitis 4868109 M45.0 Now on Embrel, rheum visits q6mos, prn steroid injections , labs q4mos. Down to two naproxen qhs. Primary pain sites R knee and R hip - positional , varies with amount of activity. No longer runs but walks, hikes. Rec PT for strengthen ing/balanc ing as already recommende d by Dr. Connolly. Screening for malignant neoplasm of colon 341289339 Z12.11 Active or passive immunization 736752978 Z23 Osteopenia 528337215 M85 .80 [id number] Jacqueline Connolly MD Rheumatol og, [address] [address] 03/21/2017 08:43:31 04/07/2017 07:30:31 Ankylosing spondylitis 1990983 M45.0 B27+ SpArth: Spondyliti s and periph arthropath y, systemic features. Started Enbrel September,. Now also on MTX and peripheral synovitis well supressed. Very little current MSK pain on meds (aside from DJD knee). Try increasing the interval between Enbrel injections to 10 days. Check labs on MTX. Return for labs 3 mo, RV 6 mo. Long-term drug therapy 126154793 Z79.899 Z79.1 on MTX. follow labs. On NSAID: Low dose. discussed GI and CV risks. omeprazole qod.. Osteoarthr itis of knee 083361158 M17.9 I suspect there is post inflammato ry degenerati ve arthritis involving the R knee. Has mild flexion contractur e on the R. Not red or warm. PT home exercises. Also try topicals: Aspercreme with lidocaine and/or arnica gel. [id number] Kenzie Plunkett LPN , [facility], OFFICE [address] [facility] [place] [address] 06/17/2017 06:57:48 06/18/2017 07:50:15 Active or passive immunization 293180225 Z23 [id number] Jacqueline Connolly MD Rheumatol carole, [address] [place] [address] 10/03/2017 13:52:56 10/03/2017 14:19:31 Ankylosing spondylitis 9648559 M45.0 B27+ SpArth: Spondyliti s and periph arthropath y, systemic features. Started Enbrel September,. Now also on MTX and peripheral synovitis well supressed. Very little current MSK pain on meds (aside from DJD knee). Check labs on MTX. Return for labs 3 mo, RV 6 mo. Long-term drug therapy 251661536 Z79.899 Z79.1 on MTX.; recent labs all OK. Repeat in 3 mo On NSAID: Low dose. discussed GI and CV risks. omeprazole qod.. Osteoarthr itis of knee 947318250 M17.9 M17.11 I suspect there is post inflammato ry degenerati ve arthritis involving the R knee. Has mild flexion contractur e on the R. Not red or warm. Slowly progressiv e sxs.Doesn' t want anything done at present.Mi ght be good candidate for trial Supartz. Active or passive immunization 681004764 Z23 Discussed new Shingrix vaccine. Wait until it has been out a little longer to be sure it is safe, then advise she get this. She will discuss with Dr Spivey in January. [id number] Elvis Castaneda Jr. , [facility], OFFICE [address] [facility] [place] [address] 11/07/2017 11:10:24 11/07/2017 12:29:59 Pain in throat 863245907 R07.0 [id number] MD WELLINGTON Gutierrez, [facility], OFFICE [address] [facility] [place] [address] 02/25/2018 13:10:05 02/25/2018 14:55:02 Adult health examination 400481803 Z00.00 see Risk Assessment and Lifestyle Change Counseling section above Counseling 373856009 Z71 .9 Screening mammography 24 896073 Z12.31 Ankylosing spondylitis 8517892 M45.0 Now on Embrel, MTX and prn NSAID, with rheum visits q6mos, prn steroid injections , labs q4mo. Primary pain sites R knee and R hip - positional , varies with amount of activity. No longer runs but walks, hikes. Rec PT for strengthen ing/balanc ing as already recommende d by Dr. Connolly. 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 Has done pelvic rehab.Disc ussed Benefiber and increase in hs magnesium. Sleep disorder 79404366 G47.9 due to joint pain and nocturia. Not interested in medication and already has good sleep hygiene. [id number] Jacqueline Connolly MD Rheumatol rhonda, [address] [place] [address] 04/06/2018 13:20:46 04/06/2018 13:40:15 Ankylosing spondylitis 3553675 M45.0 B27+ SpArth: Spondyliti s and periph arthropath y, systemic features. Started Enbrel September,. Also on MTX and peripheral synovitis well supressed. Very little current MSK pain on meds (aside from DJD knee). Can try going back to weekly Enbrel to see if it helps with knee (doubtful) . Check labs on MTX. Return for labs 3 mo, RV 6 mo. Prior TB, treated. On Enbrel. Check quantifero n gold. Knee pain 95663579 M25.5 69 Suspect significan t degree of post inflammato ry DJD. Check x ray. Has orthotic. should use them. Long-term drug therapy 425976058 Z79.899 Z79.1 on MTX.; recent labs all OK. Repeat in 3 mo On NSAID: Low dose. discussed GI and CV risks. omeprazole qod.. [id number] Cielo [place], [facility], OFFICE [address] [facility] [place] [address] 06/13/2018 08:40:22 06/15/2018 08:39:30 Active or passive immunization 696275900 Z23 [id number] Jacqueline Connolly MD Rheumatol rhonda, [address] [place] [address] 10/05/2018 08:00:58 10/05/2018 08:23:00 Ankylosing spondylitis [id number] M45.0 B27+ SpArth: Spondyliti s and periph arthropath y, systemic features. Started Enbrel September,. Also on MTX and peripheral synovitis well supressed. Very little current MSK pain on meds (aside from DJD knee). Can try going back to weekly Enbrel to see if it helps with knee (doubtful) . Check labs on MTX. Return for labs 3 mo, RV 6 mo. Prior TB, treated. On Enbrel. Check quantifero n gold. Osteoarthr itis of knee 454642709 M17.9 M17.11 I suspect there is post inflammato ry degenerati ve arthritis involving the R knee. Has flexion contractur e on the R. Not red or warm.Note apparent leg length difference . Slowly progressiv e sxs. Requests re-evaluat ion for orthotics at [facility]. Long-term drug therapy 172450031 Z79.899 Z79.1 on MTX.; recent labs all OK. Repeat in 3 mo On NSAID: Low dose. discussed GI and CV risks. omeprazole qod.. Take Naproxen with food. [id number] Sendy Spivey MD , [facility], OFFICE [address] [facility] [place] [address] 03/31/2019 10:06:52 04/16/2019 07:57:53 Adult health examination 016367493 Z00.00 see Risk Assessment and Lifestyle Change Counseling section above Continue 1000 units D3.Mammogr am due.Colono scopy is up to date.Revie wed vaccine recommenda tions - may get Shingrix despite being on MTX and Enbrel. Counseling 226998939 Z71 .9 Ankylosing spondylitis 5733858 M45.0 Now on Embrel, MTX and prn NSAID, with rheum visits q6mo, prn steroid injections , labs q4mo. Primary pain sites R knee and R hip and sacral - positional , varies with activity. Walks qd for exercise. Long-term drug therapy 426157865 Z79.899 Weaning dose MTX, on Enbrel. Gastroesop hageal reflux disease 155306958 K21.9 Has weaned from PPI without problems so far. Urge incon tinence of urine 62997358 N39.41 Reviewed diagnosis, treatment options. Hearing loss 99580548 H9 1.90 Does not desire hearing aids at this time. [id number] Jacqueline Cnonolly MD Rheumatol rhonda, [address] [place] [address] 04/05/2019 08:01:40 04/08/2019 15:39:35 Ankylosing spondylitis 1716295 M45.0 B27+ SpArth: Spondyliti s and periph arthropath y, systemic features. Started Enbrel September,. Also on MTX and peripheral synovitis well supressed. Very little current MSK pain on meds (aside from DJD knee). Continue Enbrel every 10 days. (she notes symptoms if she goes longer)Katharina ck labs on MTX. Return for labs 3 mo, RV 6 mo. Osteoarthr itis of knee 118070496 M17.9 M17.11 I suspect there is post inflammato ry degenerati ve arthritis involving the R knee. Has flexion contractur e on the R. Not red or warm.Note apparent leg length difference . Slowly progressiv e sxs, but not limiting enough to warrant surgical referral. Long-term drug therapy 742740357 Z79.899 Z79.1 on MTX.; recent labs all OK. Repeat in 3 mo On NSAID: Low dose. discussed GI and CV risks. omeprazole qod.. Take Naproxen with food. [id number] Mumtaz Espino DPM Podiatry, [address] [place] [address] 06/17/2019 09:18:02 06/17/2019 11:10:51 Onychomycosis 832176214 B35.1 Clinical evidence of fungus seen. Pt instructed to purchase formula 3 and apply to her toenails daily. She will purchase today. Depending on response to formula 3 decision will be made to either remove part or all of big toenail. All questions have been answered. RTC prn. Ingrowing toenail 288165 009 L60.0 Pain in toe 515895474 M7 9.633 [id number] Dee Laurent RN , [facility], OFFICE [address] [place] [address] 06/23/2019 06:54:11 06/23/2019 10:56:49 Active or passive immunization 651671458 Z23 [id number] Shaun Taylor MD , [facility], OFFICE [address] [place] [address] 07/18/2019 10:01:37 07/18/2019 10:40:34 Viral gastroenteritis 050045752 A08.4 [id number] Anirudh Yin MD , [facility], OFFICE [address] [place] [address] 07/19/2019 13:06:42 07/19/2019 17:08:14 Viral gastroenteritis 039791201 A08.4 persistent , r/o bacterial infection- -ok to take loperamide --felt much better after IV NS, ondansetro n helped for nausea. Diarrhea o f presumed infectious origin 23924077 A09 Dehydration 26386578 E86 .0 [id number] Sendy Spivey MD , [facility], OFFICE [address] [place] [address] 07/30/2019 10:30:53 07/31/2019 09:04:14 Salmonella gastroenteritis 32649077 A02.0 with partial response to cefixime. Since she is not taking Enbrel or methotrexa te, may switch over to preferred fluoroquin olone and will proceed to full course. [place], but has access to health facilities if needed. Discussed antibiotic treatment may result in prolonged asymptomat ic carrier state (she does not work in food services). Advised re: diet, proper hydration, signs and symptoms for which she should seek urgent treatment. f/u prn lack of resolution . [id number] Jacqueline Connolly MD Rheumatol rhonda, [address] [address] 10/05/2019 08:50:30 10/05/2019 09:28:41 Ankylosing spondylitis 2974762 M45.0 Non-radiog rraphic . (though last x rays several years ago).B27+ SpArth: Spondyliti s and periph inflammato ry arthropath y, systemic features.S tarted Enbrel September,. Also on MTX and peripheral synovitis well supressed. Very little current MSK pain on meds (aside from DJD knee). Recently stopped Enbrel and MTX for 2 months with only mild flare in sxs. Restart Enbrel (takes every 8 days).May hold MTX (but will resume if she has flare in sxs. ) Takes occasional Aleve at night. Takes with food. Suggested adding OTC Pepcid for GI protection . REturn 6 mo (Dr Francisco) but sooner if needed. Osteoarthr itis of knee 728765747 M17.9 M17.11 I suspect there is post inflammato ry degenerati ve arthritis involving the R knee. Has flexion contractur e on the R. Not red or warm.Note apparent leg length difference . Slowly progressiv e sxs, but not limiting enough to warrant surgical referral. Bilateral trochanteric bursitis [id number] 7455719 M70.61 M70.62 Findings of bilat trochanter ic bursitis.W akes her up at night.Offe red injections . Deferred for now, but will call if she changes her mind. Note: Patient slender. No ultrasound needed for injection. Active or passive immunization 545423479 Z23 Got Shingrix.p neumonia up to date. Osteopenia 587636582 M85 .80 T= -2.3.Repea t scan 2020 [id number] Mel Francisco MD Rheumatol carter, [address] [place] [address] 04/11/2020 09:12:46 04/12/2020 12:48:54 Ankylosing spondylitis 5751484 M45.0 Patient is off Enbrel and very symptomati c.Restarti ng Enbrel and the risks were discussed with patient. Patient to be careful, to use social distancing , mask and hygiene measures.P atient to restart enbrel. She will check on the Shingrix vaccine first, if she is getting it within the next week, she will postpone enbrel for 4 weeks.Side effects of naproxen also discussed with patient. leighton labs. [id number] MD WELLINGTON Gutierrez, [facility], OFFICE [address] [place] [address] 05/17/2020 08:10:42 05/17/2020 09:12:53 Adult health examination 473337596 Z00.00 see Risk Assessment and Lifestyle Change Counseling section above Counseling 568143077 Z71 .9 including cardiovasc ular risk reduction counseling Depression screening 171 798998 Z13.89 depression screening tool administer ed, entered into emr, scored and discussed, time greater than 7.5 minutes Screening for alcohol abuse 736618077 Z13.39 Screening mammography 24 702175 Z12.31 Urge incon tinence of urine 02612292 N39.41 Mixed hyperlipidemia 267 887549 E78.2 Ankylosing spondylitis 8898075 M45.9 Currently off medication s, about to restart. Allergic rhinitis 269721 04 J30.9 Manageable . [id number] MIRANDA Hilton, [facility], OFFICE [address] [facility] [place] [address] 05/20/2020 09:28:38 05/20/2020 11:05:42 Active or passive immunization 709717757 Z23 [id number] Mel Francisco MD Rheumatol [address] [place] [address] 07/18/2020 09:44:05 07/18/2020 12:52:38 Ankylosing spondylitis 2917952 M45.0 Continue Enbrel, decrease methotrexa te to 10 mg/week. Check labs for disease activity and medication toxicity (standing order).Pat ient to be careful, to use social distancing , mask and hygiene measures even at home as she lives with her grandchild rosi who go to school.Pat ient up to date on flu, pneumonia and shingrix vaccinatio n. [id number] Mel Francisco MD Rheumatol rhonda, [address] [place] [address] 11/15/2020 09:36:18 11/15/2020 19:51:51 Ankylosing spondylitis 2077868 M45.0 Continue Enbrel, decrease methotrexa te to 10 mg/week. Check labs for disease activity and medication toxicity (standing order). Patient up to date on flu, pneumonia and shingrix vaccinatio n. Patient got the first COVID dose. Counselled to hold methotrexa te one week after the second dose. Long-term drug therapy 158707134 Z79.890 Patient is on Enbrel and MTX. Continue folic acid. Monitor labs. Hold Enbrel if fever or sign of infection. Hyperlipidemia 05603118 E78.5 Following with PCP. On diet. Trochanter ic bursitis of left hip 2298903163 50646 M70.62 [id number] Mel Francisco MD Rheumatol rhonda, [address] [address] 01/31/2021 10:56:43 01/31/2021 14:52:37 Trochanteric bursitis of right hip 2430138762 44919 M70.61 Will inject with kenalog. [id number] Katey Workman LPN , [facility], OFFICE [address] [place] [address] 06/14/2021 07:01:21 06/14/2021 16:17:31 Active or passive immunization 060927930 Z23 [id number] Mel Francisco MD Rheumatol carter, [address] [address] 02/21/2022 09:57:48 02/21/2022 10:35:52 Ankylosing spondylitis 6215633 M45.0 Continue Enbrel, increase methotrexa te to 10 mg/week as patient went down to 7.5 mg weekly and became more symptomati c. Check labs for disease activity and medication toxicity (standing order). Patient up to date on flu, pneumonia and shingrix vaccinatio n. Patient got the COVID series.Pat ient to get flu shot in the fall. RTC in 4 months. Long-term drug therapy 723556700 Z79.899 Patient is on Enbrel and MTX. Continue folic acid. Monitor labs. Hold Enbrel if fever or sign of infection. Patient to have a full skin check at the dermatolog ist. She has seen them 2 years ago. Pain of [facility] knee joint 8501439530 21243 M25.561 Will inject with kenalog.Re michelle to PT. Bilateral bursitis of hips 4796650116 4030400 M70.71 M70.[address] Lemos, possible US guided injections ? [id number] Charlie Lemos MD Sports Medicine, [facility] [address] [facility] [place] [address] 03/26/2022 09:38:41 03/26/2022 13:22:07 Hip pain 99806861 M25.551 M25.552 Guillermo is a 71-year-ol d female with bilateral hip pain that I believe is likely due to trochanter ic pain syndrome. I reviewed this diagnosis with her today as well as discussing treatment. We discussed the importance of physical therapy, use of NSAIDs and Tylenol, corticoste roid injections , and surgery. Due to her pain she did undergo a left hip trochanter ic bursa corticoste roid injection under ultrasound guidance. She tolerated this well applicatio n. She will ice and rest over the next week and gradually resume normal activities . I have given her referral to physical therapy she can start in 7-10 days. Due to the prolonged nature of her symptoms I did ask that she have x-rays done of both hips after the office visit. She will plan to follow up with me as needed for further care. [id number] Ainsley gonzales, PT Physical Therapy, [address] [address] 04/25/2022 14:09:34 04/25/2022 15:36:07 Pain of right knee region 2110864377 96107 M25.337 [id number] Ainsley gonzales, PT Physical Therapy, [address] [address] 05/02/2022 13:01:16 05/02/2022 16:30:45 Pain of right knee region 7420863838 69232 M25.057 [id number] Ainsley gonzales, PT Physical Therapy, [address] [address] 05/16/2022 12:56:06 05/16/2022 13:37:10 Pain of right knee region 6714443462 38590 M25.297 [id number] Mel Francisco MD Rheumatol rhonda, [facility] [address] [facility] [address] 06/24/2022 09:23:23 06/24/2022 09:54:08 Ankylosing spondylitis 6907174 M45.0 Continue Enbrel, methotrexa te and folic acid. Check labs for disease activity and medication toxicity. Patient got the COVID booster and the flu shot. Patient is aware that I am leaving the practice and will contact the rheumatolo gy practices listed on the letter to get an appointmen t. Long-term drug therapy 885453372 Z79.899 Patient is on Enbrel and MTX. Continue folic acid. Monitor labs. Hold Enbrel if fever or sign of infection. Patient had a full skin check at the dermatolog ist. She will be following- up with them. Pain of [facility] knee joint 4643479785 05916 M25.561 Continue with PT as it is helping. Bilateral bursitis of hips 6109717073 2510469 M70.71 M70.[address] Lemos for another injection. [id number] Ainsley gonzales, PT Physical Therapy, [facility] [address] [place] [address] 05/30/2022 10:30:26 05/30/2022 11:03:34 Pain of right knee region 2603157090 27029 M25.862 [id number] DO WELLINGTON Chapa, [facility], OFFICE [address] [place] [address] 05/31/2022 09:02:52 05/31/2022 16:16:36 Adult health examination 723985335 Z00.00 see Risk Assessment and Lifestyle Change Counseling section above - generally very healthy and up to date with health maintenanc e. Encouraged to continue healthy habits and follow-up annually, sooner as needed. Colonoscop y - 2016 (10 yr recall), Will schedule mammo at [facility] (Due 09/2022). Deferred Td for today but will get at next visit Counseling 488056164 Z71 .9 including cardiovasc ular risk reduction counseling Depression screening 171 252877 Z13.31 depression screening tool administer ed, entered into emr, scored and discussed, time greater than 7.5 minutes Screening for alcohol abuse 594899868 Z13.39 discussed - no concerns Vaccine de clined by patient 5767249655 02 Z28.21 declined for today will be getting flu & booster tomorrow Screening mammography 24 869585 Z12.31 pt to schedule at [facility] Ankylosing spondylitis 5456080 M45.0 Stable - followed by rheum and has appt next month 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 Tried meds but didn't like them - does kegels and feels can live with sx Chronic constipation 236 798414 K59.09 manages with diet [id number] Deborah Kurtz NP FP, [facility], OFFICE [address] [facility] [place] [address] 06/27/2022 14:27:34 06/28/2022 06:53:44 Active or passive immunization 162378290 Z23 [id number] Ainsley gonzales, PT Physical Therapy, [facility] [address] [place] [address] 07/04/2022 09:15:16 07/05/2022 08:08:54 Pain of right knee region 2519765875 85426 M25.808 [id number] Cindy Ryder PA-C FP, [facility], OFFICE [address] [place] [address] 01/08/2023 09:41:06 01/08/2023 11:58:44 Acute upper respiratory infection 34746897 J06.9 Symptoms ongoing x 3 days.Had fevers first 2 days, none today. Continue to monitor.CO VID tested negative.D iscussed likely viral given grandson and both sick last week as well.Viral URI is a self limited condition that runs it's course about 7-10 days.For symptoms relief we discussed management with: sinus rinses, flonase (pt has), mucinex can help break up the mucus (this may increase post nasal drainage). Return for office visit if symptoms not improving or worsening. [id number] Maureen Mahajan MD FP, [facility], OFFICE [address] [place] [address] 06/06/2023 13:35:03 06/06/2023 14:48:58 Adult health examination 591062442 Z00.00 see Risk Assessment and Lifestyle Change Counseling section above - generally very healthy and up to date with health maintenanc e. Encouraged to continue healthy habits and follow-up annually, sooner as needed. Colonoscop y - 2017 (10 yr recall), Depression screening 171 377718 Z13.31 depression screening tool administer ed Screening for alcohol abuse 814797648 Z13.39 Alcohol use screening tool administer ed Osteopenia 462813477 M85 .89 due for bone density - will get at [facility] which is where her rheumatolo gist is located Ankylosing spondylitis 6712943 M45.0 Stable - followed by rheum and on Enbrel and methotrexa te - labs done q 4 mos - will call rheum to get ov notes and lab results Degenerati ve joint disease of hand 54680349 M19.049 Arthritis hands/knee s - stable Major depr ession, melancholic type 919244357 F32.9 Situationa l related to marital stress. Pt engaged in therapy. Discussed if sx not settling down, could consider medication . Pt to f/u prn [id number] Maureen Mahajan MD , [facility], OFFICE [address] [place] [address] 12/18/2023 08:49:16 12/18/2023 09:09:21 Major depressive disorder 432672604 F32.9 pt contracted for safety, advised of crisis services availables tart sertraline 50 mg dailyfollo wup 2-3 weeks me or BGcall if concernsdi scussed use/SE/exp ectations [id number] Maureen Mahajan MD , [facility], OFFICE [address] [place] [address] 01/01/2024 09:45:08 01/01/2024 10:00:33 Major depressive disorder 099723394 F32.9 pt contracted for safety, advised of crisis services availablei ncrease sertraline to 100 mgfollowup 2 weeksconti nue with counsellin gcall if concerns [id number] Maureen Mahajan MD , [facility], OFFICE [address] [place] [address] 01/15/2024 08:27:26 01/16/2024 09:22:21 Major depressive disorder 988641433 F32.9 pt feels good at this dose, doesnt wish to increaseof fered followup, declined at this timecontin ue with counseljoellen liz if concerns [id number] Ana Rosa Gregg NP , [facility], OFFICE [address] [place] [address] 02/06/2024 13:56:08 02/09/2024 13:24:05 Acute conjunctivitis 44679139 H10.33 discussed prev of transmissi on to others.rain ps as directed - report persistent or inc sx.advised re UC hours on weekend and night call. Pain in throat 410391913 R07.0 Streptococ yohan sore throat 18139338 J02.0 treat strep with Keflex (PCN interactio n with MTX) - call if sx persist or increasead vise close contacts. [id number] Maureen Mahajan MD , [facility], OFFICE [address] [place] [address] 06/07/2024 10:00:19 06/07/2024 10:57:55 Adult health examination 780529923 Z00.00 Depression screening 171 180523 Z13.31 depression screening tool administer ed Screening for alcohol abuse 761836522 Z13.39 Alcohol use screening tool administer ed Major depr essive disorder 843141442 F32.9 related to 's infidelity continue sertraline , trial back down to 100mg dosecontin ue w/ therapyf/u prn Advance di rective discussed with patient 188773546 Z71.89 Advanced Care Planning 1. Advanced care planning was discussed for {{less than* more than}} 15 minutes. 2. Participan ts included {{patient* patient and family pat ient's family pat ient's surrogate} } and they were given an opportunit y to decline discussion . 3. Health Care Proxy {{was* was not}} discussed. 4. Patient {{has* has not}} completed Health Care Proxy form. {{It was It was not*}} given to take home. 5. Names(s) relationsh ip(s) of Health Care Proxy: 6. MOLST {{was* was not}} discussed. 7. Patient {{has has not*}} completed MOLST form. 8. Details of discussion : was given for pt to take home and consider 9. Follow up needed: prn Mixed hyperlipidemia 267 624807 E78.2 Ankylosing spondylitis 8059296 M45.0 in care w/ rheumconti nue enbrel and methotrexa te Osteopenia 063340257 M85 .80 continue w/ weekly alendronat emanaged by rheumstart ed tx 09/2023 [id number] DO WELLINGTON HOLGUIN, [facility], OFFICE [address] [place] [address] 06/15/2024 09:15:04 06/16/2024 11:09:25 Insect bite, nonvenomous, of chest wall 112598512 S20.96XA You have had a deer tick bite that qualifies for a one-time dose of doxycyclin e. This will decrease the chance of getting a tick related illness but not eliminate it completely . Please take both pills at the same time. Please follow up if you develop any symptoms of fever, chills, rash, headache or other new symptoms in the next 6 weeks. Tick bite 60543503 W57.X XXA SEE ABOVE FOR MORE INFORMATIO N. CHANGE DIAGNOSIS TO W57.XXD IF SUBSEQUENT . Health Concerns Section Related Observation LastModified by Organization Detai ls LastModified Time None Recorded Concern Status LastModified by Organization Details LastModified Time None Recorded Advance Directives Directive Y: Payers Encounter Date Sequence Insurance Name Policy Number Policy Baez Covered Member ID Baez Member ID Guarantor Name 01/01/2024 1 [facility]: MEDICARE HMO BLUE (MEDICARE REPLACEMENT HMO) [id number] Guillermo Strong [id number] Guillermo Strong 01/15/2024 1 [facility]: MEDICARE HMO BLUE (MEDICARE REPLACEMENT HMO) [id number] Guillermo Strong [id number] Guillermo Strong 02/06/2024 1 [facility]: MEDICARE HMO BLUE (MEDICARE REPLACEMENT HMO) [id number] Guillermo Strong [id number] Guillermo Strong 06/07/2024 1 [facility]: MEDICARE HMO BLUE (MEDICARE REPLACEMENT HMO) [id number] Guillermo Strong [id number] Guillermo Strong 06/15/2024 1 [facility]: MEDICARE HMO BLUE (MEDICARE REPLACEMENT HMO) [id number] Guillermo Strong [id number] Guillermo Strong Notes Date Note Type Note Provider Name and Address Organization Details Recorded Time 01/01/2024 text/html 01/01/24for follow up depression. First week on med felt more even, this past week not so much. Not sleeping, eating. Has asked to leave. Has family support. Seeing therapist and marriage counsellorSI but no plan, contracts for safety i would not do that to my kids when too much, goes outside and throws rocks, hits trees with sticks, etc. Maureen Mahajan MD [address] [place] [address], [phone], [facility] 01/01/2024 10:00:53 01/15/2024 text/html 01/15/24 for followup depression. feeling more stable, less traumatized. No crying in 2 weeks No side effects. Maureen Mahajan MD [address] [place] [address], [phone], [facility] 01/15/2024 08:41:13 02/06/2024 text/html Pt here today fo r c/o conjunctivitis sx's x 1 week , states has been ongoing 10 days, had a bad sore throat initially that improved with saline gargles.crusting both eyes - has to clean them off during the night when she gets up to bathroom.no contact lenses or makeup Ana Rosa Gregg NP [address] [place] [address], [phone], [facility] 02/06/2024 14:51:17 06/07/2024 text/html Physical Exam/FemaleReported bypatient.PHAPatient is here for a Wellness Visit. She describes her health status as fair. Patient's health is the same as last year.Risk Assessment and Lifestyle Change Counseling (Medicare)Reported bypatient.Coronary Artery Disease Risk Assessment:No Family history of coronary artery disease; No personal history of diabetes; No history of peripheral vascular disease, AAA, or carotid disease; No personal history of coronary artery disease Breast Cancer Risk Assessment:No family history of breast cancer; No history of breast cancer or dcis Colon Cancer Risk Assessment:Family history of pre cancerous colon polyps or colon cancer; maternal grandmother Lung Cancer Risk Assessment:Has used cigarettes less than 30 pack years;Former smoker quit more than 15 years ago; No asbestos exposure; Smoked from age 19 to age 20, quit 50 years ago. Fracture Risk Assessment:No unexplained fracture; No use of corticosteroids; No anti-seizure medication;Abnormal bone density osteopenia(T -2.3 in 2017); Has adequate calcium intake; Taking Vitamin D supplement; No chronic use of proton pump inhibitors Cognitive/Behavioral Risk Assessment:No personal history of mental illness; No family history of mental illness Safety Risk Assessment:No grab bars in bathroom; Has rails on steps; No evidence of abuse/neglect; Do you feel safe in your current relationship?YES; Have you ever been a victim of physical/emotional/se xual abuse?NO Functional Status:Patient has trouble hearing the television or radio when others do not.;Patient has to strain or struggle to hear/understand conversations.; Patient does not need help with preparing meals, transportation, shopping, taking medicine, managing finances, or other activities of daily living.; Patient does not have visual loss that interferes with daily activities; Does not live alone; Patient was not unsteady and did not take longer than 30 seconds during the timed get up and go test.; Patient reports no falls in the past 6 months. Diet:Counseled about appropriate portion size; Counseled about the importance of maintaining a positive calcium balance and taking 1000 iu Vitamin D daily. Exercise counseling:Discussed the importance of daily physical activity; Discussed the importance of weight bearing exercise; Active - likes to walk for exercise Safety:Counseled about protecting skin from the sun and lowering the risk of skin cancer; Counseled about avoiding excessive and unsafe alcohol intake; Counseled about use of seat belts; Counseled about fall risk from throw rugs and the need for hand rails on steps and in bath 06/07/2023 Wellness Visit Concerns:1. Depressedlast year she found out her had an affair with a colleague x 26 yearsseeing a therapist individually and couples therapystarted sertraline 6 mos ago and increased dose 1 mos agopoor appetite, poor sleep, angersometimes cant get out of bedwondering if inc sertraline dose is a bit too much, little groggy R TKR scheduled 10/12/23feeling better after recent cortisone shot [facility] skin checks 2 daughters, 3 grandchildren exercise - yoga and strength training, walking Mammo: 4Colonoscopy: 05/23/2017Bone Density: 07/10/2023 Recent Labs: none Proxy in chart dated 08/18/2017MOLST not in chart Marueen Mahajan MD [address] [place] [address], [phone], [facility] 06/10/2024 12:18:18 06/15/2024 text/html Tick BiteReporte d bypatient.Location:he ad; face Duration:has noted for <2 days Ticktick engorged Pt presents for ? tick bite on L foreheadNoticed first yesterdayDenies lyme sx - fever, chills, body aches, etc. GUERRERO VUONG DO [address] [place] [address], [phone], [facility] 06/16/2024 07:58:16 OBGyn Episode No OBEpisode recorded.
[2024-09-21 13:19] LABS: Alanine Aminotransferase 21 U/L (0-31); Albumin Level 4.2 g/dL (3.5-5.0); Alkaline Phosphatase 56 U/L (39-117); Anion Gap 9 (12-20); Aspartate Amino Transferase 24 U/L (5-31); Bilirubin Total 0.5 mg/dL (0.0-1.0); Blood Urea Nitrogen 21 mg/dL (9-16); Calcium 8.8 mg/dL (8.4-10.2); Carbon Dioxide 31 mmol/L (22-29); Chloride 106 mmol/L (96-108); Estimated Glomerular Filt Rate > 60; Glucose Random 107 mg/dL (60-115); Potassium 3.7 mmol/L (3.3-5.1); Sodium 142 mmol/L (135-145); Total Protein 7.3 g/dL (6.5-8.0)
[2024-09-21 13:45] LABS: Erythrocyte Sedimentation Rate 4 MM/HR (0-20)
== END 2024-09-21 11:29 | disposition home or self-care (01) ==
LOC: HO.10HDL 11:28
PROVIDERS: Visit Provider Student in an Organized Health Care Education/Training Program
DX: M45.9 Ankylosing spondylitis of unspecified sites in spine (principal); Z79.899 Other long term (current) drug therapy
CPT/HCPCS: 36415; 80053; 85025; 85652; 86140

== ENCOUNTER 2025-02-01 11:05 | Outpatient (REF) | payer MEDICARE, SELFPAY ==
[2025-02-01 13:56] LABS: MANUAL DIFF FLAG NO
[2025-02-01 14:05] LABS: Basophils Absolute Auto 0.1 X10*3/uL (0.0-0.2); Basophils Percent Auto 1.7 % (0-2); Eosinophils Absolute Auto 0.1 X10*3/uL (0.0-0.4); Eosinophils Percent Auto 3.2 % (0-4); Hematocrit 37.5 % (37.0-47.0); Hemoglobin 12.4 g/dl (12.0-16.0); Lymphocytes Absolute Auto 1.9 X10*3/uL (1.2-4.9); Lymphocytes Percent Auto 46.1 % (20-40); Mean Corpuscular HGB Conc 33.1 g/dl (31.0-35.0); Mean Corpuscular Volume 93.8 fL (80.0-98.0); Monocytes Absolute Auto 0.4 X10*3/uL (0.1-1.2); Monocytes Percent Auto 8.8 % (2-11); Neutrophils Absolute Auto 1.7 x10*3/uL (2.0-8.3); Neutrophils Percent Auto 40.2 % (45-73); Platelet Count 265 X10*3/uL (160-400); Red Cell Distribution Width 13.3 % (11.0-16.0); White Blood Count 4.1 X10*3/uL (4.8-10.8)
[2025-02-01 14:37] LABS: Alanine Aminotransferase 22 U/L (0-31); Albumin Level 4.3 g/dL (3.5-5.0); Alkaline Phosphatase 57 U/L (39-117); Anion Gap 10 (12-20); Aspartate Amino Transferase 27 U/L (5-31); Bilirubin Total 0.8 mg/dL (0.0-1.0); Blood Urea Nitrogen 15 mg/dL (9-16); C Reactive Protein < 0.10 mg/dL (< or = 0.50); Calcium 9.3 mg/dL (8.4-10.2); Carbon Dioxide 31 mmol/L (22-29); Chloride 106 mmol/L (96-108); Estimated Glomerular Filt Rate > 60; Glucose Random 88 mg/dL (60-115); Potassium 3.8 mmol/L (3.3-5.1); Sodium 143 mmol/L (135-145)
[2025-02-01 14:42] LABS: Erythrocyte Sedimentation Rate 5 MM/HR (0-20)
[2025-02-03 04:26] LABS: HBS Num1 59.98 mIU/mL (0-7.99); HBc Num1 0.07 S/CO (0.00-0.79); HBsAGNum1 0.24 S/CO (0.00-0.99); Hepatitis A Antibody IgM 0.16 Index (0-0.79); Hepatitis B Core Antibody Nonreactive (Nonreactive); Hepatitis B Surface Antigen Negative (Negative); ~HepC Num1 0.15 S/CO (0.00-0.79); ~Hepatitis A Antibody IgM Nonreactive (Nonreactive); ~Hepatitis B Surface Antibody REACTIVE (Nonreactive); ~Hepatitis C Antibody Nonreactive (Nonreactive)
[2025-02-04 08:19] LABS: TS Negative Control Passed; TS Panel A 2; TS Panel B 6; TS Positive Control Passed; TSpotTB Borderline (Negative)
[2025-02-07 14:58] LABS: Vitamin D 25-OH, D2 <4 ng/mL; Vitamin D 25-OH, D3 44 ng/mL; Vitamin D 25-OH, Total 44 ng/mL (30-100)
== END 2025-02-01 11:06 | disposition home or self-care (01) ==
LOC: HO.10HDL 11:05
PROVIDERS: Visit Provider Student in an Organized Health Care Education/Training Program
DX: M45.9 Ankylosing spondylitis of unspecified sites in spine (principal); E55.9 Vitamin D deficiency, unspecified
CPT/HCPCS: 36415; 80053; 82306; 85025; 85652; 86140; 86481; 86704; 86706; 86709; 86803; 87340

== ENCOUNTER 2025-02-09 13:01 | Outpatient (AMB) | payer MEDICARE, SELFPAY ==
--- NOTE | 2025-02-09 13:12 | A.OFFVIS_ITS ---
Vital Signs 02/09/25 13:15 Height 5 ft 7 in Weight 130 lb 1.164 oz BMI 20.4 BP 115/60 Blood Pressure Location Lt brachial Position Sitting Pulse 75 Pulse Source Pulse Oximeter Pulse Oximetry (%) 97 Oxygen Delivery Method Room Air Intake Visit Reasons: Intake Note: Patient presents for follow up. Allergies codeine Allergy (Intermediate, Verified 02/09/25 13:15) NAUSEA/VOMITING isoniazid Allergy (Intermediate, Verified 02/09/25 13:15) LFT ABNORMALITY cephalexin Allergy (Mild, Verified 02/09/25 13:15) Hives HPI Comments Details: Patient is a 74-year-old female with history of latent TB status post INH treatment in 2009, ankylosing spondylitis, polyarticular osteoarthritis, and osteopenia with high fracture index here today for follow up Interval History: Patient last seen 05/23/[address] New. At that time she was following up for her HLA B27 positive ankylosing spondylitis on methotrexate 4 tabs weekly, Enbrel 50 mg every 8 days and folic acid. She reports that she was doing well except for her right knee osteoarthritis which had become worse. Based on her exam she was evaluated I will be in remission and advised to decrease her methotrexate to 7.5 mg weekly Patient has been doing well on the decrease of 7.5mg No flares of her ankylosing spondylitis Complaining of right knee pain today Rheumatologic History: HLA B27 positive, diagnosed 2009 - She was initially diagnosed with PMR in 2006 and symptoms appropriately responded to steroids however she developed peripheral arthritis, she was then diagnosed as HLA B B27 positive ankylosing spondylitis and started on Enbrel, soon after methotrexate was added due to recurrent right knee effusion. Enbrel started 2009 Methotrexate added 2010 Initial history: This is a 72-year-old female presents for evaluation of HLA B27 positive spondylitis as a new patient. Her previous gambreler helper left the practice. The condition started in 2006 and was initially diagnosed as PMR, symptoms appropriately responded to prednisone however once prednisone was tapered patient developed peripheral arthritis. In 2009 she was diagnosed as HLA B27 positive spondylitis. She was started on Enbrel with good response however she developed recurrent right knee effusion and methotrexate was added. She has been on Enbrel and methotrexate since 2010 with relatively good control of her symptoms. No history suggestive of uveitis or inflammatory bowel disease. Patient's main complaint today is right knee pain. Patient has had chronic right knee pain. She has had about 7 intra-articular cortisone injections in the past which provided some relief. Last injection was in June which gave her relief for 6-8 weeks. She has been going to physical therapy for her knee for 3 months during the fall without improvement. She has difficulty walking. She also was diagnosed with bilateral hip trochanteric bursitis and received steroid injections in the past which do provide some relief. Current Rheumatology Medication(s): Alendronate 70 mg weekly Methotrexate 7.5 mg weekly Folic acid 0.8 mg daily Etanercept 50 mg every 8 days [facility] Medical History On retirement drug therapy Urge incontinence Sleep disorder Ankylosing spondylitis DJD (degenerative joint disease) Constipation GERD (gastroesophageal reflux disease) Allergic rhinitis IBS (irritable bowel syndrome) Surgical History No history of previous surgery Family History Mother Diabetes CVA (cerebral vascular accident) Arthritis Father Dementia Rheumatoid arthritis Maternal Grandmother Colon cancer Paternal Grandfather Heart disease Paternal Grandmother No problems noted. 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 Systems Const Details: Review of Systems Constitutional: Denies fever, chills, weight loss ENT: Denies vision changes, eye pain or eye redness, dental caries, dry mouth GI: Denies nausea, vomiting, diarrhea, abdominal pain, change in BM Pulm: Denies SOB, MATTSON, hemoptysis, wheezing Cards: Denies chest pain, palpitations Skin: Denies Raynaud's, rash, nail changes, photosensitivity, EMERGENCY MEDICINE SPECIALIST: Denies headaches, weakness, paresthesias, recurrent falls MSK: as per HPI All other systems reviewed and are unremarkable except noted above Physical Exam Vital Signs: Last Vital Signs Pulse 75 02/09/25 13:15 BP 115/60 02/09/25 13:15 Pulse Ox 97 02/09/25 13:15 Oxygen Delivery Method Room Air 02/09/25 13:15 BMI result Body Mass Index 20.4 Vital signs reviewed Physical Examination CONSTITUITIONAL Patient alert and cooperative. Well appearing and in no apparent painful distress. Thin HEENT Conjunctiva and sclera clear. ?Pupils equal round and reactive to light. ?No lymphadenopathy. ? CHEST/RESPIRATORY SYSTEM Normal respiratory effort and able to speak in complete sentences. ?Clear to auscultation bilaterally. ?No crackles, rales, rhonchi, wheezes heard. CARDIAC SYSTEM Regular rate and rhythm. ?S1 and S2 heard no murmurs. ?Radial pulses intact bilaterally MSK Hands: ?Able to make a fist. No synovitis noted to the MCPs, PIPs or DIPs. ?No tenderness to palpation of these joints. [place] nodes noted Wrists: ?Full range of motion at the wrists without pain. ?No tenderness to palpation or synovitis noted to the wrists. Elbows: Full range of motion without pain. No tenderness, weakness, swelling, increased warmth or erythema. Shoulders: Decreased passive range of motion bilaterally up to about 110 degrees. No tenderness to palpation of the AC joints or subacromial bursa Knees: ?Full range of motion. ?No tenderness, swelling, increased warmth or erythema.? Crepitations felt to the right knee. Ankles: Full range of motion. ?No tenderness, swelling, increased warmth or erythema.? Feet: ?Negative squeeze test. ?No tenderness to palpation or swelling of the MTPs. Tender points:?No tenderness to palpation of the bilateral trapezius, supraspinatus, greater trochanters, anterior costochondral junctions, bilateral gluteal areas, bilateral suboccipital muscle insertions SKIN Skin intact without rashes. Office Procedures AMB Joint Injection/Aspiration Joint Injection/Aspiration Details: Procedure was explained to the patient and consent was obtained. ? The area of interest was identified and confirmed with patient. ?This was subsequently cleaned with chlorhexidine x3. ? The area was then anesthetized using ethyl chloride spray. 40 mg Kenalog with 1 cc 1% lidocaine was injected without issue. ?Minimal to no bleeding. ?Patient tolerated procedure. Primary Site: right knee Prep: site was prepped using aseptic technique and ethochloride spray was applied Injected: 40 mg of, Kenalog, with 1 mL of, 1% plain lidocaine and in the joint Approach Used: anterior Procedure: The patient tolerated the procedure well Coding 61840 - Large joint Procedure code (CPT) selection complete Office Meds lidocaine (PF) 10 mg/mL (1 %) injection solution Performing Provider: Deedee Plunkett MD Performing Location: [facility] [place] Administered by: Deedee Plunkett MD on 02/09/25 14:16 Dose Route Admin Location Dispensed Lot Number Expiration Date [place] Senior Medical Director 1 mL Infiltration right knee 2 mL [id number] 10/30/26 69866-240-35 [facility] Kenalog 40 mg/mL suspension for injection Performing Provider: Deedee Plunkett MD Performing Location: [facility] [place] [facility] Administered by: Deedee Plunkett MD on 02/09/25 14:16 Dose Route Admin Location Dispensed Lot Number Expiration Date [facility] Senior Medical Director 40 mg intra-articular right knee 1 mL [id number] 11/30/25 [address]-3 ERIKA PRITCHARD PHAR Results Reviewed Results Reviewed: Laboratory Tests 02/01/25 11:10 WBC 4.1 L RBC 4.00 L Hgb 12.4 Hct 37.5 Plt Count 265 ESR 5 Sodium 143 Potassium 3.8 Chloride 106 Carbon Dioxide 31 H BUN 15 Creatinine 0.57 AST 27 ALT 22 C-Reactive Protein < 0.10 25-OH Vitamin D Total 44 Laboratory Tests 02/01/25 11:10 Hepatitis A IgM Ab Nonreactive Hep Bs Antigen Negative Hep Bs Antibody REACTIVE Hep B Core Total Ab Nonreactive Hepatitis C Ab (EIA) Nonreactive TB Test (T-Spot) Com Borderline A XR Bilateral Knees 10/2022 FINDINGS: RIGHT KNEE: There is marked asymmetric narrowing of the lateral joint space compartment. The medial and patellofemoral compartments are well-maintained. There is tricompartment peripheral osteophyte formation. No fracture or dislocation is seen. There is a small joint effusion. There is no foreign body. LEFT KNEE: Bony mineralization is normal. There is symmetric mild narrowing of the lateral and medial joint space compartments. The patellofemoral compartment shows mild narrowing and articular surface irregularity. No fracture, dislocation or joint effusion is seen. There is no foreign body. IMPRESSION: 1. There is tricompartment osteoarthritic change of the right knee, most pronounced of the lateral joint space compartment, where it is severe. 2. There is a small right knee joint effusion. 3. There is mild tricompartment osteoarthritic change of the left knee. DEXA 07/2023 FINDINGS: LEFT FEMUR, NECK: BMD 0.723 g/cm2, Z-score -0.3, T-score -2.3, osteopenia. LEFT FEMUR, TOTAL: BMD 0.808 g/cm2, Z-score 0.2, T-score -1.6, osteopenia. AP SPINE L1-L4: BMD 1.107 g/cm2, Z-score 1.4, T-score -0.6, normal. 10-YEAR FRACTURE RISK PREDICTION, FRAX: Major osteoporotic fracture (clinical spine, forearm, hip or shoulder) 15.4%. Hip fracture 4.5% Assessment & Plan Assessment & Plan (1) Ankylosing spondylitis: Comment: HLA B27 positive, diagnosed 2009 Enbrel started 2009 Methotrexate added 2010 Code(s): M45.9 - Ankylosing spondylitis of unspecified sites in spine Category: Medical Qualifiers: Ankylosing spondylitis location: unspecified site of spine Qualified Code(s): M45.9 - Ankylosing spondylitis of unspecified sites in spine Plan: #Ankylosing spondylitis Patient is a 74-year-old female with HLA B27 ankylosing spondylitis here today for follow up. Currently in remission on Enbrel and methotrexate. Plan - Enbrel 50mg every 8 days SC - Methotrexate 7.5mg weekly - Folic acid 0.8mg daily - RTC 5 months - Labs before visit: CBC, CMP, ESR, CRP (2) Osteopenia with high risk of fracture: Comment: DEXA 07/2023. AP Spine -0.6, Left femur neck -2.3, Left femur total -1.6. FRAX 15.4/4.5 Alendronate 08/2023 Code(s): M85.80 - Other specified disorders of bone density and structure, unspecified site Category: Medical Plan: #Osteopenia Currently on alendronate therapy and tolerating medication. No falls or fractures Plan - Vit D supplementation - Alendronate 70mg PO weekly - DEXA 07/2025 (3) Bilateral primary osteoarthritis of knee: Code(s): M17.0 - Bilateral primary osteoarthritis of knee Category: Medical Plan: #Bilateral knee OA Especially in the right knee. Status post steroid injection today. Had a very long discussion with patient about the risks and benefits associated with knee replacement. Answered all her questions (4) Encounter for monitoring of etanercept therapy: Code(s): Z51.81 - Encounter for therapeutic drug level monitoring; Z79.620 - MCC (current) use of immunosuppressive biologic Plan: #Long-term Use of TNF Inhibitors: Etanercept Discussed with the patient the benefits and risks of TNF inhibitors for the management of the rheumatic condition Benefits include reduce pain, maintenance of remission and reduction of flares as well as ?progression of the disease Risks include injection sites/infusion reactions, serious infections (such as bacterial infections, opportunistic infections), malignancy, delaminating syndromes, autoimmune phenomena, CHF exacerbations, palmar plantar psoriasis and cytopenias Recommended rotating injection sites, and holding medication during and for up to 1 week after resolution of a febrile illness or open skin wound (5) Encounter for methotrexate monitoring: Code(s): Z51.81 - Encounter for therapeutic drug level monitoring; Z79.631 - roasterman (current) use of antimetabolite agent Plan: #Long-term Current Use of Methotrexate Discussed with patient the benefits and risks of methotrexate for managing their rheumatic condition Benefits include reduced pain, reduced mortality, maintenance of remission and reduction of flares Risks include oral ulcers, photosensitivity, hepatotoxicity, hematologic toxicity, pneumonitis, flu-like symptoms (especially day after administration), nodulosis, lymphomas ? Limit alcohol and avoid Bactrim ? Monitoring: ?CBC, BMP, LFTs every 3-4 months and hepatitis serologies as needed Plan I spent 40 minutes reviewing the record and labs, taking a history, examining the patient, discussing the treatment plan and answered all questions, ordering diagnostic work up and documenting in the medical record Orders: Orders Complete Blood Count Auto Diff 5 Months M45.9 - Ankylosing spondylitis of uns pecified sites in spine Erythrocyte Sedimentation Rate 5 Months M45.9 - Ankylosing spondylitis of unspecified sites in spine Vitamin D 25-OH Total 5 Months E55.9 - Vitamin D deficiency, unspecified AMB Joint Injection/Aspiration Today M17.11 - Unilateral primary osteoarthritis, right knee Comprehensive Met. Panel 5 Months M45.9 - Ankylosing spondylitis of unspecified sites in spine C Reactive Protein 5 Months M45.9 - Ankylosing spondylitis of unspecified sites in spine Medications: New lidocaine (PF) 1 mL Infiltration ONCE 2 mL 0RF M17.11 - Unilateral primary osteoarthritis, right knee Kenalog (triamcinolone acetonide) 40 mg intra-articular ONCE 1 mL 0RF NS M17.11 - Unilateral primary osteoarthritis, right knee Coding Level of Care Code Est Pt Level 5 (56937) Complex EM visit Add On G2211 Diagnoses Ankylosing spondylitis, unspecified site of spine M45.9 Ankylosing spondylitis location: unspecified site of spine Osteopenia with high risk of fracture M85.80 Bilateral primary osteoarthritis of knee M17.0 Encounter for monitoring of etanercept therapy Z51.81; Z79.620 Encounter for methotrexate monitoring Z51.81; Z79.631 CPT Codes Coding - 46352 Large joint: 51341 - Large joint ([id number])
[2025-02-09 13:15] VITALS: BP 115/60; PULSE 75; O2SAT 97; BMI 20.4
--- OUTSIDE RECORDS SUMMARY | 2025-02-09 14:37 | XMS_ITS | Data Portability ---
Author Organization 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, [address], [place], [address], 06/08/2024 14:45:07 rapid strep group A, throat [address] [facility], [address], [place], [address], 02/07/2024 08:01:33 Referral None recorded. Procedures None recorded. Surgeries None recorded. Imaging None recorded. Medication Orders doxycycli ne hyclate 100 mg tablet 2023 RONEN Hayley [address] ([facility]27), [address], [place], [id number], 06/15/2024 09:41:43 cephalexi n 500 mg capsule 2023 [place] [address] ([facility]), [address], [place], [id number], 06/07/2024 10:04:43 polymyxin B sulfate 10,000 unit-trim ethoprim 1 mg/mL [facility] [address] [address], [place], [id number], 06/07/2024 10:05:31 sertralin e 100 mg tablet 2023 [place] [address] ([facility]), [address], [place], [id number], 12/27/2024 07:51:52 Patient TargetsNo targets recorded. Patient Instructions Encounter Date Encounter Id Patient Instructions Last Modified By Organization Details Last Modified Time 06/15/2024 [id number] Discussed cain martínez knowledge of tick-related illness. Given no symptoms of systemic illness, we will treat with doxycycline 200mg prophylactically. Patient instructed to monitor for any new rash, fevers, headaches, or body aches for the next [address] [facility] with any concerns. Discussed sensitivity to sun with doxycycline. odinis Not available 06/15/2024 09:20:13 Reason for Referral None Reported. Results Created Date Observation Date Name Description Value Unit Range Abnormal Flag Note LastModifiedBy Organization Detail LastModifiedTime 02/06/20 24 02/06/2024 POCST REP strep A POC POSITI VE positive Not Available [facility] [address] [place] [address], [address], 02/06/2024 14:20:09 06/07/20 24 06/07/2024 CBC WBC 5.69 K/? ? ?L 3.98-1 0.04 Not Available [address], [address], 06/07/2024 12:25:36 06/07/20 24 06/07/2024 CBC RBC 4.27 M/? ? ?L 3.93-5 .22 Not Available [address], [address], 06/07/2024 12:25:36 06/07/20 24 06/07/2024 CBC HGB 12.9 g/dL 11.2-1 5.7 Not Available [address], [address], 06/07/2024 12:25:36 06/07/20 24 06/07/2024 CBC HCT 40.0 % 34.1-4 4.9 Not Available [address], [address], 06/07/2024 12:25:36 06/07/20 24 06/07/2024 CBC MCV 93.7 fL 79.4-9 4.8 Not Available [address], [address], 06/07/2024 12:25:36 06/07/20 24 06/07/2024 CBC MCH 30.2 pg 25.6-3 2.2 Not Available [address], [address], 06/07/2024 12:25:36 06/07/20 24 06/07/2024 CBC MCHC 32.3 g/dL 32.2-3 5.5 Not Available [address], [address], 06/07/2024 12:25:36 06/07/2006/07/2024 CBC plt 258 K/? ? ?L 182-36 9 Not Available [address], [address], 06/07/2024 12:25:36 06/07/2006/07/2024 CBC MPV 11.1 fL 9.4-12 .3 Not Available [address], [address], 06/07/2024 12:25:36 06/07/2006/07/2024 CBC neut% 56.9 % 34.0-7 1.1 Not Available [address], [address], 06/07/2024 12:25:36 06/07/2006/07/2024 CBC neut# 3.24 1.56-6 .13 Not Available [address], [address], 06/07/2024 12:25:36 06/07/2006/07/2024 CBC lymph % 32.0 % 19.3-5 1.7 Not Available [address], [address], 06/07/2024 12:25:36 06/07/2006/07/2024 CBC lymph # 1.82 K/? ? ?L 1.18-3 .74 Not Available [address], [address], 06/07/2024 12:25:36 06/07/2006/07/2024 CBC mono% 8.4 % 4.7-12 .5 Not Available [address], [address], 06/07/2024 12:25:36 06/07/2006/07/2024 CBC mono# 0.48 0.24-0 .56 Not Available [address], [address], 06/07/2024 12:25:36 06/07/20 24 06/07/2024 CBC eo% 1.6 % 0.7-5. 8 Not Available [address], [address], 06/07/2024 12:25:36 06/07/20 24 06/07/2024 CBC eo# 0.09 0.04-0 .36 Not Available [address], [address], 06/07/2024 12:25:36 06/07/20 24 06/07/2024 CBC baso% 0.7 % 0.1-1. 2 Not Available [address], [address], 06/07/2024 12:25:36 06/07/20 24 06/07/2024 CBC baso# 0.04 0.00-0 .08 Not Available [address], [address], 06/07/2024 12:25:36 06/07/20 24 06/07/2024 CBC RDW-CV 14.1 % 11.7-1 4.4 Not Available [address], [address], 06/07/2024 12:25:36 06/07/20 24 06/07/2024 CBC Ig% 0.400 % 0.000- 1.500 Ig % >0.5 Indic ates possi ble Left Shift Not Available [address], [address], 06/07/2024 12:25:36 06/07/20 24 06/07/2024 CBC Ig# 0.020 0.000- 0.093 Not Available [address], [address], 06/07/2024 12:25:36 06/07/20 24 06/07/2024 CBC NRBC% 0.0 % 0.0-0. 2 Not Available [address], [address], 06/07/2024 12:25:36 06/07/20 24 06/07/2024 CBC NRBC# 0.000 0.000- 0.012 Not Available [address], [address], 06/07/2024 12:25:36 06/07/20 24 06/08/2024 COMP. METAB OLIC PANEL glucose 90 mg/dL 70-100 Not Available [address], [address], 06/08/2024 14:45:06 06/07/20 24 06/08/2024 COMP. METAB OLIC PANEL BUN 15 mg/dL 7-18 Not Available [address], [address], 06/08/2024 14:45:06 06/07/20 24 06/08/2024 COMP. METAB OLIC PANEL creatinine 0.6 mg/dL 0.8-1. 3 low Not Available [address], [address], 06/08/2024 14:45:06 06/07/20 24 06/08/2024 COMP. METAB OLIC PANEL B/C 25.0 ratio Not Available [address], [address], 06/08/2024 14:45:06 06/07/20 24 06/08/2024 COMP. METAB [...] 2020) as recom keya d by the [facility] . eGFR is based on age, serum creat inine , and sex. CKD-E PI does not calcu late eGFR by race, does not apply to child rosi (age <18 years ), and shoul d not be used in pregn lanette. Not Available [address], [address], 06/08/2024 14:45:06 06/07/20 24 06/08/2024 COMP. METAB OLIC PANEL sodium 144 mmol/ L 136-14 5 Not Available [address], [address], 06/08/2024 14:45:06 06/07/20 24 06/08/2024 COMP. METAB OLIC PANEL potassium 4.6 mmol/ L 3.5-5. 1 Not Available [address], [address], 06/08/2024 14:45:06 06/07/20 24 06/08/2024 COMP. METAB OLIC PANEL chloride 104 mmol/ L 96-107 Not Available [address], [address], 06/08/2024 14:45:06 06/07/20 24 06/08/2024 COMP. METAB OLIC PANEL anion gap 9.4 5.0-15 .0 Not Available [address], [address], 06/08/2024 14:45:06 06/07/20 24 06/08/2024 COMP. METAB OLIC PANEL CO2 31 mmol/ L 21-32 Not Available [address], [address], 06/08/2024 14:45:06 06/07/20 24 06/08/2024 COMP. METAB OLIC PANEL calcium 9.6 mg/dL 8.5-10 .3 Not Available [address], [address], 06/08/2024 14:45:06 06/07/20 24 06/08/2024 COMP. METAB OLIC PANEL total protein 7.8 g/dL 6.4-8. 2 Not Available [address], [address], 06/08/2024 14:45:06 06/07/20 24 06/08/2024 COMP. METAB OLIC PANEL albumin 4.2 g/dL 3.4-5. 0 Not Available [address], [address], 06/08/2024 14:45:06 06/07/20 24 06/08/2024 COMP. METAB OLIC PANEL globulin 3.6 g/dL Not Available [address], [address], 06/08/2024 14:45:06 06/07/20 24 06/08/2024 COMP. METAB OLIC PANEL A/G 1.2 ratio 0.8-2. 0 Not Available [address], [address], 06/08/2024 14:45:06 06/07/20 24 06/08/2024 COMP. METAB OLIC PANEL total bilirubin 0.60 mg/dL 0.00-1 .00 Not Available [address], [address], 06/08/2024 14:45:06 06/07/20 24 06/08/2024 COMP. METAB OLIC PANEL AST 15 U/L 0-37 Not Available [address], [address], 06/08/2024 14:45:06 06/07/20 24 06/08/2024 COMP. METAB OLIC PANEL ALT 29 U/L 6-63 Not Available [address], [address], 06/08/2024 14:45:06 06/07/2006/08/2024 COMP. METAB OLIC PANEL alk. phos. 63 U/L 50-136 Not Available [address], [address], 06/08/2024 14:45:06 06/07/20 24 06/08/2024 LIPID PANEL cholesterol 231 mg/dL <200 mg/dl Morgan able 200-2 39 mg/dl Borde rline High >240 mg/dl High Not Available [address], [address], 06/08/2024 14:45:07 06/07/20 24 06/08/2024 LIPID PANEL triglyceride s 169 mg/dL <150 mg/dL Lisa l 150-1 99 mg/dL Borde rline High 200-4 99 mg/dL High >500 mg/dL Very High Not Available [address], [address], 06/08/2024 14:45:07 06/07/20 24 06/08/2024 LIPID PANEL direct HDL 68 mg/dL <40 mg/dl - Major Risk for CHD >60 mg/dl - Negat whitney Risk for CHD Not Available [address], [address], 06/08/2024 14:45:07 06/07/20 24 06/08/2024 DIREC T [...] r is not perla talavera. Not Available [address], [address], 06/08/2024 14:45:07 Result Notes None recorded. 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 Deborah Kurtz NP [address] [place], [place] [address], [address], [facility] 3 09:12:01 Major depressi ve disorder 052417762 Active 2023 Maureen Mahajan MD [address] [place], [place] [address], [address], [facility] 4 09:14:18 Osteopen ia 243307814 Active 2023 CAMILA Ortiz [address] [place], [place] [address], [address], [facility] 4 11:22:33 Endomyoc ardial fibrosis 866255144 Completed 200711/02/2013 Sendy Spivey MD [address] [place], [place] [address], [address], [facility] 6 10:04:23 Gastroes ophageal reflux disease 675983644 Active Deborah Kurtz NP [address] [place], [place] [address] [address], [facility] 2 09:23:39 Osteoart hritis of knee 049619323 Completed 02/05/2016 Sendy Spivey MD [facility] [place], [address], [facility] 6 10:04:23 Pain of multiple joints 36200714 Completed 200712/26/2008 duplicate Sendy Spivey MD [place], [address], [facility] 6 10:04:23 Allergic rhinitis 81899255 Active 2005 Deborah Kurtz NP [address] [place], [place], [address], [facility] 2 09:23:40 Ankylosi ng spondyli tis 6684139 Active Deborah Kurtz NP [address] [place], [place], [address], [facility] 2 09:23:40 Localize d, primary osteoart hritis 078939293 Completed 11/02/2013 Sendy Spivey MD [address] [place], [place] [address], [address], [facility] 6 10:04:23 Disorder of skeletal system 51872150 Completed 200707/21/2013 Sendy Spivey MD [address] [place], [place] [address], [address], [facility] 6 10:04:23 Neoplasm of uncertai n behavior of skin 27407455 Completed 07/21/2013 [place], [address], [facility] 6 10:04:23 Pain of joint 25502347 Completed 200712/26/2008 duplicate [place], [address], [facility] 6 10:04:23 Inflamma tory spondylo james Completed 02/05/2016 [place], [address], [facility] 6 10:04:23 Anemia 530459592 Completed 200611/02/2013 Sendy Spivey MD [address] [place], [address], [facility] 6 10:04:23 Acute maxillar y sinusiti s 25309766 Completed 200712/26/2008 Sendy Spivey MD [place] [place], [address], [facility] 6 10:04:23 Acute conjunct ivitis 91775850 Completed 200612/26/2008 Sendy Spivey MD [place] [place], [address], [facility] 6 10:04:23 Knee joint effusion 954249593 Completed 07/21/2013 Sendy Spivey MD [place] [place], [address], [facility] 6 10:04:23 Knee joint effusion 292346294 Completed 200712/26/2008 duplicate Sendy Spivey MD [place], [address], [facility] 6 10:04:23 Knee stiff 511206492 Completed 200712/26/2008 duplicate Sendy Spivey MD [place], [address], [facility] 6 10:04:23 Malaise and fatigue 559120701 Completed 200707/21/2013 [place], [address], [facility] 6 10:04:23 Polymyal sissy rheumati ca 70727513 Completed 200702/03/2015 Sendy Spivey MD [address] [place], [address], [facility] 6 10:04:23 Hip stiff 933752110 Completed 200712/26/2008 duplicate Sendy Spivey MD [address] [place] [address] [place], [address], [facility] 6 10:04:23 Disorder of tendon of shoulder region 64613444 Completed 200712/26/2008 duplicate [place], [address], [facility] 6 10:04:23 Urge incontin ence of urine 54945297 Active 2006 did do biofeedba ck at [facility] Deborah Kurtz NP [facility] [place], [address], [facility] 2 09:23:40 Constipa tion by outlet obstruct ion 88155379 Active [place], [address], [facility] 2 09:23:40 Localize d, secondar y osteoart hritis 089924591 Completed 11/02/2013 Sendy Spivey MD [address] [place] [address] [place], [address], [facility] 6 10:04:23 Elevated level of transami nase and lactic acid dehydrog enase 618962797 Completed 02/05/2016 Sendy Spivey MD [place] [place], [address], [facility] 6 10:04:23 Pain of shoulder region 33198134 Completed 200612/26/2008 Sendy Spivey MD [address] [place] [address] [place], [address], [facility] 6 10:04:23 Sleep disorder 71141587 Active r/t pain and nocturia [place], [address], [facility] 2 09:23:39 Inflamma tory polyarth ropathy 861689848 Completed 11/02/2013 [place], [address], [facility] 6 10:04:23 Enthesop athy of hip region 93618913 Completed 07/21/2013 [place], [address], [facility] 6 10:04:23 Pain of hip region 18679492 Completed 07/21/2013 [place], [address], [facility] 6 10:04:23 Menstrua tion finding Completed 200512/26/2008 [place], [address], [facility] 6 10:04:23 Common cold 44484026 Completed 200712/26/2008 [place], [address], [facility] 6 10:04:23 Menopaus al symptom 67226524 Completed 200507/21/2013 [place], [address], [facility] 6 10:04:23 Low back pain 632488337 Completed 02/05/2016 [place], [address], [facility] 6 10:04:23 Menopaus al and postmeno pausal disorder s 331337218 Completed 200612/26/2008 duplicate [place], [address], [facility] 6 10:04:23 Osteoart hritis of joint of hand 59735743 Active and knee [place], [address], [facility] 09:23:39 Problem Notes None recorded. Procedures Surgical History Date Name Laterality Status Provider Name and Address Organization Details Recorded Time 06/07/20 Medicare Wellness Visit completed Fabiola Neumann [facility] 06/02/2024 13:13:57 06/07/20 24 Medicare Annual Wellness Visit completed Fabiola Neumann [facility] 06/07/2024 10:15:29 06/07/20 24 Advanced Care Planning completed Fabiola Neumann [facility] 06/07/2024 10:14:25 06/06/20 23 Medicare Wellness Visit completed Araceli Herrera MA [facility] 06/06/2023 13:57:09 07/04/20 18759: Therapeutic Exercise completed Ainsley Sanchez, PT [address] [place], [address], [facility] 07/04/2022 10:07:42 07/04/20 22 Treatment and Advice completed Ainsley Sanchez, PT [address] [place], [address], [facility] 07/04/2022 10:07:37 05/31/20 22 Medicare Wellness Visit completed Araceli Herrera MA [facility] 05/31/2022 09:04:32 05/31/20 22 Alcohol use screening completed Araceli Herrera MA [facility] 05/31/2022 09:04:32 05/31/20 22 Cardiovascular disease risk reduction counseling completed Araceli Herrera MA [facility] 05/31/2022 09:04:32 05/30/20 22 36891: Therapeutic Exercise completed Ainsley Sanchez, PT [address] [place], [address], [facility] 05/30/2022 10:38:44 05/30/20 22 Treatment and Advice completed Ainsley Sanchez, PT [address] [place], [address], [facility] 05/30/2022 10:58:45 05/16/20 22 63237: Therapeutic Exercise completed Ainsley Sanchez, PT [address] [place], [address], [facility] 05/16/2022 13:04:45 05/16/20 22 Treatment and Advice completed Ainsley Sanchez, PT [address] [place], [address], [facility] 05/16/2022 13:28:20 05/02/20 22 04946: Therapeutic Exercise completed Ainsley Sanchez, PT [address] [place], [address], [facility] 05/02/2022 13:36:08 05/02/20 22 Treatment and Advice completed Ainsley Sanchez, PT [address] [place], [address], [facility] 05/02/2022 13:34:54 04/25/20 22 Physical Activity Counselling completed Ainsley Sanchez, PT [address] [place], [address], [facility] 04/25/2022 14:41:24 04/25/20 22 07368: PT Eval Low Complexity completed Ainsley Sanchez, PT [address] [place], [address], [facility] 04/25/2022 14:41:21 04/25/20 22 Treatment and Advice completed Ainsley Sanchez, PT [address] [place], [address], [facility] 04/25/2022 14:41:18 03/26/20 22 Trochanteric Bursa Injection completed Charlie Lemos MD [address] [place] [address], [address], [facility] 03/26/2022 10:35:44 02/22/20 22 Knee Injection MCM completed Elliott Francisco MD [address] [place] [address], [address], [facility] 02/21/2022 10:38:17 02/01/20 21 Trochanteric Bursae Injection MCM completed Elliott Francisco MD [address] [place] [address], [address], [facility] 01/31/2021 11:25:40 05/17/20 20 Medicare Wellness Visit completed [facility] 05/16/2020 16:40:56 05/17/20 20 prevention-cardiov ascular risk reduction counseling completed [facility] 05/16/2020 16:40:56 05/17/20 20 prevention-annual alcohol misuse screening completed [facility] 05/16/2020 16:40:56 07/19/20 19 IV Therapy completed Karolina ndiaye RN [facility] 07/19/2019 14:08:42 07/18/20 19 POC Flu Testing completed Ada Barroso [facility] 07/18/2019 11:04:50 03/31/20 19 Medicare Wellness Visit completed Chelo Yan CMA [facility] 03/31/2019 10:44:44 02/26/20 18 Medicare Wellness Visit completed Rosana Lambert [facility] 02/25/2018 13:26:02 11/08/19 18 POC Strep Testing completed Stephani Adhikari [facility] 11/07/2017 11:43:50 05/23/20 17 Colonoscopy completed Sendy Spivey MD [address] [place] [address], [address], [facility] 06/15/2017 12:00:06 02/12/20 17 Medicare Wellness Visit completed Rosana Lambert MA [facility] 02/11/2017 08:45:52 02/12/20 17 Medicare Annual Wellness Visit completed Sendy Spivey MD [address] [place] [address], [address], [facility] 02/16/2017 11:27:38 10/01/19 12 Greater Trochanteric Bursa Steroid Injection completed Jacqueline Connolly MD [address] [place] [address], [address], [facility] 10/01/2011 14:13:14 04/22/20 11 Supartz Injection completed Jacqueline Connolly MD [address] [place] [address], [address], [facility] 04/22/2011 09:02:27 04/15/20 11 Supartz Injection completed Jacqueline Connolly MD [address] [place] [address], [address], [facility] 04/15/2011 10:59:00 04/08/20 11 Supartz Injection completed Jacqueline Connolly MD [address] [place] [address], [address], [facility] 04/08/2011 19:08:17 10/22/19 11 Knee (Right) Injection completed Jacqueline Connolly MD [address] [place] [address], [address], [facility] 10/22/2010 09:50:48 02/24/20 10 Knee (Left) Injection completed Jacqueline Connolly MD [address] [place] [address], [address], [facility] 02/24/2010 07:54:50 09/01/18 91 Other (specify) completed Sara Arnold NP [address] [place] [address], [address], [facility] 01/07/2014 15:34:42 Imaging Results None recorded. Procedure Notes None recorded. Medical Equipment None Reported. Allergies Allergen ID Allergen Name Allergen Category Reaction Reaction Severity Criticality Documentation Date Start Date Code Code System Note Provider Name and Address Organization Details Recorded Time 906013 cephalexi n medicatio n rash Not available Not available 06/07/2024 2231 RxNorm MAURA Suresh, [facility] 4 10:04:43 [address]2729 isoniazid medicatio n Not available Not available Not available 03/11/2011 6038 RxNorm LFT abnor malit y Not Available [facility] 1 06:05:41 9162 codeine medicatio n nausea vomiting Not available Not available Not available 12/19/2008 2670 RxNorm Not Available [facility] 1 06:05:20 Medications Name Sig Start Date [...] TAKE 1 TABLET BY MOUTH EVERY WEEK active Not Available Not Available No t Available sertralin e 100 mg tablet TAKE 1 TABLET BY MOUTH DAILY ALONG WITH 50 MG active Not Available Not Available No t [...] sodium 2.5 mg tablet TAKE 4 TABLETS BY MOUTH EVERY WEEK active Not Available Not Available [...] Not Avai lable Nasonex 50 mcg/actua tion [place] 2 sprays every day by intranas al route for 90 days. 2008 active doesnt like to use Not Available Not Available Not Available estradiol 0.01% (0.1 mg/gram) vaginal cream INSERT 1 GRAM IN THE VAGINA AT BEDTIME DIRECTED 05/31 completed Not Available Not Available Not Available ipratropi um bromide 42 mcg (0.06 %) nasal spray [place] 2 sprays 3 times a day by [...] mg tablet TAKE 2 TABLETS BY MOUTH 1 TIME active Not Available Not Available No t Available etodolac ER 600 mg tablet,ex tended release 24 hr Take 1 tablet every day by oral route. 02/03 completed Not Available Not Available Not Available folic acid 800 mcg tablet TAKE 1 TABLET BY MOUTH DAILY active Not Available Not Available No t Available tobramyci n 0.3 %-dexamet hasone 0.1 % [...] t Available Vitals Date Recorded Body height Body mass index (BMI) Body weight Heart rate Systolic blood pressure Diastolic blood pressure Provider Name and Address Organization Details Last Updated DateTime 4 170.18 cm 17.7 kg/m2 41932.9 4 g 60 /min 120 mm[Hg] 63 mm[Hg] Sangita Preston [facility] 4 09:51:38 Date Recorded Body height Body mass index (BMI) Body weight Heart rate Systolic blood pressure Diastolic blood pressure Provider Name and Address Organization Details Last Updated DateTime 4 170.18 cm 17.7 kg/m2 98581.6 9 g 60 /min 111 mm[Hg] 50 mm[Hg] Sangita Preston [facility] 4 08:33:05 Date Recorded Body height Body mass index (BMI) Body weight Body temperature Heart rate Oxygen saturation Oxygen saturation in Arterial blood by Pulse oximetry Systolic blood pressure Diastolic blood pressure Provider Name and Address Organization Details Last Updated DateTime 4 170.18 cm 17.7 kg/m2 56851.9 4 g 98 [degF] 50 /min 98 % 98 % 110 mm[Hg] 50 mm[Hg] Salena Trejo [facility] 4 14:01:32 Date Recorded Body height Oxygen saturation Oxygen saturation in Arterial blood by Pulse oximetry Heart rate Body mass index (BMI) Body weight Systolic blood pressure Diastolic blood pressure Provider Name and Address Organization Details Last Updated DateTime 4 170.18 cm 99 % 99 % 64 /min 18.5 kg/m2 78359.9 g 128 mm[Hg] 62 mm[Hg] Fabiola Neumann [employer] [facility] 4 10:10:05 Date Recorded Body height Body mass index (BMI) Body weight Heart rate Systolic blood pressure Diastolic blood pressure Provider Name and Address Organization Details Last Updated DateTime 4 170.18 cm 18.5 kg/m2 26569.9 g 76 /min 114 mm[Hg] 54 mm[Hg] Nicole Quigley [facility] 4 09:25:37 Social History Question Answer Notes LastModified by Organizat ion Details LastModified Time Tobacco Smoking Status Former Smoker 01/07/14 Quit age 20. Not Available [employer] 01/24/2011 02:08:47 Do You Have An Advance Directive? Yes [email or web address] Information not available 07/18/2011 Do You Wear A Helmet When Biking? [...] You Used? None Information not available 09/29/2012 Education Post Graduate [email or web address] Information not available 07/18/2011 What Is The Highest Grade Or Level Of School You Have Completed Or The Highest Degree You Have Received? [id number] Information not available 06/06/2023 Have There Been Any Changes To Your Family Or Social Situation? No Information not available 06/07/2024 When Did You Quit Smoking? 16+yearssin alex colbert Information not available 02/05/2016 How Many Days [...] With Others W/ Information not available 04/15/2011 Patient Has Health Care Proxy Signed And [...] To Smoke? No Information not available 05/31/2022 How Much Tobacco Do You Smoke? No Information not available 07/18/2019 General Stress Level Medium [email or web address] Information not available 05/17/2020 Do You Use Sunscreen Routinely? Yes [email or web address] Information not available 07/18/2011 How Many Years Have You Smoked Tobacco? 2 Information not available 01/07/2014 Do You Have Difficulty Walking Or Climbing Stairs? No Information not available 01/07/2014 How Many Days In The Past Year Have You Consumed 4 Or More Drinks? 0 Information not available 05/31/2022 Sex: Female Functional Status Question Answer Note LastModified by Organizat ion Details LastModified Time Do you use any illicit or recreational drugs? No Information not available 05/31/2022 Do you or have you ever used any other forms of tobacco or nicotine? No Information not available 06/07/2024 What is your level of alcohol consumption? Occasional Wine or beer w/ meal a few time per week Information not available 06/07/2024 Do you or have you ever used smokeless tobacco? Never used smokeless tobacco Information not available 07/18/2019 Do you have difficulty doing errands alone? No Information not available 01/07/2014 What is your occupation? retired [email or web address] Information not available 02/11/2017 Do you have difficulty dressing or bathing? No Information not available 01/07/2014 Do you or have you ever used e-cigarettes or vape? Never used electronic cigarettes [email or web address] Information not available 07/18/2019 What is your exercise level? Occasional Walking [...] HPV N History of Abnormal Pap N Approximate Obstetrics History GPAL:G 0 P 0 0 0 0 Immunizations Vaccine Type Date Status Note Provider Nam e and Address Organization Details Recorded Time Influenza, split virus, trivalent, preservative 1 completed Not Available [facility] 09/18/2019 02:34:20 influenza, unspecified formulation 7 completed Not Available [facility] 04/24/2022 18:22:33 pneumococcal polysaccharide PPV23 8 completed Not Available [facility] 04/24/2022 18:22:33 Tdap 2 completed Not Available [facility] 09/18/2019 02:28:10 Influenza, split virus, trivalent, preservative 2 completed Not Available [facility] 09/18/2019 02:18:35 Influenza, split virus, quadrivalent, PF 3 completed Not Available [facility] 09/18/2019 02:18:55 Td(adult) unspecified formulation 4 completed Not Available [facility] 04/24/2022 18:22:33 Influenza, high-dose, trivalent, PF 4 completed Not Available [facility] 09/18/2019 02:19:02 Influenza, split virus, quadrivalent, PF 5 completed Not Available [facility] 09/18/2019 02:19:47 Influenza, split virus, quadrivalent, PF 6 completed Not Available [facility] 09/18/2019 02:21:05 Pneumococcal conjugate PCV 13 7 completed Not Available [facility] 09/18/2019 02:21:36 Influenza, high-dose, trivalent, PF 7 completed Not Available [facility] 09/18/2019 02:22:04 Influenza, high-dose, trivalent, PF 8 completed Not Available [facility] 09/18/2019 02:37:59 Influenza, high-dose, trivalent, PF 9 completed Not Available [facility] 09/18/2019 02:36:22 pneumococcal polysaccharide PPV23 8 completed Not Available [facility] 04/24/2022 18:22:33 Influenza, high-dose, quadrivalent, PF 0 completed Sayda guillory [facility] 05/20/2020 11:00:31 Influenza, high-dose, quadrivalent, PF 1 completed DON Alcantara [facility] 06/14/2021 15:24:32 zoster recombinant 0 completed Not Available [facility] 04/24/2022 18:22:33 Td (adult), 2 Lf tetanus toxoid, preservative free, adsorbed 2 completed Deborah Kurtz, [employer] [address] [place] [address], [id number], [facility] 06/27/2022 16:53:37 COVID-19, mRNA, LNP-S, PF, 100 mcg/0.5mL dose or 50 mcg/0.25mL dose 1 completed [facility] 09:53:48 COVID-19, mRNA, LNP-S, PF, 100 mcg/0.5mL dose or 50 mcg/0.25mL dose 1 completed [facility] 06/07/2024 09:53:48 COVID-19, mRNA, LNP-S, PF, 100 mcg/0.5mL dose or 50 mcg/0.25mL dose 1 completed MELISSA SureshA [facility] 06/07/2024 09:53:48 COVID-19, mRNA, LNP-S, PF, 100 mcg/0.5mL dose or 50 mcg/0.25mL dose 2 completed Fab[facility]ola [facility] 06/07/2024 09:53:48 zoster recombinant 0 completed Fabiola Neumann [facility] 06/02/2024 13:16:12 zoster, unspecified formulation 0 completed [facility]ola [facility] 06/07/2024 09:53:48 Influenza, high-dose, quadrivalent, PF 2 completed Fabiola Neumann [facility] 06/07/2024 09:53:48 Influenza, high-dose, quadrivalent, PF 3 completed [facility]ola [facility] 06/07/2024 09:53:48 COVID-19, mRNA, LNP-S, bivalent, PF, 50 mcg/0.5 mL or 25mcg/0.25 mL dose 2 completed Fabiola NelMAURA kimble [facility] 06/07/2024 09:53:48 RSV, bivalent, protein subunit RSVpreF, diluent reconstituted, 0.5 mL, PF 3 completed [facility] 06/07/2024 09:53:48 COVID-19, mRNA, LNP-S, PF, 50 mcg/0.5 mL 3 completed MAURA Suresh [facility] 06/07/2024 09:53:48 Influenza, high-dose, trivalent, PF 4 completed [facility] 06/07/2024 10:13:30 SARS-COV-2 (COVID-19) vaccine, UNSPECIFIED 5 completed [facility]/2024 13:59:05 Past Encounters Encounter ID Performer Location Encounter Start Date Encounter Closed Date Diagnosis/Indication Diagnosis SNOMED-CT Code Diagnosis ICD10 Code Diagnosis Note [id number] [facility] [address] [place] [address] 01/11/2005 16:51:14 01/11/2005 16:55:01 [id number] Sendy Spivey MD , [facility], OFFICE [address] [place] [address] 11/08/2005 10:05:01 11/08/2005 16:08:11 [id number] Alessandro Plunkett M.D. , [facility], OFFICE [address] [place] [address] 1 01/23/2006 15:41:06 01/23/2006 16:51:40 [id number] [facility] - [address] [address] 01/24/2006 08:14:34 01/24/2006 08:14:55 [id number] MD WELLINGTON Gutierrez, [facility], OFFICE [address] [place] [address] 1 08/01/2006 16:09:52 08/02/2006 13:09:32 [id number] Ne Celestin PA-C , [facility], OFFICE [address] [facility] [place] [address] 1 11/24/2006 15:02:24 11/24/2006 17:19:46 [id number] [facility] , [address] [place] [address] 1 11/24/2006 15:51:50 11/24/2006 16:16:00 [id number] [facility] - [address] [place] [address] 1 11/28/2006 09:40:40 11/28/2006 09:40:43 [id number] Sendy Spivey MD , [facility], OFFICE [address] [place] [address] [place] [address] 1 07/07/2007 07:58:20 09/21/2008 02:02:29 [id number] Karel Yang MD , [facility], OFFICE [address] [place] [address] [place] [address] 1 2007 08:40:45 07/22/2007 11:06:06 [id number] [facility] - [address] [place] [address] 1 09/10/2007 13:28:51 09/10/2007 13:28:59 [id number] Bruce Mercedes MD , [facility], OFFICE [address] [place] [address] [place] [address] 1 09/10/2007 12:44:36 09/21/2008 02:02:29 [id number] Anirudh Yin MD , [facility], OFFICE [address] [place] [address] [place] [address] 1 09/18/2007 13:31:15 09/21/2008 02:02:29 [id number] [facility] - [address] [place] [address] 1 09/18/2007 15:13:33 09/18/2007 15:13:40 [id number] Anirudh Yin MD , [facility], OFFICE [address] [place] [address] [place] [address] 1 09/23/2007 14:03:25 09/21/2008 02:02:29 [id number] [facility] - [address] [place] [address] 1 10/22/2007 10:24:21 10/22/2007 10:45:29 [id number] Anirudh Yin MD , [facility], OFFICE [address] [place] [address] 1 10/22/2007 09:15:51 09/21/2008 02:02:29 [id number] [facility] - [facility] [place] [address] 1 11/04/2007 11:47:28 11/04/2007 11:47:40 [id number] Jacqueline Connolly MD Rheumatol ogy, [address] [place] [address] 11/04/2007 10:34:53 09/21/2008 02:02:29 [id number] [facility] , [place] [address] [place] [address] 1 11/06/2007 10:49:53 11/06/2007 18:02:46 [id number] Jacqueline Connolly MD Rheumatol ogy, [address] [place] [address] 1 12/07/2007 15:05:59 09/21/2008 02:02:29 [id number] [facility] - [facility] [place] [address] 1 12/07/2007 16:21:16 12/07/2007 16:21:24 [id number] Sendy Spivey MD , [facility], OFFICE [address] [place] [address] 1 12/18/2007 08:14:29 09/21/2008 02:02:29 [id number] Jacqueline Connolly MD Rheumatol ogy, [address] [place] [address] 1 01/04/2008 15:06:33 09/21/2008 02:02:29 [id number] [facility], [address] [place] [address] 01/18/2008 14:54:53 09/21/2008 02:02:29 [id number] [facility], [address] [place] [address] 02/02/2008 14:52:03 02/02/2008 16:23:47 [id number] Jacquelnie Connolly MD Rheumatol rhonda, [address] [place] [address] 1 02/23/2008 15:22:45 09/21/2008 02:02:29 [id number] [facility] - [address] [place] [address] 1 05/06/2008 12:16:02 05/06/2008 12:20:30 [id number] Jacqueline Connolly MD Rheumatol rhonda, [address] [place] [address] 1 05/06/2008 11:34:46 09/21/2008 02:02:29 [id number] Jacqueline Connolly MD Rheumatol rhonda, [address] [place] [address] 1 06/21/2008 15:09:35 09/21/2008 02:02:29 [id number] Jacqueline Connolly MD Rheumatol carole, [address] [place] [address] 1 09/27/2008 14:29:30 09/29/2008 11:52:40 [id number] Sendy Spivey MD , [facility], OFFICE [address] [place] [address] [place] [address] 1 12/19/2008 15:04:22 12/20/2008 08:39:27 [id number] [facility] - [address] [place] [address] 1 12/26/2008 07:37:56 12/26/2008 07:38:07 [id number] Jacqueline Connolly MD Rheumatol rhonda, [address] [place] [address] 1 07/03/2009 08:12:59 07/04/2009 10:06:52 [id number] [facility] , [address] [place] [address] 1 07/03/2009 08:46:44 07/03/2009 08:58:54 [id number] MAMMOGRAPH Y [facility] , [address] [place] [address] 1 11/30/2009 09:15:50 12/01/2009 09:52:32 [id number] [facility] , [address] [place], [place] [address] 11/30/2009 09:16:06 11/30/2009 09:57:34 [id number] Sendy Spivey MD , [facility], OFFICE [address] [facility] [place], [place] [address] 12/27/2009 09:00:01 12/28/2009 08:22:53 [id number] Jacqueline Connolly MD Rheumatol [facility], [address] [place], [place] [address] 02/23/2010 10:51:21 02/28/2010 10:03:49 [id number] Jacqueline Connolly MD Rheumatol [facility], [address], [place] [address] 04/17/2010 12:52:57 04/23/2010 09:21:09 [id number] Jacqueline Connolly MD Rheumatol [facility], [address], [place] [address] 1 05/25/2010 09:34:07 05/30/2010 08:39:52 [id number] Jacqueline Connolly MD Rheumatol [facility], [address] [place], [place] [address] 1 07/13/2010 10:56:24 07/13/2010 15:41:02 [id number] Jacqueline Connolly MD Rheumatol [facility], [address] [place], [place] [address] 08/13/2010 15:48:57 08/14/2010 09:20:05 [id number] Jacqueline Connolly MD Rheumat[facility], [address] [place] [address] 1 08/22/2010 08:51:33 08/28/2010 08:08:13 [id number] Jacqueline Connolly MD Rheumatol rhonda, [address] [place] [address] 1 09/10/2010 08:37:29 09/11/2010 09:08:03 [id number] [facility] [address] [facility] , [address] [place] [address] 1 09/10/2010 09:09:00 09/10/2010 09:19:43 [id number] Jacqueline Connolly MD Rheumatol ogy, [address] [place], [place] [address] 1 09/20/2010 10:02:00 09/20/2010 15:33:25 [id number] Jacqueline Connolly MD Rheumatol [facility], [address] [place], [place] [address] 10/22/2010 08:05:51 10/22/2010 11:46:56 [id number] Jacqueline Connolly MD Rheumatol [facility], [address] [place], [place] [address] 1 12/24/2010 07:49:29 12/24/2010 13:47:47 [id number] [facility] , [address] [place], [place] [address] 1 12/24/2010 10:25:06 12/24/2010 10:46:16 [id number] MAMMOGRAPH Y [facility] , [address] [place], [place] [address] 1 01/17/2011 07:56:18 01/18/2011 07:52:23 [id number] Jacqueline Connolly MD Rheumatol [facility], [address] [place], [place] [address] 1 03/11/2011 08:02:49 03/11/2011 08:44:43 [id number] Jacqueline Connolly MD Rheumatol rhonda, [address] [place], [place] [address] 1 04/08/2011 14:50:51 04/09/2011 08:52:12 [id number] Jacqueline Connolly MD Rheumatol [facility], [address] [place] [address] 1 04/15/2011 10:25:40 04/16/2011 09:19:19 [id number] Sendy Spivey MD , [facility], [address] [facility] [place] [address] 04/15/2011 13:06:23 04/15/2011 14:37:29 [id number] Jacqueline Connolly MD Rheumatol [facility]carter, [address], [place] [address] 1 04/22/2011 08:25:11 04/23/2011 09:02:40 [id number] Jacqueline Connolly MD Rheumatol ogy, [address] [place], [place] [address] 1 05/23/2011 08:30:55 05/24/2011 09:19:36 [id number] Jacqueline Connolly MD Rheumatol ogy, [address] [place], [place] [address] 1 07/22/2011 14:24:19 07/23/2011 08:26:47 [id number] Jacqueline Connolly MD Rheumatol ogy, [address] [place], [place] [address] 1 08/20/2011 14:32:00 08/21/2011 09:07:19 [id number] Jacqueline Connolly MD Rheumatol ogy, [address], [place] [address] 1 10/01/2011 12:49:42 10/02/2011 09:08:19 [id number] Jacqueline Connolly MD Rheumatol ogy, [address] [place], [place] [address] 1 11/29/2011 14:41:56 12/02/2011 08:37:06 [id number] Tho Gonzalez MD Radiology , [address] [place], [place] [address] 02/13/2012 15:17:03 02/14/2012 10:45:00 [id number] Jacqueline Connolly MD Rheumatol ogy, [address] [place], [place] [address] 02/27/2012 10:30:46 02/28/2012 07:37:47 [id number] FAMILY PRACTICE TREATMENT NURSE [facility], [facility], OFFICE [address] [place] [address] [place], [place] [address] 03/10/2012 09:23:17 03/10/2012 10:02:09 [id number] Jacqueline Connolly MD Rheumatol ogy, [address] [place], [place] [address] 05/26/2012 12:59:36 05/27/2012 07:33:50 [id number] Cherelle Newsome PA-C , [facility], OFFICE [address] [place] [address] [place] [address] 1 07/07/2012 12:46:31 07/07/2012 13:46:43 [id number] Sendy Spivey MD , [facility], OFFICE [address] [facility] [place] [address] 09/29/2012 13:03:31 11/09/2012 07:42:37 [id number] Jayda Dupont MD Radiology , [address] [place] [address] 09/29/2012 14:02:06 09/29/2012 16:21:07 [id number] Jacqueline Connolly MD Rheumatol og, [address] [place] [address] 02/09/2013 08:06:50 02/10/2013 08:26:37 [id number] Sendy Spivey MD , [facility], OFFICE [address] [facility] [place] [address] 1 07/02/2013 06:39:05 07/02/2013 11:52:21 Influenza vaccine needed [id number] Jacqueline Connolly MD Rheumatol ogy, [address] [place] [address] 1 08/17/2013 12:59:11 08/18/2013 08:40:27 Ankylosing spondylitis 1216005 B27+ SpArth: Spondyliti s and periph arthropath [...] te. She should discuss this with me. [id number] Sara Arnold NP , [facility], OFFICE [address] [facility] [place] [address] 01/07/2014 14:35:48 01/10/2014 07:47:59 Adult health examination [id number] see Risk Assessment and Lifestyle Change Counseling section above Screening mammography 83156101 Urinary incontinence 056628734 Ankylosing spondylitis 0803502 Stable on medication s. Moderate r ecurrent major depression 47397639 [id number] Jacqueline Connolly MD Rheumatol [address] [address] 01/27/2014 08:41:05 01/28/2014 09:17:20 Ankylosing spondylitis 7673639 B27+ SpArth: Spondyliti s and periph arthropath [...] Continue monitoring labs on MTX. Return 6mo. [id number] Sendy Spivey MD , [facility], OFFICE [address] [place] [address] 1 06/14/2014 08:23:03 06/14/2014 08:38:24 Influenza vaccine needed [id number] Jacqueline Connolly MD Rheumatol [address] [address] 07/19/2014 08:43:30 07/21/2014 09:29:29 Ankylosing spondylitis 9612354 B27+ SpArth: Spondyliti s and periph arthropath [...] MTX. Return 6mo. Osteoarthr itis of knee 632674158 I suspect there is a little bit of post inflammato ry degenerati ve arthritis involving the knees. She is requesting physical therapy. I wrote out a physical therapy prescripti on and she will decide where she wants to get this done. If she needs a referral she may call here. [id number] Lesly Terrence, GENE-C , [facility], OFFICE [address] [facility] [place] [address] 02/03/2015 09:41:27 02/03/2015 10:43:49 Adult health examination [id number] see Risk Assessment and Lifestyle Change Counseling section above Ankylosing spondylitis 1591714 feels it has flared since she has [...] Skin - german ign mole and nevus 118181380 on left upper lip she recently was seen by dermatolog ist and cyrotherap y was performed she is to go back shortly and if area does not fall off she is to have the area shaved Urge incon tinence of urine 57955545 she has been to [facility] for biofeedbac k [id number] Jacqueline Connolly MD Rheumatol rhonda, [facility] [address] [facility] [place] [address] 02/20/2015 08:06:55 02/22/2015 13:55:38 Ankylosing spondylitis 4219855 B27+ SpArth: Spondyliti s and periph arthropath [...] least every other day. Long-term drug therapy [id number] on MTX. follow labs. On NSAID: discussed GI and CV risks. Add back omeprazole . [id number] MD WELLINGTON Gutierrez, [facility], OFFICE [address] [facility] [place] [address] 05/26/2015 12:46:43 05/26/2015 12:48:18 Influenza vaccine needed [id number] Jacqueline Connolly MD Rheumatol rhonda, [address] [place] [address] 1 09/05/2015 15:52:39 09/07/2015 12:44:08 Ankylosing spondylitis 1852053 M45.0 B27+ SpArth: Spondyliti s and periph arthropath y, systemic features. Started Enbrel September,. Now also on MTX and peripheral synovitis well supressed. Very little current back pain on meds. Check labs on MTX. Return for labs 3 mo, RV 6 mo. Osteoarthr itis of knee 864861145 M17.9 I suspect there is a little bit of post inflammato ry degenerati ve arthritis involving the R knee. Has mild flexion contractur e on the R. Refer (again ) for PT. Greater tr ochanteric pain syndrome 2482370 M70.62 Mild to moderate sx's. Offered local injection. She wants to wait and will call if inj needed. Long-term drug therapy 921240873 Z79.899 Z79.1 on MTX. follow labs. On NSAID: discussed GI and CV risks. omeprazole . [id number] MD WELLINGTON Gutierrez, [facility], OFFICE [address] [facility] [place] [address] 1 02/05/2016 09:06:41 02/05/2016 10:39:07 Screening for malignant neoplasm of cervix 395768570 Z12.4 Adult [facility] th examination 542707669 Z00.00 see Risk Assessment and Lifestyle Change Counseling section above. Pap performed today.5-yr colonoscop y due . Last mammogram 03/2015 and will do qyr vs qoyr at pt's discretion . Plan to update BDX at age 66. Allergic rhinitis 397780 04 J30.2 Active now with cough, itchy eyes and throat. Takes OTC Claritin prn. Ankylosing spondylitis 7974069 M45.0 Now on Embrel, rheum visits q6mos, prn steroid injections , labs q4mos. Down to two naproxen qhs. Primary pain sites R knee and R hip - positional , varies with amount of activity. No longer runs but walks, hikes. Rec PT for strengthen ing/balanc ing as already recommende d by Dr. Connolly. Constipati on by outlet obstruction 54298104 K59.02 No change in symptoms, bowel function. Has done pelvic rehab. Gastroesop hageal reflux disease 614245297 K21.9 In setting of po steroids and alendronat e use. Will not wean PPI at this time, but consider at each visit. [id number] Jacqueline Connolly MD Rheumatol [address] [address] 03/26/2016 13:22:53 04/08/2016 07:48:01 Ankylosing spondylitis 7521031 M45.0 B27+ SpArth: Spondyliti s and periph arthropath y, systemic features. Started Enbrel September,. Now also on MTX and peripheral synovitis well supressed. Very little current back pain on meds. Check labs on MTX. Return for labs 3 mo, RV 6 mo. Greater tr ochanteric pain syndrome 4983766 M70.62 Mild to moderate sx's. Offered local injection. She wants to wait and will call if inj needed.Try topical NSAID: samples of Pennsaid. If seems helpful can try to prescribe it or Voltaren gel. Long-term drug therapy 790428993 Z79.899 Z79.1 on MTX. follow labs. On NSAID: discussed GI and CV risks. omeprazole . [id number] Geoff Jang MD , [facility], OFFICE [address] [place] [address] 06/26/2016 09:52:34 06/27/2016 12:15:12 Active or passive immunization 100135306 Z23 [id number] Jacqueline Connolly MD [place] [place] [address] [address] 09/13/2016 08:14:37 09/16/2016 07:20:43 Ankylosing spondylitis 5487201 M45.0 B27+ SpArth: Spondyliti s and periph [...] 3 mo, RV 6 mo. Secondary osteoarthritis 221203679 M17.5 Post imflammato ry degenerati ve arthritis especially R knee.Getti ng PT and it is helping.No effusion today, but if swelling could come for steroid injection. Ultimately will probably come to knee replacemen t. discussed. Long-term drug therapy 866644545 Z79.899 Z79.1 on MTX. follow labs. On NSAID: discussed GI and CV risks. omeprazole . [id number] Sendy Spivey MD , [facility], OFFICE [address] [facility] [place], [place] [address] 02/11/2017 08:09:08 02/11/2017 10:27:29 Adult health examination 116249322 Z00.00 see Risk Assessment and Lifestyle Change Counseling section above Counseling 452731620 Z71 .9 Screening mammography 24 041035 Z12.31 Ankylosing spondylitis 3398956 M45.0 Now on Embrel, rheum visits q6mos, prn steroid injections , labs q4mos. Down to two naproxen qhs. Primary pain sites R knee and R hip - positional , varies with amount of activity. No longer runs but walks, hikes. Rec PT for strengthen ing/balanc ing as already recommende d by Dr. Connolly. Screening for malignant neoplasm of colon 983746238 Z12.11 Active or passive immunization 199615211 Z23 Osteopenia 601146296 M85 .80 [id number] Jacqueline Connolly MD Rheumatol rhonda, [facility] [address] [facility] [place] [address] 03/21/2017 08:43:31 04/07/2017 07:30:31 Ankylosing spondylitis 7667269 M45.0 B27+ SpArth: Spondyliti s and periph arthropath y, systemic features. Started Enbrel September,. Now also on MTX and peripheral synovitis well supressed. Very little current MSK pain on meds (aside from DJD knee). Try increasing the interval between Enbrel injections to 10 days. Check labs on MTX. Return for labs 3 mo, RV 6 mo. Long-term drug therapy 766612178 Z79.899 Z79.1 on MTX. follow labs. On NSAID: Low dose. discussed GI and CV risks. omeprazole qod.. Osteoarthr itis of knee 609163138 M17.9 I suspect there is post inflammato ry degenerati ve arthritis involving the R knee. Has mild flexion contractur e on the R. Not red or warm. PT home exercises. Also try topicals: Aspercreme with lidocaine and/or arnica gel. [id number] Sendy Spivey MD , [facility], OFFICE [address] [facility] [place] [address] 06/17/2017 06:57:48 06/18/2017 07:50:15 Active or passive immunization 377155383 Z23 [id number] Jacqueline Connolly MD Rheumatol og, [facility] [address] [facility] [place] [address] 10/03/2017 13:52:56 10/03/2017 14:19:31 Ankylosing spondylitis 3976936 M45.0 B27+ SpArth: Spondyliti s and periph arthropath y, systemic features. Started Enbrel September,. Now also on MTX and peripheral synovitis well supressed. Very little current MSK pain on meds (aside from DJD knee). Check labs on MTX. Return for labs 3 mo, RV 6 mo. Long-term drug therapy 450371602 Z79.899 Z79.1 on MTX.; recent labs all OK. Repeat in 3 mo On NSAID: Low dose. discussed GI and CV risks. omeprazole qod.. Osteoarthr itis of knee 766606244 M17.9 M17.11 I suspect there is post inflammato ry degenerati ve arthritis involving the R knee. Has mild flexion contractur e on the R. Not red or warm. Slowly progressiv e sxs.Doesn' t want anything done at present.Mi ght be good candidate for trial Supartz. Active or passive immunization 086141346 Z23 Discussed new Shingrix vaccine. Wait until it has been out a little longer to be sure it is safe, then advise she get this. She will discuss with Dr Spivey in January. [id number] Sara Arnold NP , [facility], OFFICE [address] [facility] [place] [address] 11/07/2017 11:10:24 11/07/2017 12:29:59 Pain in throat 190886425 R07.0 [id number] Sendy Spivey MD , [facility], OFFICE [address] [facility] [place], [place] [address] 02/25/2018 13:10:05 02/25/2018 14:55:02 Adult health examination 175316500 Z00.00 see Risk Assessment and Lifestyle Change Counseling section above Counseling 446901517 Z71 .9 Screening mammography 24 307284 Z12.31 Ankylosing spondylitis 9104431 M45.0 Now on Embrel, MTX and prn NSAID, with rheum visits q6mos, prn steroid injections , labs q4mo. Primary pain sites R knee and R hip - positional , varies with amount of activity. No longer runs but walks, hikes. Rec PT for strengthen ing/balanc ing as already recommende d by Dr. Connolly. Osteoarthr itis of joint of hand 13479298 M19.049 Constipati on by outlet obstruction 59630193 K59.02 No change in symptoms, bowel function. Has done pelvic rehab.Disc ussed Benefiber and increase in hs magnesium. Sleep disorder 60446448 G47.9 due to joint pain and nocturia. Not interested in medication and already has good sleep hygiene. [id number] Jacqueline Connolly MD Rheumatol og, [facility] [address] [facility] [place] [address] 04/06/2018 13:20:46 04/06/2018 13:40:15 Ankylosing spondylitis 1090797 M45.0 B27+ SpArth: Spondyliti s and periph [...] Enbrel. Check quantifero n gold. Knee pain 17656258 M25.5 69 Suspect significan t degree of post inflammato ry DJD. Check x ray. Has orthotic. should use them. Long-term drug therapy 119710057 Z79.899 Z79.1 on MTX.; recent labs all OK. Repeat in 3 mo On NSAID: Low dose. discussed GI and CV risks. omeprazole qod.. [id number] Anirudh Yin MD , [facility], OFFICE [address] [facility] [place] [address] 06/13/2018 08:40:22 06/15/2018 08:39:30 Active or passive immunization 109779310 Z23 [id number] Jacqueline Connolly MD Rheumatol og, [facility] [address] [facility] [place] [address] 10/05/2018 08:00:58 10/05/2018 08:23:00 Ankylosing spondylitis 8897568 M45.0 B27+ SpArth: Spondyliti s and periph [...] quantifero n gold. Osteoarthr itis of knee 884002161 M17.9 M17.11 I suspect there is post inflammato ry degenerati ve arthritis involving the R knee. Has flexion contractur e on the R. Not red or warm.Note apparent leg length difference . Slowly progressiv e sxs. Requests re-evaluat ion for orthotics at [facility]. Long-term drug therapy 601474568 Z79.899 Z79.1 on MTX.; recent labs all OK. Repeat in 3 mo On NSAID: Low dose. discussed GI and CV risks. omeprazole qod.. Take Naproxen with food. [id number] Sendy Spivey MD , [facility], OFFICE [address] [facility] [place] [address] 03/31/2019 10:06:52 04/16/2019 07:57:53 Adult health examination 383370020 Z00.00 see Risk Assessment and Lifestyle Change Counseling section above Continue 1000 units D3.Mammogr am due.Colono scopy is up to date.Revie wed vaccine recommenda tions - may get Shingrix despite being on MTX and Enbrel. Counseling 427564326 Z71 .9 Ankylosing spondylitis 7678486 M45.0 Now on Embrel, MTX and prn NSAID, with rheum visits q6mo, prn steroid injections , labs q4mo. Primary pain sites R knee and R hip and sacral - positional , varies with activity. Walks qd for exercise. Long-term drug therapy 900288196 Z79.899 Weaning dose MTX, on Enbrel. Gastroesop hageal reflux disease 909903645 K21.9 Has weaned from PPI without problems so far. 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 Hearing loss 85331762 H9 1.90 Does not desire hearing aids at this time. [id number] Jacqueline Connolly MD Rheumatol ogy, [address] [place], [place] [address] 04/05/2019 08:01:40 04/08/2019 15:39:35 Ankylosing spondylitis 6304237 M45.0 B27+ SpArth: Spondyliti s and periph arthropath y, systemic features. Started Enbrel September,. Also on MTX and peripheral synovitis well supressed. Very little current MSK pain on meds (aside from DJD knee). Continue Enbrel every 10 days. (she notes symptoms if she goes longer)Katharina ck labs on MTX. Return for labs 3 mo, RV 6 mo. Osteoarthr itis of knee 711364658 M17.9 M17.11 I suspect there is post inflammato ry degenerati ve arthritis involving the R knee. Has flexion contractur e on the R. Not red or warm.Note apparent leg length difference . Slowly progressiv e sxs, but not limiting enough to warrant surgical referral. Long-term drug therapy 770794710 Z79.899 Z79.1 on MTX.; recent labs all OK. Repeat in 3 mo On NSAID: Low dose. discussed GI and CV risks. omeprazole qod.. Take Naproxen with food. [id number] Mumtaz Espino DPM Podiatry, [facility] [address] [place] [address] 06/17/2019 09:18:02 06/17/2019 11:10:51 Onychomycosis 383201647 B35.1 Clinical evidence of fungus seen. Pt instructed to purchase formula 3 and apply to her toenails daily. She will purchase today. Depending on response to formula 3 decision will be made to either remove part or all of big toenail. All questions have been answered. RTC prn. Ingrowing toenail 225619 009 L60.0 Pain in toe 871295518 M7 9.069 [id number] Sendy Spivey MD , [facility], OFFICE [address] [place] [address] 06/23/2019 06:54:11 06/23/2019 10:56:49 Active or passive immunization 759306029 Z23 [id number] Shaun Taylor MD , [facility], OFFICE [address] [place] [address] 07/18/2019 10:01:37 07/18/2019 10:40:34 Viral gastroenteritis 763049678 A08.4 [id number] Anirudh Yin MD , [facility], OFFICE [address] [place] [address] 07/19/2019 13:06:42 07/19/2019 17:08:14 Viral gastroenteritis 198892673 A08.4 persistent , r/o bacterial infection- -ok to take loperamide --felt much better after IV NS, ondansetro n helped for nausea. Diarrhea o f presumed infectious origin 86208042 A09 Dehydration 16856993 E86 .0 [id number] Sendy Spivey MD , [facility], OFFICE [address] [place] [address] 07/30/2019 10:30:53 07/31/2019 09:04:14 Salmonella gastroenteritis 45312056 A02.0 with partial response to cefixime. Since she is not taking Enbrel or methotrexa te, may switch over to preferred fluoroquin olone and will proceed to full course. [place], but has access to health facilities if needed. Discussed antibiotic treatment may result in prolonged asymptomat ic carrier state (she does not work in [employer] services). Advised re: diet, proper hydration, signs and symptoms for which she should seek urgent treatment. f/u prn lack of resolution . [id number] Jacqueline Connolly MD Rheumatol [place], [address] [place], [place] [address] 10/05/2019 08:50:30 10/05/2019 09:28:41 Ankylosing spondylitis 1038536 M45.0 Non-radiog rraphic . (though last x [...] sooner if needed. Osteoarthr itis of knee 562020240 M17.9 M17.11 I suspect there is post inflammato ry degenerati ve arthritis involving the R knee. Has flexion contractur e on the R. Not red or warm.Note apparent leg length difference . Slowly progressiv e sxs, but not limiting enough to warrant surgical referral. Bilateral trochanteric bursitis 2890248766 4390360 M70.61 M70.62 Findings of bilat trochanter ic bursitis.W akes her up at night.Offe red injections . Deferred for now, but will call if she changes her mind. Note: Patient slender. No ultrasound needed for injection. Active or passive immunization 055243653 Z23 Got Shingrix.p neumonia up to date. Osteopenia 774465801 M85 .80 T= -2.3.Repea t scan 2020 [id number] Mel Francisco MD Rheumatol [place], [address] [place], [place] [address] 04/11/2020 09:12:46 04/12/2020 12:48:54 Ankylosing spondylitis 9554230 M45.0 Patient is off Enbrel and very [...] naproxen also discussed with patient. leighton labs. [id number] Sendy Spivey MD , [facility], OFFICE [address] [facility] [place] [address] 05/17/2020 08:10:42 05/17/2020 09:12:53 Adult health examination 943329050 Z00.00 see Risk Assessment and Lifestyle Change Counseling section above Counseling 720516226 Z71 .9 including cardiovasc ular risk reduction counseling Depression screening 171 303326 Z13.89 depression screening tool administer ed, entered into emr, scored and discussed, time greater than 7.5 minutes Screening for alcohol abuse 295850799 Z13.39 Screening mammography 24 765724 Z12.31 Urge incon tinence of urine 73704473 N39.41 Mixed hyperlipidemia 267 446466 E78.2 Ankylosing spondylitis 5820423 M45.9 Currently off medication s, about to restart. Allergic rhinitis 631975 04 J30.9 Manageable . [id number] Caroline Brito D.O. , [facility], OFFICE [address] [facility] [place] [address] 05/20/2020 09:28:38 05/20/2020 11:05:42 Active or passive immunization 519915207 Z23 [id number] Mel Francisco MD Rheumatol rhonda, [facility] [address] [facility] [place] [address] 07/18/2020 09:44:05 07/18/2020 12:52:38 Ankylosing spondylitis 0837609 M45.0 Continue Enbrel, decrease methotrexa te to 10 mg/week. Check labs for disease activity and medication toxicity (standing order).Pat ient to be careful, to use social distancing , mask and hygiene measures even at home as she lives with her grandchild rosi who go to school.Pat ient up to date on flu, pneumonia and shingrix vaccinatio n. [id number] Mel Francisco MD [facility] [address] 11/15/2020 09:36:18 11/15/2020 19:51:51 Ankylosing spondylitis 1057177 M45.0 Continue Enbrel, decrease methotrexa te to 10 mg/week. Check labs for disease activity and medication toxicity (standing order). Patient up to date on flu, pneumonia and shingrix vaccinatio n. Patient got the first COVID dose. Counselled to hold methotrexa te one week after the second dose. Long-term drug therapy 811378983 Z79.899 Patient is on Enbrel and MTX. Continue folic acid. Monitor labs. Hold Enbrel if fever or sign of infection. Hyperlipidemia 25065552 E78.5 Following with PCP. On diet. Trochanter ic bursitis of left hip 4607081037 27062 M70.62 [id number] MD Emily Kruger[address] [address] 01/31/2021 10:56:43 01/31/2021 14:52:37 Trochanteric bursitis of right hip 3419150585 51297 M70.61 Will inject with kenalog. [id number] Natasha Herbert MD , [facility], OFFICE [address] [place] [address] 06/14/2021 07:01:21 06/14/2021 16:17:31 Active or passive immunization 259437703 Z23 [id number] Mel Francisco MD Rheumatol rhonda, [address] [address] 02/21/2022 09:57:48 02/21/2022 10:35:52 Ankylosing spondylitis 7315367 M45.0 Continue Enbrel, increase methotrexa te to 10 mg/week as patient went down to 7.5 mg weekly and became more symptomati c. Check labs for disease activity and medication toxicity (standing order). Patient up to date on flu, pneumonia and shingrix vaccinatio n. Patient got the COVID series.Pat ient to get flu shot in the fall. RTC in 4 months. Long-term drug therapy 417237969 Z79.899 Patient is on Enbrel and MTX. Continue folic acid. Monitor labs. Hold Enbrel if fever or sign of infection. Patient to have a full skin check at the dermatolog ist. She has seen them 2 years ago. Pain of ri [facility] knee joint 7501891404 69604 M25.561 Will inject with kenalog.Re michelle to PT. Bilateral bursitis of hips 0469312783 9163870 M70.71 M70.[address] Lemos, possible US guided injections ? [id number] Charlie Lemos MD Sports Medicine, [facility] [address] [facility] [place] [address] 03/26/2022 09:38:41 03/26/2022 13:22:07 Pain of hip region 41597926 M25.551 M25.552 Guillermo is a 71-year-ol d [...] with me as needed for further care. [id number] Anisley gonzales, PT Physical Therapy, [address] [address] 04/25/2022 14:09:34 04/25/2022 15:36:07 Pain of right knee region 3211282587 88236 M25.306 [id number] Ainsley gonzales, PT Physical Therapy, [address] [address] 05/02/2022 13:01:16 05/02/2022 16:30:45 Pain of right knee region 4885332987 31343 M25.288 [id number] Ainsley gonzales, PT Physical Therapy, [address] [address] 05/16/2022 12:56:06 05/16/2022 13:37:10 Pain of right knee region 6436637446 65634 M25.194 [id number] Mel Francisco MD Rheumat[place] [facility], [address] [address] 06/24/2022 09:23:23 06/24/2022 09:54:08 Ankylosing spondylitis 9656070 M45.0 Continue Enbrel, methotrexa te and folic acid. Check labs for disease activity and medication toxicity. Patient got the COVID booster and the flu shot. Patient is aware that I am leaving the practice and will contact the rheumatolo practices listed on the letter to get an appointmen t. Long-term drug therapy 504073972 Z79.899 Patient is on Enbrel and MTX. Continue folic acid. Monitor labs. Hold Enbrel if fever or sign of infection. Patient had a full skin check at the dermatolog ist. She will be following- up with them. Pain of ri ght knee joint 0766190571 65262 M25.561 Continue with PT as it is helping. Bilateral bursitis of hips 5950638605 5157321 M70.71 M70.[address] Lemos for another injection. [id number] Ainsley gonzales, PT Physical Therapy, [facility] [address] [place] [address] 05/30/2022 10:30:26 05/30/2022 11:03:34 Pain of right knee region 2266411513 41285 M25.494 [id number] Jose Antonio Greco MD , [facility], OFFICE [address] [place] [address] 05/31/2022 09:02:52 05/31/2022 16:16:36 Adult health examination 297556403 Z00.00 see Risk Assessment and Lifestyle Change Counseling section above - generally very healthy and up to date with health maintenanc e. Encouraged to continue healthy habits and follow-up annually, sooner as needed. Colonoscop y - 2017 (10 yr recall), Will schedule mammo at [facility] (Due 09/2022). Deferred Td for today but will get at next visit Counseling 288179268 Z71 .9 including cardiovasc ular risk reduction counseling Depression screening 171 856502 Z13.31 depression screening tool administer ed, entered into emr, scored and discussed, time greater than 7.5 minutes Screening for alcohol abuse 316227635 Z13.39 discussed - no concerns Vaccine de clined by patient 5909855996 02 Z28.21 declined for today will be getting flu & booster tomorrow Screening mammography 24 003735 Z12.31 pt to schedule at [facility] Ankylosing spondylitis 0894431 M45.0 Stable - followed by rheum and has appt next month Urge incon tinence of urine 15554735 N39.41 Tried meds but didn't like them - does kegels and feels can live with sx Chronic constipation 236 156798 K59.09 manages with diet [id number] Maureen Mahajan MD FP, [facility], OFFICE [address] [place] [address] 06/27/2022 14:27:34 06/28/2022 06:53:44 Active or passive immunization 155481688 Z23 [id number] Ainsley gonzales, PT Physical Therapy, [facility] [address] [place] [address] 07/04/2022 09:15:16 07/05/2022 08:08:54 Pain of right knee region 3934145624 73454 M25.013 [id number] Salena Grady MD FP, [facility], OFFICE [address] [place] [address] 01/08/2023 09:41:06 01/08/2023 11:58:44 Acute upper respiratory infection 70106559 J06.9 Symptoms ongoing x 3 days.Had fevers [...] visit if symptoms not improving or worsening. [id number] Maureen Mahajan MD , [facility], OFFICE [address] [place] [address] 06/06/2023 13:35:03 06/06/2023 14:48:58 Adult health examination 496119719 Z00.00 see Risk Assessment and Lifestyle Change Counseling section above - generally very healthy and up to date with health maintenanc e. Encouraged to continue healthy habits and follow-up annually, sooner as needed. Colonoscop y - 2017 (10 yr recall), Depression screening 171 014334 Z13.31 depression screening tool administer ed Screening for alcohol abuse 592781866 Z13.39 Alcohol use screening tool administer ed Osteopenia 470137648 M85 .89 due for bone density - will get at [facility] which is where her rheumatolo gist is located Ankylosing spondylitis 5953785 M45.0 Stable - followed by rheum and on Enbrel and methotrexa te - labs done q 4 mos - will call rheum to get ov notes and lab results Osteoarthr itis of joint of hand 32823958 M19.049 Arthritis hands/knee s - stable Major depr ession, melancholic type 375224468 F32.9 Situationa l related to marital stress. Pt engaged in therapy. Discussed if sx not settling down, could consider medication . Pt to f/u prn [id number] Maureen Mahajan MD , [facility], OFFICE [address] [place] [address] 12/18/2023 08:49:16 12/18/2023 09:09:21 Major depressive disorder 336876215 F32.9 pt contracted for safety, advised of crisis services availables tart sertraline 50 mg dailyfollo wup 2-3 weeks me or BGcall if concernsdi scussed use/SE/exp ectations [id number] Maureen Mahajan MD , [facility], OFFICE [address] [place] [address] 01/01/2024 09:45:08 01/01/2024 10:00:33 Major depressive disorder 097113897 F32.9 pt contracted for safety, advised of crisis services availablei ncrease sertraline to 100 mgfollowup 2 weeksconti nue with counsellin agusto if concerns [id number] Maureen Mahajan MD , [facility], OFFICE [address] [place] [address] 01/15/2024 08:27:26 01/16/2024 09:22:21 Major depressive disorder 934139014 F32.9 pt feels good at this dose, doesnt wish to increaseof fered followup, declined at this timecontin ue with counsellin agusto if concerns [id number] Geoff Jang MD FP, [facility], OFFICE [address] [place] [address] 02/06/2024 13:56:08 02/09/2024 13:24:05 Acute conjunctivitis 58660348 H10.33 discussed prev of transmissi on to others.rain ps as directed - report persistent or inc sx.advised re UC hours on weekend and night call. Pain in throat 232816493 R07.0 Streptococ yohan sore throat 98314615 J02.0 treat strep with Keflex (PCN interactio n with MTX) - call if sx persist or increasead vise close contacts. [id number] Salena Grady MD , [facility], OFFICE [address] [place] [address] 06/07/2024 10:00:19 06/07/2024 10:57:55 Adult health examination 090634154 Z00.00 Depression screening 171 872207 Z13.31 depression screening tool administer ed Screening for alcohol abuse 517648970 Z13.39 Alcohol use screening tool administer ed Major depr essive disorder 259085436 F32.9 related to 's infidelity continue sertraline , trial back down to 100mg dosecontin ue w/ therapyf/u prn Advance di rective discussed with patient 869021381 Z71.89 Advanced Care Planning 1. Advanced care planning was discussed for less than 15 minutes. 2. Participan ts included patient and they were given an opportunit y to decline discussion . 3. Health Care Proxy was discussed. 4. Patient has completed Health Care Proxy form. It was not given to take home. 5. Names(s) relationsh ip(s) of Health Care Proxy: 6. MOLST was discussed. 7. Patient has not completed MOLST form. 8. Details of discussion : was given for pt to take home and consider 9. Follow up needed: prn Mixed hyperlipidemia 267 774195 E78.2 Ankylosing spondylitis 1717953 M45.0 in care w/ rheumconti nue enbrel and methotrexa te Osteopenia 365229170 M85 .80 continue w/ weekly alendronat emanaged by rheumstart ed tx 09/2023 [id number] BRUCE VUONG, DO [place], [facility], OFFICE [address] [place] [address] 06/15/2024 09:15:04 06/16/2024 11:09:25 Insect bite, nonvenomous, of chest wall 957070958 S20.96XA You have had a deer tick [...] in the next 6 weeks. Tick bite 84313112 W57.X XXA SEE ABOVE FOR MORE INFORMATIO N. CHANGE DIAGNOSIS TO W57.XXD IF SUBSEQUENT . Health Concerns Section Related Observation LastModified by Organization Detai ls LastModified Time None Recorded Concern Status LastModified by Organization Details LastModified Time None Recorded Advance Directives Directive Y: Payers Encounter Date Sequence Insurance Name Policy Number Policy Baez Covered Member ID Baez Member ID Guarantor Name 01/01/2024 1 [facility]: MEDICARE HMO BLUE (MEDICARE REPLACEMENT HMO) [id number] Guillermo Strong [id number] Guillermo Strong 01/15/2024 1 [facility]: MEDICARE HMO BLUE (MEDICARE REPLACEMENT HMO) [id number] Guillermo Strong [id number] Guillermo Strong 02/06/2024 1 [facility]: MEDICARE HMO BLUE (MEDICARE REPLACEMENT HMO) [id number] Guillermo Strong [id number] Guillermo Strong 06/07/2024 1 [facility]: MEDICARE HMO BLUE (MEDICARE REPLACEMENT HMO) [id number] Guillermo Strong [id number] Guillermo Michael Strong 06/15/2024 1 [facility]: MEDICARE HMO BLUE (MEDICARE REPLACEMENT HMO) [id number] Guillermo Rodriguez Tae [id number] Guillermo Michael Tae Notes Date Note Type Note Provider Name [...] trees with sticks, etc. Maureen Mahajan MD [address] [place] [address], [phone], [facility] 01/01/2024 10:00:53 01/15/2024 text/html 01/15/24 for followup depression. feeling more stable, less traumatized. No crying in 2 weeks No side effects. Maureen Mahajan MD [address] [place] [address], [phone], [facility] 01/15/2024 08:41:13 02/06/2024 text/html Pt here today fo r c/o conjunctivitis sx's x 1 week , states has been ongoing 10 days, had a bad sore throat initially that improved with saline gargles.crusting both eyes - has to clean them off during the night when she gets up to bathroom.no contact lenses or makeup Ana Rosa Gregg NP [address] [place] [address], [phone], [facility] 02/06/2024 14:51:17 06/07/2024 text/html Physical Exam/FemaleReported bypatient.PHAPatient [...] sertraline dose is a bit too much, jose daniel church R TKR scheduled 10/12/23feeling better after recent cortisone shot sees Dr [facility] for annual skin checks 2 daughters, 3 grandchildren exercise - yoga and strength training, walking Mammo: 4Colonoscopy: 05/23/2017Bone Density: 07/10/2023 Recent Labs: none Proxy in chart dated 08/18/2017MOLST not in chart Maureen Mahajan MD [address] [place] [address], [phone], [facility] 06/10/2024 12:18:18 06/15/2024 text/html Tick BiteReporte d bypatient.Location:he ad; face Duration:has noted for <2 days Ticktick engorged Pt presents for ? tick bite on L foreheadNoticed first yesterdayDenies lyme sx - fever, chills, body aches, etc. BRUCE VUONG DO [address] [place], [phone], [facility] 06/16/2024 07:58:16 OBGyn Episode No OBEpisode recorded.
== END 2025-02-09 14:08 | disposition home or self-care (01) ==
LOC: HO.RHE 13:02
PROVIDERS: PCP Family Medicine; Visit Provider Student in an Organized Health Care Education/Training Program
DX: M45.0 Ankylosing spondylitis of multiple sites in spine (principal); M85.88 Other specified disorders of bone density and structure, other site; M17.0 Bilateral primary osteoarthritis of knee; Z51.81 Encounter for therapeutic drug level monitoring; Z79.620 Long term (current) use of immunosuppressive biologic; Z79.631 Long term (current) use of antimetabolite agent; M17.11 Unilateral primary osteoarthritis, right knee
CPT/HCPCS: 20610; 99215

== ENCOUNTER → 2025-02-09 13:01 | Outpatient (BNVA) | payer MEDICARE, SELFPAY | PROVIDERS: PCP Family Medicine; Visit Provider Student in an Organized Health Care Education/Training Program | DX: M17.11 Unilateral primary osteoarthritis, right knee (principal); M17.12 Unilateral primary osteoarthritis, left knee; M85.80 Other specified disorders of bone density and structure, unspecified site; M45.9 Ankylosing spondylitis of unspecified sites in spine | CPT/HCPCS: 20610; 99212; J2003; J3300 ==

== ENCOUNTER 2025-04-01 12:45 | Outpatient (RCR) | payer MEDICARE, SELFPAY ==
[2025-03-29 13:43] VITALS: BP 122/60; PULSE 68; TEMP 36.9; BMI 20.4
--- NOTE | 2025-03-29 15:14 | PC.ADMIT ---
Patient is a 74 year old female who was recently hospitalized at [facility] s/p overdose on medications secondary to husbands affair that she found out about two years ago. Patient reports she gets very angry and explosive at her and has anxiety regarding what to do about her marriage. Patient was inpatient from 02/19-02/21/25. I requested records including discharge summary from [facility]. I was told that patient was in the ICU. No record of behavioral health inpatient LOC after ICU stay. According to [facility] staff Fabiola patient was told, while in the hospital, if she agrees to go to [facility] she could discharge from the hospital. Patient reports prior to inpatient LOC she took overdose of medication and then told her and was taken to the hospital. Regarding the overdose patient stated, I feel shame and guilt that I thought only of myself and not my family . Patient denied SI and HI. Stated she could not do that to her her daughter and her grandchildren. She was given a copy of her safety plan if needed. Patient reports her is currently holding on to her medications as a precaution. Patient stated she is not sure if the PHP is a good fit for her as she is [place] and recently got hearing aids. When in a large group of people she reports she has a difficult time hearing. Stated she has a f/u appointment regarding hearing aids tomorrow and hopes to get an adjustment to improve hearing. Patient is alert and oriented x4. She is calm and cooperative. Thoughts were logical and clear. She presented with depressed mood and anxious affect. Medications updated with patient and patient's pharmacy. Patient reports taking medications as prescribed. Patient is unsure at this point if she is going to stay with her . She stated she is thinking of having him move out of the house since it is her home that they live in.
--- NOTE | 2025-03-30 11:01 | HO.PS.ADMBH ---
HPI Date of Service: 03/29/25 Chief Complaint: SI Sources of Information: patient interviewed, chart reviewed and crisis/core team assessment reviewed HPI Narrative: This is a 74 yo female, breast cancer survivor, who was referred to PHP as a stepdown from IPLOC at [facility] in 01/2025 status post suicide attempt in the context of marital stressors. Patient shares that she had discovered 2 years ago that her had been maintaining an on again off again affair for almost 26 years. She relays struggling with feeling satisfied now with her marriage. Initially she had initially entertained thoughts about leaving, and gave herself some time to explore wwhat her options were. HOwever over tiem, she realizes how enmeshed they are (property, their grown children, provider support babysitting their grandchildren) and was feeling that over time, she was increasingly feeling that she did not have options. She relays that this sense of helplessnes, as well as unresolved anger and betrayal still weigh heavily in her. She especially notes how she had always taken care of everything in the home through the entirety of their marriage, which likely further enabled him to engage in a halfway affair. I was in a very limited mindset. I couldnt imagine having to continue staying in my marriage, but are family is close and we spend a lot of time with our grandchildren... stating she does not want to compromise the time with her family and feel leaving her would only cause undo cause strain to the family. After spending the last 2 years anticipating a some resolution or making a decision (in her marriage) she started to realize there was no clear best option (as to whether to leave the marriage or make it work, but relays that forgiving him and trusting him, and was feeling trapped. SHe notes that she overdosed on the wrong medication . NOnethless she said she is no longer having any suicidal thoughts or wish to not be alive. I have had many discussion with my childre n...they have been very supportive and understanding? 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 care drug therapy Urge incontinence Sleep disorder Ankylosing spondylitis DJD (degenerative joint disease) Constipation GERD (gastroesophageal reflux disease) Allergic rhinitis IBS (irritable bowel syndrome) Narrative: Overall healthy No chronic health conditions No h/o medical hospitalization for illness or injury Surgeries: denies Seizures: denies Concussions/TBI: denies Ht: 5'7 Wt: 130 lbs ALL: codeine, isoniazid, cephalexin Surgical History No history of previous surgery Social History: , lives at home with Has grandchildren who are identified as protective factors [facility] COmpleted Masters degree Substance History: very limited alcohol use (wine <2x/week) Trauma History: feels traumatized by the her 's infidelity and being lied to for so long Diagnostics Vital Signs (24Hr): Vital Signs - 24 hr 03/29/25 13:43 Temperature 98.4 F Pulse Rate 68 Blood Pressure 122/60 BMI result Body Mass Index 20.4 Meds/Allergies Meds Home Medications ?Medication ?Instructions ?Recorded ?Confirmed ?Type omega 4-jpy-qim-fish oil 1,000 mg 1 cap PO BID 09/03/22 03/29/25 History (120 mg-180 mg) capsule (Fish Oil) calcium 600 mg capsule 650 mg PO BID 03/29/25 03/29/25 History magnesium 200 mg tablet 400 mg PO DAILY 03/29/25 03/29/25 History methotrexate sodium 2.5 mg tablet 7.5 mg PO QWEEK 03/29/25 03/29/25 History multivitamin 1 tab PO DAILY 03/29/25 03/29/25 History sertraline 50 mg tablet 50 mg PO DAILY 03/29/25 03/29/25 History Allergies Allergies Allergy/AdvReac Type Severity Reaction Status Date / Time codeine Allergy Intermediate NAUSEA/VOMI Verified 02/09/25 13:15 TING isoniazid Allergy Intermediate LFT Verified 02/09/25 13:15 ABNORMALITY cephalexin Allergy Mild Hives Verified 02/09/25 13:15 Mental Status Exam Mental Status Exam Narrative: Alert, oriented, in no acute distress. Calm, cooperative, engaged. No psychomotor agitation or neurovegetative retardation. Eye contact maintained. Mood depressed, affect blunted. Speech normal. Thought process linear, coherent. Thought content related to stressors, transient hopelessness, denies SI or HI. No paranoia or delusional content elicited. No evidence of psychosis. Insight and judgment - fair but adequate. Assessment & Plan Assessment & Plan (1) Unspecified mood [affective] disorder: Status: Acute Code(s): F39 - Unspecified mood [affective] disorder (2) PTSD (post-traumatic stress disorder): Status: Acute Code(s): F43.10 - Post-traumatic stress disorder, unspecified Plan Admit to [facility] VS reviewed: afebrile, BP 122/60;68? bpm start ABilify 1 mg qd continue regular medications for now Routine lab work as indicated EKG, routine for baseline QTc for medication considerations as indicated UDS as indicated MassPat reviewed Continue to monitor as per protocol Patient educated on: diagnosis and medication risk/benefits Informed Consent: understands Reason for continued partial hosp. stay Substantial Risk for: harm to self, inability to function, rapid decompensation and med/psych decompensation Certification I certify that partial hospital treatment is medically necessary due to the symptoms and problems resulting from the patient's mental illness and the failure to treat the patient at the partial hospital level of care would likely result in the patient requiring inpatient psychiatric care which could not be prevented at a less intensive level of care. Time Spent With Patient Time: Total time managing care of this patient today _90___ minutes.
--- NOTE | 2025-03-30 15:42 | HO.PHP ---
General Farm Manager met with Guillermo for roughly 30 minutes at 2:00 to assess for safety. Pt expressed she is depressed, states she has a lot of anger and triggered when the infidelity comes up. Pt tried to hold it back but could not. Expressed strong feelings of hurt resulting from her husbands infidelity without prompting. When asked if she was currently experiencing SI pt stated she has not had any suicidal thoughts, stated she has been feeling good because she just came back from a two week Vacation with her family but being here is bringing up all the negative feelings again. Guillermo shared the day of the suicide attempt she was overwhelmed with depression and had just gotten into an argument with her and felt taking the pills was her only way out. After the attempt said she promised her daughter that she would not do it again, said she regrets it after realizing it would have destroyed her grandchildren if she was successful but then a few minutes into the conversation she said she wishes she had been successful. But then again denied current SI. General Farm Manager and pt spoke about what she can do in the moment if she felt triggered to that degree again, and how to avoid getting to to that point, identified good supports, pt and copy writer also talked about how to not feel triggered when she?s here at [facility], explored shifting her focus from the infidelity to what she can control so she doesn?t leave [facility] feeling badly. Said she felt really bad yesterday when she got home, because of talking about it all day. Pt agreed today instead of going straight home, she is going to go get her hearing aids checked. She agreed to keep coming to [facility] if it doesn?t make her feel worse. And Will be back tomorrow.
--- NOTE | 2025-03-31 16:08 | HO.PHP ---
Pt's case has been opened and reviewed in treatment team.
--- NOTE | 2025-04-01 22:23 | HO.PHPPROGNO ---
Subjective Subjective Date of Service: 04/01/25 Reason For Visit: SI Interim History: Patient seen for follow-up, patient requesting discharge. She anticipates that this program is really not what I am looking for . She feels there are a lot of acute issues, that are overwhelming and after sitting through the full day of groups, hearing about other people's traumatic stories yesterday, I'm all set . States that she is at a place where she needs just some space to reflect on her family and some decisions she needs to make in regards to her marriage. She started on Abilify 2 mg lst night and says she tolerated this well, denies any adverse effects. Was able to sleep well, denies any anxiety today. Mood is I feel much more at a level . Denies any hopelessness, helplessness or SI. Reports no acute issues or concerns. Medication compliant, medications well-tolerated. Denies any adverse effects.? Mood is stable.? Denies any hopelessness or SI. Denies thoughts of harming self or others at this time. Denies any aggressive ideation or HI. Denies any paranoia or AH or VH. Sleep, appetite, energy stable. Medication Compliance: Yes Side effects from medications: No Attending Groups: Yes Review of Systems Acute medical concerns: No Mental Status Exam Mental Status Exam Narrative: Alert, oriented, in no acute distress. Calm, cooperative. Mood stable, affect appropriate. Speech normal. Thought process linear, coherent, more goal-directed. Thought content related to stressors, future-oriented, denies any helplessness, hopelessness or SI.? No aggressive ideation or HI. No paranoia or delusional content elicited. No evidence of psychosis. Insight and judgment fair-good. Diagnostics Vital Signs (24Hr): BMI result Body Mass Index 20.4 Assessment & Plan Assessment & Plan (1) Unspecified mood [affective] disorder: Status: Acute Code(s): F39 - Unspecified mood [affective] disorder (2) PTSD (post-traumatic stress disorder): Status: Acute Code(s): F43.10 - Post-traumatic stress disorder, unspecified Plan Discharge from [facility] Continue regular medications? Refills sent to pharmacy Will defer further medication management to outpatient provider *Safety plan reviewed *Discharge diagnoses, treatment course, discharge plan have been reviewed with patient (including medication regime, medication management, potential side effects) as well as treatment rationale were also revisited *Discharge paperwork signed and given to patient, copy sent for scanning to chart Patient educated on: diagnosis and medication risk/benefits Informed Consent: understands Reason for contiued partial hosp. stay Substantial Risk for: stable for discharge Certification I certify that partial hospital treatment is medically necessary due to the symptoms and problems resulting from the patient's mental illness and the failure to treat the patient at the partial hospital level of care would likely result in the patient requiring inpatient psychiatric care which could not be prevented at a less intensive level of care. Total time managing care of this patient today _30___ minutes. Discharge Plan Discharge Attending provider: Cathy Nowak Medications: New aripiprazole 2 mg tablet 2 mg PO BEDTIME Qty: 14 0RF aripiprazole 5 mg tablet 5 mg PO DAILY Qty: 14 0RF Continued alendronate 70 mg tablet 70 mg PO QWEEK Qty: 12 1RF Enbrel SureClick 50 mg/mL (1 mL) pen injector 50 mg subcut QWEEK Qty: 4 5RF folic acid 800 mcg tablet 0.8 mg PO DAILY Qty: 90 1RF methotrexate sodium 2.5 mg tablet 7.5 mg PO QWEEK Rx Instructions: Patient stated she is currently taking 3 tabs a week. multivitamin Tablet 1 tab PO DAILY sertraline 50 mg Tablet 50 mg PO DAILY magnesium 200 mg Tablet 400 mg PO DAILY omega 9-lkd-wxd-fish oil [Fish Oil] 1,000 mg (120 mg-180 mg) capsule 1 cap PO BID No Action calcium 600 mg Capsule 650 mg PO BID Patient Education: Depression (DC), PTSD (Post Traumatic Stress Disorder) (ED), PTSD (Post Traumatic Stress Disorder) (DC) Print Language: Tongan
== END 2025-04-01 23:59 | disposition home or self-care (01) ==
LOC: HO.PHPA 12:45
PROVIDERS: Visit Provider Psychiatry & Neurology Psychiatry
DX: F43.10 Post-traumatic stress disorder, unspecified (principal); F39 Unspecified mood [affective] disorder; Z79.899 Other long term (current) drug therapy
CPT/HCPCS: 90791; 90853

== ENCOUNTER 2025-07-05 13:59 | Outpatient (AMB) | payer MEDICARE, SELFPAY ==
--- NOTE | 2025-07-05 14:25 | A.OFFVIS_ITS ---
Vital Signs 07/05/25 14:32 Height 5 ft 7 in Weight 132 lb 15.02 oz BMI 20.8 BP 115/64 Blood Pressure Location Lt brachial Position Sitting Pulse 72 Pulse Source Pulse Oximeter Pulse Oximetry (%) 97 Oxygen Delivery Method Room Air Intake Visit Reasons: Follow up Intake Note: Patient present for follow up. Allergies codeine Allergy (Intermediate, Verified 02/09/25 13:15) NAUSEA/VOMITING isoniazid Allergy (Intermediate, Verified 02/09/25 13:15) LFT ABNORMALITY cephalexin Allergy (Mild, Verified 02/09/25 13:15) Hives Medication List - Last Reconciled 07/05/25 by Deedee Plunkett MD alendronate 70 mg PO QWEEK aripiprazole 5 mg PO DAILY aripiprazole 5 mg PO BEDTIME calcium 650 mg PO BID etanercept (Enbrel SureClick) 50 mg subcut QWEEK folic acid 0.8 mg PO DAILY magnesium 400 mg PO DAILY methotrexate sodium 7.5 mg PO QWEEK multivitamin 1 tab PO DAILY omega 1-hqr-laf-fish oil 1,000 (120-180) mg (Fish Oil) 1 cap PO BID sertraline 50 mg PO DAILY HPI Comments Details: Patient is a 74-year-old female with history of latent TB status post INH treatment in 2009, ankylosing spondylitis, polyarticular osteoarthritis, and osteopenia with high fracture index here today for follow up Interval History: Patient last seen 02/09/25 with me - On alendronate 70mg weekly, Methotrexate 7.5mg weekly, Folic acid 0.8mcg, Enbrel 50mg every 8 days - Patient has been doing well on the decrease of 7.5mg - No flares of her ankylosing spondylitis - Complaining of right knee pain today - Given steroid injection Today - On alendronate 70mg weekly, Methotrexate 7.5mg weekly, Folic acid 0.8mcg, Enbrel 50mg every 8 days - Right knee injection helped, hoping this can be repeat - Doing well overall - Finds that when she stands after prolonged sitting it takes a while for her to get going without pain, this also happens in the middle of the night when she is getting up to pee Rheumatologic History: HLA B27 positive, diagnosed 2009 - She was initially diagnosed with PMR in 2006 and symptoms appropriately responded to steroids however she developed peripheral arthritis, she was then diagnosed as HLA B B27 positive ankylosing spondylitis and started on Enbrel, soon after methotrexate was added due to recurrent right knee effusion. Enbrel started 2009 Methotrexate added 2010 Initial history: This is a 72-year-old female presents for evaluation of HLA B27 positive spondylitis as a new patient. 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 The condition started in 2006 and was initially diagnosed as PMR, symptoms appropriately responded to prednisone however once prednisone was tapered patient developed peripheral arthritis. In 2009 she was diagnosed as HLA B27 positive spondylitis. She was started on Enbrel with good response however she developed recurrent right knee effusion and methotrexate was added. She has been on Enbrel and methotrexate since 2010 with relatively good control of her symptoms. No history suggestive of uveitis or inflammatory bowel disease. Patient's main complaint today is right knee pain. Patient has had chronic right knee pain. She has had about 7 intra-articular cortisone injections in the past which provided some relief. Last injection was in June which gave her relief for 6-8 weeks. She has been going to physical therapy for her knee for 3 months during the fall without improvement. She has difficulty walking. She also was diagnosed with bilateral hip trochanteric bursitis and received steroid injections in the past which do provide some relief. 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 Systems Narrative Review of Systems Constitutional: Denies fever, chills, weight loss ENT: Denies vision changes, eye pain or eye redness, dental caries, dry mouth GI: Denies nausea, vomiting, diarrhea, abdominal pain, change in BM Pulm: Denies SOB, MATTSON, hemoptysis, wheezing Cards: Denies chest pain, palpitations Skin: Denies Raynaud's, rash, nail changes, photosensitivity, STEEL MELTER: Denies headaches, weakness, paresthesias, recurrent falls MSK: as per HPI All other systems reviewed and are unremarkable except noted above Physical Exam Exam Exam: Vital signs reviewed Physical Examination CONSTITUITIONAL Patient alert and cooperative. Well appearing and in no apparent painful distress MSK Hands * Right Hand: Able to make a fist. No swelling or tenderness to palpation of the MCPs, PIPs or DIPs. * Left Hand: Able to make a fist. No swelling or tenderness to palpation of the MCPs, PIPs or DIPs. * Herbedens nodes noted bilaterally Wrists * Right Wrist: Full ROM to flexion and extension. No swelling or TTP * Left Wrist: Full ROM to flexion and extension. No swelling or TTP Elbows * Right Elbow: Full ROM. No swelling or TTP. No TTP of the medial epicondyle. No TTP of the lateral epicondyle * Left Elbow: Full ROM. No swelling or TTP. No TTP of the medial epicondyle. No TTP of the lateral epicondyle Shoulders * Right shoulder: No swelling noted. No TTP of the AC joint. No TTP of the subacromial bursa. No TTP of the posterior shoulder * Left shoulder: No swelling noted. No TTP of the AC joint. No TTP of the subacromial bursa. No TTP of the posterior shoulder * Decreased ROM Knees * Right knee: Mild swelling. No TTP of the knee joint line. No TTP of pes anserine bursa * Left knee: No swelling noted. No TTP of the knee joint line. No TTP of pes anserine bursa. * Decreased ROM bilaterally particularly to extension, right >left Ankles * Right ankle: Good ankle dorsiflexion and plantar flexion. No swelling. No TTP of the ankle joint * Left ankle: Good ankle dorsiflexion and plantar flexion. No swelling. No TTP of the ankle joint Feet * Right foot: Negative squeeze test * Left foot: Negative squeeze test Tender points? * No tenderness to palpation of the bilateral trapezius, supraspinatus, anterior costochondral junctions, bilateral suboccipital muscle insertions SKIN No rashes Vital Signs: Last Vital Signs Pulse 72 07/05/25 14:32 BP 115/64 07/05/25 14:32 Pulse Ox 97 07/05/25 14:32 Oxygen Delivery Method Room Air 07/05/25 14:32 BMI result Body Mass Index 20.8 Results Reviewed Results Reviewed: 05/24/25 VMG WBC 3.91 Hb 12.0 Plt 257 BUN 15 Cr 0.6 eGFR >60 AST 20 ALT 29 Laboratory Tests 02/01/25 11:10 Hepatitis A IgM Ab Nonreactive Hep Bs Antigen Negative Hep Bs Antibody REACTIVE Hep B Core Total Ab Nonreactive Hepatitis C Ab (EIA) Nonreactive TB Test (T-Spot) Com Borderline A DEXA 07/2023 FINDINGS: LEFT FEMUR, NECK: BMD 0.723 g/cm2, Z-score -0.3, T-score -2.3, osteopenia. LEFT FEMUR, TOTAL: BMD 0.808 g/cm2, Z-score 0.2, T-score -1.6, osteopenia. AP SPINE L1-L4: BMD 1.107 g/cm2, Z-score 1.4, T-score -0.6, normal. FRAX 15.4/4.5% Assessment & Plan Assessment & Plan (1) Ankylosing spondylitis: Comment: HLA B27 positive, diagnosed 2009 Enbrel started 2009 Methotrexate added 2010 Code(s): M45.9 - Ankylosing spondylitis of unspecified sites in spine Category: Medical Qualifiers: Ankylosing spondylitis location: unspecified site of spine Qualified Code(s): M45.9 - Ankylosing spondylitis of unspecified sites in spine Plan: #Ankylosing spondylitis Patient is a 74-year-old female with HLA B27 ankylosing spondylitis here today for follow up. Currently in remission on Enbrel and methotrexate. Plan - Enbrel 50mg every 8 days SC - Methotrexate 7.5mg weekly - Folic acid 0.8mg daily - RTC 5 months - Labs before visit: CBC, CMP, ESR, CRP, Vit D (2) Osteopenia with high risk of fracture: Comment: DEXA 07/2023. AP Spine -0.6, Left femur neck -2.3, Left femur total -1.6. FRAX 15.4/4.5 Alendronate 08/2023 Code(s): M85.80 - Other specified disorders of bone density and structure, unspecified site Category: Medical Plan: #Osteopenia Currently on alendronate therapy and tolerating medication. No falls or fractures Plan - Vit D supplementation - Alendronate 70mg PO weekly - DEXA 07/2025 (3) Bilateral primary osteoarthritis of knee: Code(s): M17.0 - Bilateral primary osteoarthritis of knee Category: Medical Plan: #Bilateral knee OA Especially in the right knee. Status post steroid injection today. 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 Plan: #Long-term Use of TNF Inhibitors: Etanercept Discussed with the patient the benefits and risks of TNF inhibitors for the management of the rheumatic condition Benefits include reduce pain, maintenance of remission and reduction of flares as well as ?progression of the disease Risks include injection sites/infusion reactions, serious infections (such as bacterial infections, opportunistic infections), malignancy, delaminating syndromes, autoimmune phenomena, CHF exacerbations, palmar plantar psoriasis and cytopenias Recommended rotating injection sites, and holding medication during and for up to 1 week after resolution of a febrile illness or open skin wound (5) Encounter for methotrexate monitoring: Code(s): Z51.81 - Encounter for therapeutic drug level monitoring; Z79.631 - longterm (current) use of antimetabolite agent Plan: #Long-term Current Use of Methotrexate Discussed with patient the benefits and risks of methotrexate for managing their rheumatic condition Benefits include reduced pain, reduced mortality, maintenance of remission and reduction of flares Risks include oral ulcers, photosensitivity, hepatotoxicity, hematologic toxicity, pneumonitis, flu-like symptoms (especially day after administration), nodulosis, lymphomas ? Limit alcohol and avoid Bactrim ? 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 Panel 5 Months Deedee Plunkett MD Z79.899 - Other longterm (current) drug therapy C Reactive Protein 5 Months Deedee Plunkett MD Z79.899 - Other longterm (current) drug therapy XR DEXA axial skeleton Today Deedee Plunkett MD M81.0 - Age-related osteoporosis without current pathological fracture Medications: Changed From aripiprazole 2 mg PO BEDTIME 14 tabs 0RF DIRECTED To aripiprazole 5 mg PO BEDTIME Cathy Nowak MD From methotrexate sodium Patient stated she is currently taking 3 tabs a week. 7.5 mg PO QWEEK M45.9 - Ankylosing spondylitis of unspecified sites in spine To methotrexate sodium 7.5 mg (3 x 2.5 mg) PO QWEEK 39 tabs 1RF 90 days M45.9 - Ankylosing spondylitis of unspecified sites in spine Deedee Plunkett MD Refilled etanercept (Enbrel SureClick) 50 mg subcut QWEEK 4 mL 5RF Deedee Plunkett MD M45.9 - Ankylosing spondylitis of unspecified sites in spine alendronate 70 mg PO QWEEK 12 tabs 1RF Deedee Plunkett MD folic acid 0.8 mg PO DAILY 90 tabs 1RF Deedee Plunkett MD Coding Level of Care Code Est Pt Level 4 (92802) Complex EM visit Add On G2211 Diagnoses Ankylosing spondylitis, unspecified site of spine M45.9 Ankylosing spondylitis location: unspecified site of spine Osteopenia with high risk of fracture M85.80 Bilateral primary osteoarthritis of knee M17.0 Encounter for monitoring of etanercept therapy Z51.81; Z79.620 Encounter for methotrexate monitoring Z51.81; Z79.631
[2025-07-05 14:32] VITALS: BP 115/64; PULSE 72; O2SAT 97; BMI 20.8
--- OUTSIDE RECORDS SUMMARY | 2025-07-05 17:02 | XMS_ITS | Clinical Summary ---
Author Organization [facility] Address [address] [place] [id number] Phone Care Team Providers Care Checker And Packer Name Role Phone Roxane Preston DO Primary Care Provider Allergies Active Allergy Reactions Criticality Noted Date Comments Cephalexin 09/03/2024 Codeine Nausea and/or Vomiting 11/15/2022 Vomit Isoniazid 11/15/2022 Medications etanercept (ENBREL MINI) 50 mg/mL (1 mL) subcutaneous injection 50 mg once a week. Active methotrexate 2.5 MG Oral tablet Take 15 mg by mouth once a week. 3 Active alendronate (FOSAMAX) 70 MG tablet TAKE 1 TABLET WEEKLY 4 Active sertraline (ZOLOFT) 100 MG tablet Take 100 mg by mouth daily. Active vitamins A,C,G-lbhg-viqjiq (PRESERVISION AREDS) 4,296 mcg-226 mg-90 mg Cap Take 1 capsule by mouth 2 (two) times a day with meals. Active omega 5-quz-fiw-fish oil 1,000 (120-180) mg Cap Take 1 capsule by mouth daily. Active folic acid (FOLVITE) 400 MCG tablet Take 400 mcg by mouth 2 (two) times a day. Active magnesium hydroxide (MOM) 400 mg/5 mL Susp Act [place] Social History Tobacco Use Types Packs/Day Years Used Date Smoking Tobacco: Never Smokeless Tobacco: Never Tobacco Cessation:Counseling Given: Not Answered Education Answer Date Recorded Are you interested in more education? Not on darlene e 12/27/2022 Are you concerned about learning? Not on file 12/27/2022 No 12/27/2022 No 12/27/2022 Digital Access Answer Date Recorded No 01/27/2023 No 01/27/2023 Reliable internet access at home? Not on file 01/27/2023 Device with a working camera? Not on file Comments Unknown Sex and Gender Information Value Date Recorded Sex Assigned at Female 10/23/2022 8:01 PM EST Legal Sex Female 10:00 PM EDT Gender Identity Female 10/23/2022 8:01 PM EST Sexual Orientation Straight 10/23/2022 8: 01 PM EST Last Filed Vital Signs Vital Sign Reading Time Taken Comments Blood Pressure - - Pulse - - Temperature - - Respiratory Rate - - Oxygen Saturation - - Inhaled Oxygen Concentration - - Weight 55.6 kg (122 lb 9.6 oz) 06/04/2024 1:18 P M EDT Height 172.7 cm (5' 8 ) 06/04/2024 1:18 PM EDT Body Mass Index 18.64 06/04/2024 1:18 PM EDT Plan of Treatment Health Maintenance Due Date Last Done Comments DEPRESSION SCREENING 1963 HEPATITIS C SCREENING 1969 MAMMOGRAM 1991 COLOGUARD 1996 COLONOSCOPY 1996 COLORECTAL CANCER SCREENING 1996 FIT TEST 1996 FOBT 1996 SIGMOIDOSCOPY 1996 VIRTUAL COLONOSCOPY 1996 LIPID PANEL 11/29/2011 11/28/2006 OSTEOPOROSIS SCREENING INITIAL (ONE-TIME) 2016 INFLUENZA VACCINE (#1) 2025 , 06/07/2023, 06/01/2022, Additional history exists COVID-19 VACCINE ( season) 2025 05/31/2024, 01/15/2024, 06/07/2023, Additional history exists Adult Td,Tdap Booster 06/27/2032 06/27/2022 , 03/10/2012, 09/01/2003 PNEUMOCOCCAL VACCINES (50+ years) Completed 02/25/2018, 02/11/2017, 12/18/2007 ZOSTER VACCINES Completed 07/07/2020, 04/21/2020 RSV VACCINE Completed 06/07/2023 SMOKING STATUS SCREENING (Once After 26 Yrs) Completed 09/03/2024 HEPATITIS A VACCINES Aged Out No long er eligible based on patient's age to complete this topic HIB VACCINES Aged Out No longer eligi ble based on patient's age to complete this topic MENINGOCOCCAL VACCINES (ACWY) Aged Out No longer eligible based on patient's age to complete this topic MENINGOCOCCAL VACCINES (B) Aged Out N o longer eligible based on patient's age to complete this topic Medical Devices Not on file Insurance [place] BLUE [place]AC[place] RE[place] Care Teams Checker And Packer Relationship Specialty Start Date End Date Roxane Preston DO [address] [place] [phone] [email or web address] PCP - General Family Medicine 05/11/24 Additional Source Comments The information contained in this document represents components of the legal health record. It is not the complete legal health record.[facility]
== END 2025-07-05 15:15 | disposition home or self-care (01) ==
LOC: HO.RHES 13:59
PROVIDERS: PCP Family Medicine; Visit Provider Student in an Organized Health Care Education/Training Program
DX: M45.9 Ankylosing spondylitis of unspecified sites in spine (principal); M85.80 Other specified disorders of bone density and structure, unspecified site; M17.0 Bilateral primary osteoarthritis of knee; M25.561 Pain in right knee; Z51.81 Encounter for therapeutic drug level monitoring; Z79.620 Long term (current) use of immunosuppressive biologic; Z79.631 Long term (current) use of antimetabolite agent
CPT/HCPCS: 20610; 99214

== ENCOUNTER → 2025-07-05 13:59 | Outpatient (BNVA) | payer MEDICARE, SELFPAY | PROVIDERS: Visit Provider Student in an Organized Health Care Education/Training Program | DX: M17.0 Bilateral primary osteoarthritis of knee (principal); M45.9 Ankylosing spondylitis of unspecified sites in spine; M85.80 Other specified disorders of bone density and structure, unspecified site; Z79.620 Long term (current) use of immunosuppressive biologic; Z79.631 Long term (current) use of antimetabolite agent | CPT/HCPCS: 20610; 99212; J2003; J3301 ==

== ENCOUNTER 2025-08-01 10:18 | Outpatient (REF) | payer MEDICARE, SELFPAY ==
--- NOTE | ~2025-08-01 | MM_ITS ---
EXAMINATION: DXA BONE DENSITY AXIAL HISTORY: M81.0 - Age-related osteoporosis without current pathological fracture TECHNIQUE: [employer] Dual energy absorptiometry (DEXA) of the lumbar spine, total left hip, and femoral neck was performed. COMPARISON: Comparison is made with the prior examination dated July 2023. FINDINGS: The bone mineral density of the lumbar spine is 1.212 g/cm2, corresponding to a T-score of 0.3, and a Z-score of 2.2. This is indicative of normal bone mineral density. This represents a BMD change of 9.5% compared to the prior exam. This is statistically significant. The bone mineral density of the left total hip is 0.826 g/cm2, corresponding to a T-score of -1.4, and a Z-score of 0.3. This is indicative of osteopenia. This represents a BMD change of 2.2% compared to the prior exam. This is not statistically significant. The bone mineral density of the left femoral neck is 0.746 g/cm2, corresponding to a T-score of -2.1, and a Z-score of -0.1. This is indicative of osteopenia. This represents a BMD change of 3.2% compared to the prior exam. This is not statistically significant. FRACTURE RISK: Not assessed as patient is on osteoporosis treatment. MM/XR DEXA axial skeleton IMPRESSION: Based on bone mineral density, and according to World Health Organization (WHO) criteria, the diagnosis is consistent with osteopenia based on lowest T score of -2.1 in the left femoral neck. Treatment Recommendations: NOF guidelines recommend consideration for treatment in postmenopausal women and men age 50 and older presenting with the following: -A hip or vertebral (clinical or morphometric) fracture. -T-score less than or equal to -2.5 at the femoral neck or spine after appropriate evaluation to exclude secondary causes. -Low bone mass at the hip or spine and a 10-year fracture probability by FRAX of greater than or equal to 3% for hip fracture or greater than or equal to 20% for major osteoporotic fracture based on the [place] adapted WHO algorithm. Other Recommendations: All treatment decisions require clinical judgment and consideration of individual patient factors, including patient preferences, comorbidities, previous drug use, risk factors not captured in the FRAX model (e.g. frailty, falls, vitamin D deficiency, increased bone turnover, interval significant decline in bone density) and possible under or overestimation of fracture risk by FRAX. Additional medical evaluation for secondary cause of low bone mineral density may be appropriate. FUTURE SCAN RECOMMENDATION: People with diagnosed cases of osteoporosis or at high risk for fracture should have regular bone mineral density tests. For patients eligible for Medicare, routine testing is allowed once every 2 years. The testing frequency can be increased to one year for patients who have rapidly progressing disease, those who are receiving or discontinuing medical therapy to restore bone mass, or have additional risk factors. Statistically, 68% of repeat scans fall within 1 SD (+/- 0.010 g/cm2 for AP spine L1-L4) and 1 SD (+/- 0.012 g/cm2 for femur total) FRAX is a trademark of the [employer]'s [place] [employer] Metabolic Bone Disease, a World Health Organization (WHO) Collaborating Center. Electronically signed by: Lina Monahan MD 08/01/2025 10:53 AM BANDAR
--- OUTSIDE RECORDS SUMMARY | 2025-08-01 12:45 | XMS_ITS | Clinical Summary ---
Author Organization [facility] Address [address] [place] [id number] Phone Care Team Providers Care Switchman Name Role Phone Roxane Preston DO Primary [...] 100 mg by mouth daily. Active vitamins A,C,F-imqi-hnmryl (PRESERVISION AREDS) 4,296 mcg-226 mg-90 mg Cap Take 1 capsule by mouth 2 (two) times a day with meals. Active omega 3-zdh-jjv-fish oil 1,000 (120-180) mg Cap Take 1 [...] [place] BLUE [place]AC[place] Care Teams Switchman Relationship Specialty Start Date End Date Roxane Preston DO [address] [place] [id number] [email or web address] PCP - General Family Medicine 05/11/24 Additional Source Comments The information contained in this document represents components of the legal health record. It is not the complete legal health record.[facility]
== END 2025-08-01 10:19 | disposition home or self-care (01) ==
LOC: HO.MAMMO 10:18
PROVIDERS: PCP Family Medicine; Visit Provider Student in an Organized Health Care Education/Training Program
DX: M81.0 Age-related osteoporosis without current pathological fracture (principal)
CPT/HCPCS: 77080

== ENCOUNTER → 2025-08-01 10:30 | Outpatient (BNV) | payer MEDICARE, SELFPAY | PROVIDERS: PCP Family Medicine; Visit Provider Radiology Diagnostic Radiology | DX: E28.39 Other primary ovarian failure (principal) | CPT/HCPCS: 77080 ==